=== PATIENT | male | born 1950 | race Caucasian/White ===

== ENCOUNTER → 2017-07-06 | Outpatient (CLI) | payer MEDICARE ==
[2017-07-06 14:08] LABS: BASO # 0.1 10^3/uL (0.0-0.2); BASO % 1.4 % (0.0-1.0); EOS # 0.3 10^3/uL (0.0-0.50); EOS % 3.7 % (0.0-3.0); HEMOGLOBIN 14.2 g/dl (13.5-17.5); IMMATURE GRANULOCYTE % 0.6 % (0-3.0); LYMPH # 1.5 10^3/uL (1.5-4.5); MEAN CORPUSCULAR HEMOGLOBIN 32.1 pg (27.0-33.0); MEAN CORPUSCULAR VOLUME 97.1 fl (80.0-96.0); MONO # 0.6 10^3/uL (0.0-0.8); MONO % 8.1 % (0.0-5.0); NEUTROPHILS # 4.7 10^3/uL (1.8-7.7); NEUTROPHILS % 65.2 % (36.0-66.0); PLATELET COUNT, AUTOMATED 167 10^3/uL (150-450); RED BLOOD COUNT 4.43 10^6/uL (4.30-6.10); RED CELL DISTRIBUTION WIDTH 13.3 % (11.5-14.5); WHITE BLOOD COUNT 7.3 10^3/uL (4.0-10.0)
[2017-07-06 14:13] LABS: ANION GAP 6 MEQ/L (8-16); BLOOD UREA NITROGEN 16 MG/DL (7-18); CARBON DIOXIDE LEVEL 29 MEQ/L (21-32); CHLORIDE LEVEL 103 MEQ/L (98-107); CREATININE FOR GFR 1.04 MG/DL (0.70-1.30); GLOMERULAR FILTRATION RATE > 60.0 (>49); GLUCOSE, FASTING 97 MG/DL (70-100); POTASSIUM SERUM 4.5 MEQ/L (3.5-5.1); SODIUM LEVEL 138 MEQ/L (136-145)
[2017-07-06 14:16] LABS: INR 1.87; PROTHROMBIN TIME 22.1 SECONDS (12.4-14.5)
[2017-07-06 14:17] LABS: PARTIAL THROMBOPLASTIN TIME 38.3 SECONDS (26.8-37.9)
== END ==
LOC: M SMT 11:14
DX: Z01.818 Encounter for other preprocedural examination (principal); I70.211 Atherosclerosis of native arteries of extremities with intermittent claudication, right leg; D69.8 Other specified hemorrhagic conditions
CPT/HCPCS: 80048

== ENCOUNTER 2017-08-08 11:53 | Day surgery (SDC) | payer MEDICARE ==
[2017-08-08] MEDS ORDERED: LIDOCAINE 2% INJ 100 MG/5 ML SDV (FOR ANES.) As Ordered (12:27)
[2017-08-08] MEDS ORDERED: fentaNYL 100 MCG/2 ML INJECTION (J3010) As Ordered (12:27)
[2017-08-08] MEDS ORDERED: MIDAZOLAM INJ 2 MG/2 ML VIAL (J2250) As Ordered (12:27)
[2017-08-08] MEDS ORDERED: ROCURONIUM BROMIDE 50 MG/5 ML VIAL As Ordered (12:27)
[2017-08-08] MEDS ORDERED: ONDANSETRON 4MG/2ML VIAL (J2405) As Ordered (12:27)
[2017-08-08] MEDS ORDERED: dexameTHASONE 4 MG/ML 1ML VIAL (J1100) As Ordered (12:27)
[2017-08-08] MEDS ORDERED: PROPOFOL 200 MG/20 ML VIAL As Ordered (12:27)
[2017-08-08] MEDS: LR 1,000 ML IV (12:58)
[2017-08-08] MEDS: CETACAINE SPRAY 5GM As Ordered (13:10)
[2017-08-08] MEDS ORDERED: NEOSTIGMINE 10 MG/10 ML VIAL (J2710) As Ordered (14:43)
[2017-08-08] MEDS ORDERED: GLYCOPYRROLATE INJ 0.2 MG/ML 2 ML VIAL As Ordered (14:44)
[2017-08-08] MEDS ORDERED: fentaNYL 100 MCG/2 ML INJECTION (J3010) IV (15:30)
[2017-08-08] MEDS ORDERED: PERCOCET 5MG/325MG TAB PO (15:30)
[2017-08-08] MEDS ORDERED: ONDANSETRON 4MG/2ML VIAL (J2405) IV (15:30)
[2017-08-08] MEDS ORDERED: HYDROMORPHONE HCL 0.5 MG/ 0.5 ML SYRINGE (J1170 PER 1) IV (15:30)
[2017-08-08] MEDS ORDERED: LR 1,000 ML IV (15:30)
== END 2017-08-08 16:12 | disposition home or self-care (01) ==
LOC: M SDC 16:12
DX: R91.1 Solitary pulmonary nodule (principal); J44.9 Chronic obstructive pulmonary disease, unspecified; I25.10 Atherosclerotic heart disease of native coronary artery without angina pectoris; I25.2 Old myocardial infarction; I11.9 Hypertensive heart disease without heart failure; R09.82 Postnasal drip; J33.9 Nasal polyp, unspecified; I48.91 Unspecified atrial fibrillation; E78.00 Pure hypercholesterolemia, unspecified; I73.9 Peripheral vascular disease, unspecified; K21.9 Gastro-esophageal reflux disease without esophagitis; R06.02 Shortness of breath; Z79.899 Other long term (current) drug therapy; Z79.82 Long term (current) use of aspirin; Z87.891 Personal history of nicotine dependence; Z01.812 Encounter for preprocedural laboratory examination; Z79.01 Long term (current) use of anticoagulants; Z95.5 Presence of coronary angioplasty implant and graft; Z95.810 Presence of automatic (implantable) cardiac defibrillator; Z95.0 Presence of cardiac pacemaker
CPT/HCPCS: 31629

== ENCOUNTER → 2017-08-08 | Outpatient (CLI) | payer MEDICARE ==
[2017-08-08 11:22] LABS: INR 1.07
[2017-08-08 11:23] LABS: PARTIAL THROMBOPLASTIN TIME 34.4 SECONDS (25.4-37.6)
== END ==
LOC: M LAB 10:52
DX: Z01.812 Encounter for preprocedural laboratory examination (principal); Z79.01 Long term (current) use of anticoagulants

== ENCOUNTER → 2017-10-24 | Outpatient (CLI) | payer MEDICARE | LOC: M RAD 11:47 | DX: M79.662 Pain in left lower leg (principal); R60.0 Localized edema | CPT/HCPCS: 93971 ==

== ENCOUNTER → 2017-10-26 | Outpatient (REF) ==
[2017-10-26 13:59] LABS: HEMOGLOBIN 13.4 g/dl (13.5-17.5); MEAN CORPUSCULAR HEMOGLOBIN 31.2 pg (27.0-33.0); MEAN CORPUSCULAR HGB CONC 31.9 g/dl (32.0-36.5); MEAN CORPUSCULAR VOLUME 97.9 fl (80.0-96.0); PLATELET COUNT, AUTOMATED 239 10^3/uL (150-450); RED BLOOD COUNT 4.29 10^6/uL (4.30-6.10); RED CELL DISTRIBUTION WIDTH 13.7 % (11.5-14.5); WHITE BLOOD COUNT 5.2 10^3/uL (4.0-10.0)
[2017-10-26 14:26] LABS: ANION GAP 10 MEQ/L (8-16); BLOOD UREA NITROGEN 13 MG/DL (7-18); CALCIUM LEVEL 9.5 MG/DL (8.8-10.2); CARBON DIOXIDE LEVEL 27 MEQ/L (21-32); CHLORIDE LEVEL 103 MEQ/L (98-107); CREATININE FOR GFR 0.81 MG/DL (0.70-1.30); GLOMERULAR FILTRATION RATE > 60.0 (>49); GLUCOSE, FASTING 96 MG/DL (70-100); POTASSIUM SERUM 4.1 MEQ/L (3.5-5.1); SODIUM LEVEL 140 MEQ/L (136-145)
== END ==
DX: I48.91 Unspecified atrial fibrillation (principal)

== ENCOUNTER → 2017-10-30 | Outpatient (REF) ==
[2017-10-30 17:05] LABS: HEMATOCRIT 39.2 % (42.0-52.0); HEMOGLOBIN 12.5 g/dl (13.5-17.5); MEAN CORPUSCULAR HEMOGLOBIN 31.3 pg (27.0-33.0); MEAN CORPUSCULAR HGB CONC 31.9 g/dl (32.0-36.5); PLATELET COUNT, AUTOMATED 204 10^3/uL (150-450); RED CELL DISTRIBUTION WIDTH 13.5 % (11.5-14.5); WHITE BLOOD COUNT 5.2 10^3/uL (4.0-10.0)
[2017-10-30 17:51] LABS: ANION GAP 13 MEQ/L (8-16); BLOOD UREA NITROGEN 10 MG/DL (7-18); CALCIUM LEVEL 8.9 MG/DL (8.8-10.2); CARBON DIOXIDE LEVEL 22 MEQ/L (21-32); CHLORIDE LEVEL 107 MEQ/L (98-107); CREATININE FOR GFR 0.72 MG/DL (0.70-1.30); GLOMERULAR FILTRATION RATE > 60.0 (>49); GLUCOSE, FASTING 84 MG/DL (70-100); POTASSIUM SERUM 4.1 MEQ/L (3.5-5.1); SODIUM LEVEL 142 MEQ/L (136-145)
== END ==
DX: R41.82 Altered mental status, unspecified (principal)

== ENCOUNTER 2017-11-07 12:16 | Outpatient (REF) ==
[2017-11-08 10:54] LABS: ANION GAP 9 MEQ/L (8-16); BLOOD UREA NITROGEN 11 MG/DL (7-18); CALCIUM LEVEL 9.3 MG/DL (8.8-10.2); CARBON DIOXIDE LEVEL 27 MEQ/L (21-32); CHLORIDE LEVEL 105 MEQ/L (98-107); CREATININE FOR GFR 0.81 MG/DL (0.70-1.30); GLOMERULAR FILTRATION RATE > 60.0 (>49); GLUCOSE, FASTING 144 MG/DL (70-100); POTASSIUM SERUM 3.6 MEQ/L (3.5-5.1); SODIUM LEVEL 141 MEQ/L (136-145)
== END 2017-11-08 ==
DX: R60.9 Edema, unspecified (principal)

== ENCOUNTER → 2017-11-07 | Outpatient (CLI) | payer MEDICARE | LOC: M PLARAD 12:17 | DX: C34.11 Malignant neoplasm of upper lobe, right bronchus or lung (principal) | CPT/HCPCS: 78815 ==

== ENCOUNTER → 2017-11-14 | Outpatient (CLI) | payer MEDICARE | LOC: M ONCR 13:00 | DX: C34.91 Malignant neoplasm of unspecified part of right bronchus or lung (principal) | CPT/HCPCS: G0463 ==

== ENCOUNTER → 2017-11-16 | Outpatient (CLI) | payer MEDICARE | LOC: M RAD 13:42 | DX: C34.91 Malignant neoplasm of unspecified part of right bronchus or lung (principal); I82.622 Acute embolism and thrombosis of deep veins of left upper extremity | CPT/HCPCS: 93971 ==

== ENCOUNTER → 2017-11-21 | Outpatient (CLI) | payer MEDICARE | LOC: M RAD 13:59 | DX: C34.90 Malignant neoplasm of unspecified part of unspecified bronchus or lung (principal) | CPT/HCPCS: 71046 ==

== ENCOUNTER 2017-12-04 13:28 | Outpatient (RCR) | payer MEDICARE | END 2017-12-06 | LOC: M ONCR 13:28 | DX: C34.11 Malignant neoplasm of upper lobe, right bronchus or lung (principal) | CPT/HCPCS: 77334 ==

== ENCOUNTER 2017-12-08 14:14 | Outpatient (RCR) | payer MEDICARE | END 2018-01-05 | LOC: M ONCR 14:14 | DX: C34.11 Malignant neoplasm of upper lobe, right bronchus or lung (principal) | CPT/HCPCS: 77300 ==

== ENCOUNTER → 2017-12-21 | Outpatient (CLI) | payer MEDICARE | LOC: M RAD 13:39 | DX: R60.9 Edema, unspecified (principal); Z86.73 Personal history of transient ischemic attack (TIA), and cerebral infarction without residual deficits | CPT/HCPCS: 93971 ==

== ENCOUNTER 2018-01-23 12:28 | Outpatient (RCR) | payer MEDICARE ==
--- NOTE | 2018-01-23 07:58 | RADONC ---
RADIATION ONCOLOGY PROGRESS NOTE DATE: 01/22/2018 CHART NUMBER: [id number] Mr. Macedo is presently a dose of 4680 cGy to his right lung and overall is tolerating his treatments fairly well. He is complaining of skin tenderness specifically over the back. REVIEW OF SYSTEMS: The patient's review of systems is positive for tenderness of his back skin, but is otherwise unchanged. He continues have all the physical issues he had prior to initiation of treatment. PHYSICAL EXAMINATION: On physical exam the patient's skin shows erythema with some dry desquamation over his back. His physical exam is otherwise unchanged. ASSESSMENT: The patient is tolerating his treatments fairly well. I have sent in a prescription for Silvadene to be applied topically. He will be treated tomorrow and receive chemotherapy and then he will take off Monday, and Monday and restart following [place].
[~2018-01-23 12:28] MED LIST: AMLO5TAB4 PO; ANOR1AER INH; APAP500T10 PO; ASPI1TAB PO; CARV6.25 PO; CRES20TA PO; FURO40TA2 PO; KLOR20TA42 FT; LISI40TAB PO; MODA100T13 PO; PRIL20TA2 PO; ROSU40TA3 PO; WARF-22 PO; WARF-23 PO; XARE20TA PO; ZYLO300T6 PO
[2018-01-31] MEDS ORDERED: VICO5TAB16 PO (08:56)
--- NOTE | 2018-02-02 10:46 | RADONC ---
RADIATION ONCOLOGY PROGRESS NOTE DATE: 01/31/2018 CHART #: [id number] Mr. Macedo with lung cancer is currently receiving local regional radiotherapy and he has achieved a dose of 4860 cGy of an anticipated 6840 cGy. He is tolerating his therapy reasonably well with the exception of some skin irritation for which he has been placed on hold. I have discussed with , as to the patient's overall condition. She felt that the patient should remain on hold from his radiotherapy due to the skin irritation and has actually requested that she write him some pain medication because it is causing him significant discomfort. In view of the patient's current physical issues, I am in agreement to withhold therapy until the end of the week. He will be reevaluated next Monday when Dr. Gamez returns from his time off (02/05/2018) Thank you for allowing us the opportunity of participation in the management of this fine gentleman. NOBLE
--- NOTE | 2018-02-07 14:19 | RADONC ---
RADIATION ONCOLOGY PROGRESS NOTE: DATE: 02/05/2018 CHART NUMBER: [id number] Mr. Macedo is thus far at a dose of 4680 cGy to his lung and was last treated on 01/23/2018. The patient did not come in once again today for treatment. He had been complaining of painful skin reaction. The patient will remain on our treatment schedule and we are more than willing to restart treatment if he so desires. We have previously spoken with him about the possibility of hospice as well.
== END 2018-02-05 ==
LOC: M ONCR 12:28
PROVIDERS: ATTEND Radiology Radiation Oncology
DX: C34.11 Malignant neoplasm of upper lobe, right bronchus or lung (principal)

== ENCOUNTER 2018-02-23 12:32 | Outpatient (RCR) | payer MEDICARE ==
--- NOTE | 2018-02-20 07:18 | RADONC ---
RADIATION ONCOLOGY PROGRESS NOTE DATE: 02/19/2018 CHART NUMBER: [id number] Mr. Macedo is presently at a dose of 6120 cGy to his right lung and is tolerating treatments quite well at this point with no complaints at this time related to his radiation therapy. He is having no increased difficulty breathing or swallowing. The patient's review of systems is noncontributory. Denies nausea, vomiting, fevers, chills, night sweats, diplopia, headaches, anxiety or depression, anorexia, weight loss, visual disturbances, chest pain, urinary or bowel difficulties, bone pain, or neurological problems. PHYSICAL EXAMINATION: The patient's skin is in good in condition and has healed nicely. The remainder of his physical exam remains unchanged. Mr. Macedo is tolerating treatments quite well and radiation will continue as scheduled.
[~2018-02-23 12:32] MED LIST changes: -AMLO5TAB4 PO; +AMLO5TAB6 PO; +LISI40TA PO; -LISI40TAB PO; +VICO5TAB16 PO
--- NOTE | 2018-02-27 07:17 | RADONC ---
RADIATION ONCOLOGY TREATMENT SUMMARY DATE: 02/23/2018 CHART #: [id number] DIAGNOSIS: Right lung cancer. STAGE: III B, T4N2M0. ECOG PERFORMANCE STATUS: 4. TREATMENT SUMMARY: Mr. 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 We treated the patient to his primary site for a total dose of 6840 cGy delivered in 38 fractions of 180 cGy each over 74 elapsed days from 12/11/2017 through 02/23/2018. The patient's primary site was treated on a linear accelerator utilizing a 15 MV photon beam. 3-D conformal technique was utilized. Mr. Macedo tolerated his treatments quite well with no significant difficulties related to his radiation therapy other than a brisk skin reaction. The patient is scheduled see me again in 1 month for further followup. He will also continue to be followed by his other physicians as well. cc: AUGUSTA Ibrahim MD A. Melynne Youngblood, MD
[2018-03-06] MEDS ORDERED: DEXA4TA PO (12:23)
[2018-03-06] MEDS ORDERED: CLAR10CA3 PO (12:25)
[2018-03-09] MEDS ORDERED: DEXA4TA PO (15:00)
[2018-03-12] MEDS ORDERED: DEXA4TA PO (11:32)
== END 2018-03-08 ==
LOC: M ONCR 12:32
PROVIDERS: ATTEND Radiology Radiation Oncology
DX: C34.11 Malignant neoplasm of upper lobe, right bronchus or lung (principal)

== ENCOUNTER → 2018-04-04 | Outpatient (CLI) | payer MEDICARE ==
[~2018-04-04] MED LIST changes: +CLAR10CA3 PO; +DEXA4TA PO
--- NOTE | 2018-04-09 09:51 | RADONC ---
RADIATION ONCOLOGY FOLLOWUP NOTE DATE: 04/04/2018 CHART NUMBER: [id number] DIAGNOSIS: Right lung cancer. STAGE III B, T4N2M0. ECOG PERFORMANCE STATUS: 4. FOLLOWUP NOTE: Mr. 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 The patient presents today reporting that generally he is doing well. He has no complaints at this time related to his radiation therapy. He reports that he is able to swallow without difficulty and has no increased shortness of breath. The patient does report that he is continuing with his chemotherapy and has another cycle to go. The patient review of systems remains positive for his physical limitations secondary to a stroke. He cannot use his left arm or leg. He has decreased energy and continues to have some shortness of breath. He requires a wheelchair. He denies nausea, vomiting, fevers, chills, night sweats, visual disturbances, chest pain, urinary or bowel difficulties. 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 HEENT exam is normocephalic, atraumatic. Extraocular movements are intact. There is no palpable cervical, supraclavicular, infraclavicular, axillary or inguinal lymphadenopathy present. His lungs are generally clear to auscultation and percussion. His heart has regular rate and rhythm. Abdominal exam was not undertaken. ASSESSMENT: The patient is continuing his close management and follow up with his medical oncologist. He is continuing with systemic therapy. In light of this, I am discharging him from our followup except on a p.r.n. basis. cc: AUGUSTA Ibrahim MD A. Melynne Youngblood, MD
== END ==
LOC: M ONCR 10:36
PROVIDERS: ATTEND Radiology Radiation Oncology
DX: C34.11 Malignant neoplasm of upper lobe, right bronchus or lung (principal)

== ENCOUNTER → 2018-06-06 | Outpatient (CLI) | payer MEDICARE ==
[~2018-06-06] MED LIST changes: -ASPI1TAB PO; +ASPI81TA26 PO; -CRES20TA PO; +CRES20TA2 PO; -VICO5TAB16 PO; +VICO5TAB17 PO
--- NOTE | 2018-06-07 16:10 | REP ---
HISTORY: Lung carcinoma. COMPARISON: 11/07/2017 and 08/24/2017. After the intravenous administration of 8.0 mCi of FDG-18, triplane whole body PET/CT was performed from the skull base to the mid thighs. The large hypermetabolic right lung mass seen on the prior CT PET of 11/07/2017 is much smaller. Abnormal hypermetabolic activity is still seen in the right upper lobe with SUV values over 3.0 and some of which is pleural based. In addition, there is hypermetabolic activity of over 4.2 in the right suprahilar region. There is a new focus of abnormal hypermetabolic activity seen in the left lung lower lobe abutting the descending thoracic aorta having SUV values equaling 6.0. This area measures approximately 2.3 cm. The right upper lobe mass which is no longer hypermetabolic measures approximately 2.4 x 2.7 cm. This excludes the hilar hypermetabolic component, which measures approximately 1.8 cm. There is a small right pleural effusion. No other abnormal hypermetabolic foci are seen in the neck, chest, abdomen or pelvis. There is hypermetabolic activity seen in the left shoulder glenohumeral joint which is nonspecific, but may need further imaging with contrast enhanced CT since the patient has a pacemaker and is not a candidate for MRI. This has SUV values greater than 6.0. Metastatic versus infectious versus active arthritic changes should be considered. IMPRESSION: 1. Intrathoracic hypermetabolic foci and right pleural effusion as described above. 2. Left shoulder hypermetabolic activity as described above. 3. Scattered nonspecific areas of increased FDG-18 in the spine too numerous to count or individually assess, but with multiple areas of hypermetabolic activity with SUV values up to 4.0. This should be correlated with conventional bone scintigraphy to assess for metastatic skeletal lesions. Electronically Signed by James Brown DO 06/07/2018 06:58 P
== END ==
LOC: M PLARAD 10:17
PROVIDERS: ATTEND Internal Medicine Hematology & Oncology
DX: C34.11 Malignant neoplasm of upper lobe, right bronchus or lung (principal); J91.8 Pleural effusion in other conditions classified elsewhere
CPT/HCPCS: 78815; A9552

== ENCOUNTER → 2018-10-04 | Outpatient (CLI) | payer MEDICARE ==
[~2018-10-04] MED LIST changes: +BUPIVACAINE HCL 0.5% 10 ML VIAL As Ordered ONE; +LIDOCAINE 2% MDV 20 ML VIAL As Ordered ONE; +PRED20TA PO; +ROSU20TA5 PO; -ROSU40TA3 PO; +ROSU40TA4 PO; +ceFAZolin 1GM INJ (J0690 PER 500MG) As Ordered ONE
--- NOTE | 2018-10-08 22:24 | ROOPDOC ---
[facility] Report Of Operation Report of Operation DATE OF PROCEDURE: 10/04/2018 PREOPERATIVE DIAGNOSIS: Lung cancer. POSTOPERATIVE DIAGNOSIS: Lung cancer. PROCEDURE: Ultrasound guided right internal jugular vein cannulation. Fluoroscopic guided right internal jugular vein tunneled central venous catheter with subcutaneous port placement with placement of a power injectable Bard Fontenelle Power Port with 24 centimeter length catheter. SURGEON: Dr. Nolan Esteves M.D. AGER OPERATOR: Simon Song ANESTHESIA: Local with 20 mL of 2% lidocaine mixed with 0.5% Marcaine. SEDATION TIME: None. ANTIBIOTICS: Ancef 2 g FLUOROSCOPY TIME: 0.1 minutes. CONTRAST: None. ESTIMATED BLOOD LOSS: 10 mL. IV FLUID: 50 mL. COMPLICATIONS: None. DRAINS: None. SPECIMENS: None. IMPLANTS: Right internal jugular vein tunneled central venous catheter with subcutaneous port placement using a Bard Fontenelle Power Port which is power injectable. INDICATION: Patient is a 68-year-old male with lung cancer who requires central venous access for chemotherapy and blood draws. Patient will undergo a right tunneled central venous catheter placement with subcutaneous port. Procedure was described and explained to the patient in detail including drawing of pictures showing the procedure and anatomy associated with insertion of the tunneled central venous catheter was subcutaneous port. Risks, benefits, and alternative treatment options were discussed with the patient. Alternative treatment options included, but were not limited to, no intervention. Benefits included, but were not limited to, access for chemotherapy infusion centrally, avoiding recurrent venous cannulations , IV placements and sclerosis of peripheral veins. Risks included, but were not limited to, infection, bleeding, pneumothorax, hemothorax, possible need for further open surgical intervention, renal failure requiring hemodialysis, failure of the tunneled central venous catheter with subcutaneous port to function requiring evaluation, revision and/or replacement, adverse and/or allergic reaction to the sedation medications and/or local anesthetics, anesthetic and sedation complication, possible need for transfusion of blood products, allergic reaction and/or complication from the prepping and draping materials, bruising, scarring, cerebrovascular accident, myocardial infarction, pulmonary embolus, deep venous thrombosis, poor satisfaction, poor results, poor outcome, loss of limb and loss of life. Risks of not performing the port insertion included but were not limited to inability to gain access for chemotherapy, inability to gain access for blood draws and laboratory evaluation, sclerosis and thrombophlebitis of peripheral veins and pain associated with continued peripheral cannulations. Patient's questions were answered. Patient voices understanding of these risks, benefits, and alternative treatment options. Patient voices acceptance of the risks associated with placement of a central venous tunneled catheter with subcutaneous port placement and consents to proceed with tunneled central venous catheter with subcutaneous port placement. No guarantees or promises were made to the patient regarding the results or outcome of the procedure. DESCRIPTION OF PROCEDURE: Patient was taken to the angiography suite, placed supine on the angiography room table, and prepped and draped in a standard surgical fashion. A time-out was conducted by myself and the team members involved in the procedure, confirming the correct procedure, patient, and laterality. Ultrasound was then used to evaluate the right internal jugular vein, which was noted to be easily compressible, widely patent, and free of thrombus. Ultrasound was then used to guide cannulation of the right internal jugular vein with a micropuncture needle with real-time concurrent visualization of the entry of the needle into the right internal jugular vein with a hardcopy image preserved. The skin overlying the right internal jugular vein was anesthetized with 2% lidocaine mi xed with 0.5% Marcaine prior to cannulation. Once the right internal jugular vein was cannulated, the micropuncture wire was advanced through the micropuncture needle, which was up-sized to a micropuncture sheath. A J wire was advanced through the micropuncture sheath. The right internal jugular vein was then dilated under fluoroscopic guidance, and a #8-Micronesian introducer sheath was positioned through the right internal jugular vein into the superior vena cava. The wire was removed, and the #8-Micronesian s brandan lumen catheter, which had been tunneled from a puncture wound in the right chest and brought out at the puncture wound at the right internal jugular vein entry site, was advanced through the introducer sheath under fluoroscopic guidance. The introducer sheath was then removed, and the catheter was positioned with the tip in the superior vena cava/right atrial junction under fluoroscopic guidance. The catheter was cut to a length of 24 cm and attached to the port. A pocket was created in the right chest after anesthetizing the overlying tissue with 2% lidocaine mixed with 0.5% Marcaine. The port was placed in the pocket and cannulated using an access needle. The port was noted to aspirate and flush easily and then was flushed with heparinized saline. The incision in the chest was closed using # 4-0 Monocryl suture in inverted interrupted fashion. The puncture wound in the right neck was closed using a #4-0 Monocryl in inverted interrupted fashion. Steri-Strips and dressings were applied. Patient tolerated the procedure well. All instrument, sponge, and needle counts were correct at the end of the case. There were no complications. Dr. Esteves was present for and directed the entire case. Patient was transferred to the recovery area and subsequently discharged in stable condition. The tunneled central venous catheter with subcutaneous port is stable for use for access. RADIOLOGIC SUPERVISION AND INTERPRETATION: The ultrasound showed the right internal jugular vein to be easily compressible, widely patent, and free of thrombus. Ultrasound was used to guide cannulation of the right internal jugular vein with real-time concurrent visualization of the entry of the needle into the right internal jugular vein. The right internal jugular vein was then dilated under fluoroscopic guidance with a #8-Micronesian introducer sheath placed under fluoroscopic guidance. The 8 Micronesian single lumen catheter was advanced through the introducer sheath positioned with the tip in the superior vena/right atrial junction using fluoroscopic guidance with final fluoroscopic image showing the catheter and port to be in good position and good alignment with the tip in the superior vena cava/right atrial junction with no pneumo- or hemothorax noted. The tunneled central venous catheter with subcutaneous port is stable for use. Ramana Esteves MD Oct 08, 2018 22:24
== END ==
LOC: M IRPRO 12:30
PROVIDERS: ATTEND Surgery Vascular Surgery
DX: C34.80 Malignant neoplasm of overlapping sites of unspecified bronchus and lung (principal); I10 Essential (primary) hypertension; E78.5 Hyperlipidemia, unspecified; J44.9 Chronic obstructive pulmonary disease, unspecified; K21.9 Gastro-esophageal reflux disease without esophagitis; M10.9 Gout, unspecified
CPT/HCPCS: 36563; 76937; 77001; C1788; C1894; J0690

== ENCOUNTER → 2018-10-09 | Outpatient (CLI) | payer MEDICARE ==
[~2018-10-09] MED LIST changes: -BUPIVACAINE HCL 0.5% 10 ML VIAL As Ordered ONE; -LIDOCAINE 2% MDV 20 ML VIAL As Ordered ONE; -ROSU20TA5 PO; -ceFAZolin 1GM INJ (J0690 PER 500MG) As Ordered ONE
--- NOTE | 2018-10-10 08:24 | REP ---
PET/CT: History: Restaging lung cancer. Status post chemo and radiation therapy. Comparisons: Comparison PET/CT studies are dated June 06, 2018, November 07, 2017, and August 24, 2017. TECHNIQUE: 49 minutes following the intravenous injection of a 8.55 mCi dose of F-18 FDG, three-dimensional PET scintigraphy is acquired from the skull base to the proximal thighs. Triplanar noncontrast CT scanning is acquired through the same anatomic range for attenuation correction, and image registration with scan parameters optimized to minimize radiation exposure to the patient. PET scintigraphy and CT datasets were fused and displayed on a workstation with multiplanar and projection display capability. PET/CT Findings: There is an area of encephalomalacia in the right temporal lobe and right basal ganglia consistent with an old cerebral infarction. There is a left-sided transvenous pacemaker and a right-sided Zmrmch-O-Yacn. There is a moderate size right pleural effusion. There is partial atelectasis in the right upper lobe of the lung. There is extensive vascular calcification. There appears to be a left inguinal hernia transmitting abdominal fat. On PET scintigraphy images, there is no abnormal head and neck uptake. There is skeletal muscle uptake about the right chest which is mild and may be post radiation therapy change. There is an ill-defined area of mildly hypermetabolic uptake in the collapsed portion of the right upper lobe with maximum standard uptake value 4.56 which is nonspecific. There is an area of similar avidity mildly hypermetabolic uptake in the anteromedial pleuroparenchymal region of the left upper lobe adjacent to what appears to be some epicardial pace making leads, maximum standard uptake value 4.83. These areas were not present on the prior PET/CT. The moderate right pleural effusion is significantly larger than it was on June 06, 2018. There is, however, no definite hypermetabolic uptake associated with the pleural effusion. There are parenchymal opacities in the right hilus and right perihilar region with low-level hypermetabolic uptake as well in the range of 4.14 to 3.55. Morphologically, this is most compatible with postradiation pneumonitis and fibrosis. No definite hypermetabolic adenopathy is seen. No abnormal adrenal uptake is seen. Normal hepatic, splenic, gastrointestinal, and genitourinary FDG distribution is noted in the abdomen and pelvis. No abnormal hypermetabolic uptake is seen in the abdomen and pelvis. No suspicious skeletal hypermetabolic uptake is visible. Impression: 1. Moderate size right pleural effusion, increased since the prior study. 2. 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 3. Encephalomalacia related to old right cerebral infarction. Electronically Signed by Chris Conklin MD 10/10/2018 12:09 P
== END ==
LOC: M PLARAD 12:24
PROVIDERS: ATTEND Internal Medicine Hematology & Oncology
DX: C34.11 Malignant neoplasm of upper lobe, right bronchus or lung (principal)
CPT/HCPCS: 78815; A9552

== ENCOUNTER → 2018-10-24 | Outpatient (CLI) | payer MEDICARE ==
[~2018-10-24] MED LIST changes: +ROSU20TA5 PO
[2018-10-24 14:20] VITALS: BP 138/94
--- NOTE | 2018-10-24 14:36 | REP ---
CHEST, TWO VIEWS: Two views of the chest are performed status post right thoracentesis. There is no evidence of pneumothorax. There is mild residual right pleural fluid or thickening. Right paratracheal soft tissue is noted. There is a right central venous catheter. Multiple sternal wires are present. There is a left single lead pacemaker. Cardiac silhouette is slightly prominent. IMPRESSION: No pneumothorax status post right thoracentesis with mild residual right pleural fluid/thickening. Electronically Signed by Matt Vallejo MD 10/25/2018 04:45 P
--- NOTE | 2018-10-25 16:35 | REP ---
Ultrasound-guided thoracentesis The procedure was performed by JEFFY Hodge, under the direct supervision of Dr. Vallejo. The risks and benefits of the procedure were explained to the patient and informed consent was obtained both verbally and written. Directly prior to the start of the procedure, a formal timeout was completed in the exam room. Pleural fluid in the right lung zone was localized using ultrasound guidance. The skin was prepped and draped in a sterile fashion. 4 ml of 1% lidocaine was used as a local anesthetic. Using ultrasound guidance, an 8-Austrian multi side-hole catheter was inserted and advanced into the fluid. 1,500 ml of cabrera colored fluid was withdrawn and sent to the lab for analysis. The patient tolerated the procedure well and there were no immediate complications. After the appropriate amount of monitored convalescence, the patient was discharged from the department. Reviewed by JEFFY Charles 10/24/2018 02:35 P Electronically Signed by Matt Vallejo MD 10/25/2018 04:26 P
== END ==
LOC: M IRPRO 10:40
DX: J90 Pleural effusion, not elsewhere classified (principal)

== ENCOUNTER → 2018-12-10 | Outpatient (CLI) | payer MEDICARE ==
--- NOTE | 2018-12-10 11:33 | REP ---
CHEST X-RAY: Two views. HISTORY: Pleural effusion. COMPARISON STUDY: October 24, 2018. FINDINGS: Moderate cardiac enlargement is noted. There is a pacemaker with an epicardial and transvenous lead in place unchanged. Median sternotomy wires are again noted. The aorta is tortuous. There is a right-sided Efwvnf-H-Xvkm catheter. There is a small to moderate amount of right pleural fluid again noted, increased in size from the October 24, 2018 prior study. No new infiltrate. There is no evidence of pulmonary edema. IMPRESSION: Increasing small right pleural effusion. Cardiomegaly with pacemaker. Right-sided Kdjfgq-A-Insa catheter. Electronically Signed by Chris Conklin MD 12/10/2018 12:37 P
== END ==
LOC: M RAD 10:57
PROVIDERS: ATTEND Internal Medicine Hematology & Oncology
DX: J90 Pleural effusion, not elsewhere classified (principal); I51.7 Cardiomegaly; I25.5 Ischemic cardiomyopathy; Z95.5 Presence of coronary angioplasty implant and graft; Z97.8 Presence of other specified devices

== ENCOUNTER → 2018-12-10 | Outpatient (CLI) | payer MEDICARE ==
[2018-12-10 13:18] LABS: BLOOD UREA NITROGEN 14 MG/DL (7-18); CALCIUM LEVEL 9.2 MG/DL (8.8-10.2); CARBON DIOXIDE LEVEL 36 MEQ/L (21-32); CHLORIDE LEVEL 95 MEQ/L (98-107); CREATININE FOR GFR 0.85 MG/DL (0.70-1.30); GLOMERULAR FILTRATION RATE > 60.0 (>49); GLUCOSE, FASTING 80 MG/DL (70-100); POTASSIUM SERUM 3.6 MEQ/L (3.5-5.1); SODIUM LEVEL 138 MEQ/L (136-145)
== END ==
LOC: M LAB 11:34
PROVIDERS: ATTEND Physician Assistant
DX: I25.5 Ischemic cardiomyopathy (principal)

== ENCOUNTER → 2019-01-21 | Outpatient (CLI) | payer MEDICARE ==
[~2019-01-21] MED LIST changes: +AMOX500T PO
--- NOTE | 2019-01-21 11:06 | REP ---
LEFT HIP, TWO VIEWS: Two views of the left hip are performed. No acute fracture or dislocation is seen. There is mild joint space narrowing, subchondral sclerosis and spurring. Vascular calcifications and metallic clips are seen medial to the proximal femur. IMPRESSION: Mild degenerative changes. Electronically Signed by Matt Vallejo MD 01/21/2019 04:22 P
--- NOTE | 2019-01-21 14:32 | REP ---
WHOLE BODY RADIONUCLIDE BONE SCAN: HISTORY: Left hip pain. History of lung cancer. Status post chemoradiation therapy. The patient also reports right hip pain and back pain. TECHNIQUE: 22.0 mCi of technetium 99m MDP is injected and standard whole body bone scan images are acquired. SCINTIGRAPHIC FINDINGS: There is mild arthritic uptake in the medial compartment of the left knee. Otherwise, distribution of skeletal tracer is normal with uptake in bilateral kidneys and in the urinary bladder. There is no evidence to suggest skeletal metastatic disease. Hip and pelvic uptake is normal and symmetric. IMPRESSION: Mild arthritic uptake in the left knee. Otherwise negative radionuclide bone scan. Electronically Signed by Chris Conklin MD 01/21/2019 03:33 P
== END ==
LOC: M RAD 09:51
PROVIDERS: ATTEND Internal Medicine Hematology
DX: C34.91 Malignant neoplasm of unspecified part of right bronchus or lung (principal)
CPT/HCPCS: 73502; 78306; A9503

== ENCOUNTER 2019-03-15 10:16 | Inpatient (IN) | payer MEDICARE ==
[~2019-03-15] VITALS: Ht 193 cm; Wt 110.2 kg
[2019-03-15] MEDS: FUROSEMIDE 40 MG TAB PO SCH ×2 (09:00→20:18)
[~2019-03-15 10:16] MED LIST changes: +CELE1CAP7 PO
[2019-03-15 14:22] VITALS: BP 134/81
[2019-03-15] MEDS ORDERED: AZIT50VL IV (15:14)
[2019-03-15] MEDS ORDERED: ROSU40TA4 PO (15:14)
[2019-03-15] MEDS ORDERED: CEFT1INJ5 IV (15:14)
[2019-03-15 16:00] VITALS: BP 145/81
--- NOTE | 2019-03-15 16:29 | CR.PDOC ---
General Date of Consultation: Mar 15, 2019 Referring Provider: A Attending Physician: VERO SOLOMON MD Consultation REASON FOR CONSULTATION/CHIEF COMPLAINT: R pleural effusion HISTORY OF PRESENT ILLNESS: NSCLC presenting with SOB and found to have recurrent R pleural effusion and troponin elevation to 7.8 Brief synopsis: I received a request for Mr. Macedo's transfer to [facility] from [facility] from Dr. Netta Soriano from the ED there. She told me that Mr. Macedo is a 69 yo man with lung CA and is a patient of Dr. Choi, with signicant cardiac history s/p CABG, has Afib on xarelto, has a PPM and a history of HTN, who came into the ED with SOB and NIELSEN and found have recurrence of a R pleural effusion on CXR in their ED, as well as an elevated troponin to 7.8 that she was reporting as "demand ischemia." When the nursing plumber supervisor, brought the case to me before I spoke with Dr. Soriano, I requested a repeat EKG and a repeat troponin given the degree of elevation, SOB and significant cardiac history and she repeated the troponin and EKG that she reported as troponin having risen to 8.3 while EKG was described as paced without acute ST changes. I then called Dr. Soriano to discuss my concern for transferring this patient with severe troponinemia for concern for acute ACS and possible VA requiring interventional cardiology without any facilities for PCI technology at [facility]. She then told me that she discussed the possible VA with the patient and his , and they declined the option for transfer to [place] for possible intervention for a heart attack citing that they would like him to be DNR/DNI without invasive procedures and moving towards comfort care and really their intention is to get him comfortable by drainage of his R pleural effusion and possible pleurx placement. At that point, it was made clear to me that he was being transferred to [facility] for palliative effusion drainage and palliative care consult as well continuing GOC with this oncologist and at that point, I accepted his transfer here. However on arrival to [facility], he did have the MOLST that was completed by his at [place] as DNR/DNI but the patient expressed that he wanted to have all interventions and on the designated provider speaking with his , she confirmed that they would like him transferred to a facility with potential for interventions if he is having a heart attack. At this time, Dr. Montes De Oca has be gun the effort to facilitate a transfer out to a PCI capable facility. Vital Signs/I&O Vital Signs Date Time Temp Pulse Resp B/P (MAP) Pulse Ox O2 Delivery O2 Flow Rate FiO2 03/15/19 14:22 97.8 70 18 134/81 (98) 99 Nasal Cannula 2.0 Allergies Coded Allergies: No Known Allergies (Unverified , 08/07/17) Home Medications Scheduled Amoxicillin (Amoxicillin) 500 Mg Tablet, 4 TAB PO ONCE for 1 Days, #30 Take 4 tablets (2 grams) po 2 hours prior to dental procedure Azithromycin (Azithromycin) 500 Mg Vial, 500 MG IV ONCE, (Reported) RECEIVED AT [facility] Carvedilol (Carvedilol) 6.25 Mg Tab, 6.25 MG PO BID, (Reported) Ceftriaxone Sodium (Ceftriaxone) 1 Gm Vial, 1 GM IV ONCE, (Reported) RECEIVED AT [facility] Furosemide (Furosemide) 40 Mg Tab, 40 MG PO DAILY, (Reported) Omeprazole Magnesium (Prilosec Otc) 20 Mg Tablet.dr, 20 MG PO DAILY, (Reported) Rivaroxaban (Xarelto) 20 Mg Tab, 20 MG PO QPM, (Reported) Rosuvastatin Calcium (Rosuvastatin Calcium) 40 Mg Tablet, 20 MG PO QPM, (Reported) Scheduled PRN Acetaminophen (Acetaminophen) 500 Mg Tab, 1,000 MG PO TID PRN for PAIN / FEVER, (Reported) VERO SOLOMON MD Mar 15, 2019 16:29
--- NOTE | 2019-03-15 16:49 | HPEPDOC ---
General Date of Admission Mar 15, 2019 at 14:22 Date of Service: Mar 15, 2019 Chief Complaint The patient is a 69-year-old male admitted with a reason for visit of Right Sided Plural Infusion. Source: Patient Exam Limitations: No limitations Timing/Duration: Day(s), Week(s) Severity: Moderate Associated Symptoms: Shortness of breath History of Present Illness Patient 69 years old with past history of CVA, atrial fibrillation, lung cancer was directly transferred to the hospital from [facility] with increased shortness of breath secondary to pleural effusion. 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 He had multiple pleuracentesis in the past. Also patient was found to have elevated troponin level 7.6, second troponin was 8.3. Patient denied any chest pain. After discussion with the patient and wool tamper Dr. Grant, transfer to [place] for possible cardiac catheterization was declined by patient. I did not find imaging study in the file from previous hospital. Home Medications Scheduled Amoxicillin (Amoxicillin) 500 Mg Tablet, 4 TAB PO ONCE Take 4 tablets (2 grams) po 2 hours prior to dental procedure Azithromycin (Azithromycin) 500 Mg Vial, 500 MG IV ONCE, (Reported) RECEIVED AT [facility] Carvedilol (Carvedilol) 6.25 Mg Tab, 6.25 MG PO BID, (Reported) Ceftriaxone Sodium (Ceftriaxone) 1 Gm Vial, 1 GM IV ONCE, (Reported) RECEIVED AT [facility] Furosemide (Furosemide) 40 Mg Tab, 40 MG PO DAILY, (Reported) Omeprazole Magnesium (Prilosec Otc) 20 Mg Tablet.dr, 20 MG PO DAILY, (Reported) Rivaroxaban (Xarelto) 20 Mg Tab, 20 MG PO QPM, (Reported) Rosuvastatin Calcium (Rosuvastatin Calcium) 40 Mg Tablet, 20 MG PO QPM, (Reported) Scheduled PRN Acetaminophen (Acetaminophen) 500 Mg Tab, 1,000 MG PO TID PRN for PAIN / FEVER, (Reported) Allergies Coded Allergies: No Known Allergies (Unverified , 08/07/17) Past Medical History Medical History Poorly differentiated carcinoma of the right upper lobe of the lung stage III B at diagnosis, clinically stage T4N2M0 disease, CVA, atrial fibrillation, left hemiparesis. The patient has a history of organic heart disease complicated by congestive heart failure syndrome in the past. Surgical History he underwent coronary artery bypass grafting of three vessels in 1997. There is history of femoral endarterectomy for peripheral arterial di sease in the year 2016, in he underwent spine surgery at the [facility] in 2007. The patient has an automated implanted defibrillator, and he has undergone hernia surgery in the past. Family History I personally reviewed the history and found not pertinent Social History * Smoker: former Smoker Alcohol: Denies Drugs: denies A-FIB/CHADSVASC A-FIB History Current/History of A-Fib/PAF?: Yes Current PO Anticoag Therapy: Yes Review of Systems Constitutional: Denies: Chills, Fever Eyes: Denies: Pain ENT: Denies: Head Aches Skin: Denies: Lesions Pulmonary: Reports: Dyspnea Cardiovascular: Denies: Chest Pain, Palpitations Gastrointestinal: Denies: Nausea, Vomiting Genitourinary: Denies: Dysuria, Frequency Hematologic: Denies: Bruising, Bleeding Excessively Endocrine: Denies: Polydipsia, Polyphagia Musculoskeletal: Denies: Neck Pain Neurological: Denies: Weakness Psych: Reports: Mood Normal Physical Examination General Exam: Positive: Alert, Cooperative Eye Exam: Positive: PERRLA ENT Exam: Positive: Atraumatic Neck Exam: Positive: Supple; Negative: JVD Chest Exam: Positive: Diminished; Negative: Clear to auscultation Heart Exam: Positive: Irregular Rhythm Telemetry: Positive: Atrial fibrillation Abdomen Exam: Positive: Normal bowel sounds Extremity Exam: Positive: Clubbing; Negative: Cyanosis Skin Exam: Positive: Nl turgor and temperature Neuro Exam: Positive: Strength at 5/5 X4 ext, Cranial Nerves 3-12 NL Psych Exam: Positive: Mental status NL Vital Signs Vital Signs Date Time Temp Pulse Resp B/P (MAP) Pulse Ox O2 Delivery O2 Flow Rate FiO2 03/15/19 14:22 97.8 70 18 134/81 (98) 99 Nasal Cannula 2.0 Assessment/Plan Patient 69 years old with past history of CVA, atrial fibrillation, lung cancer was directly transferred to the hospital from [facility] with increased shortness of breath secondary to pleural effusion. 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 He had multiple pleuracentesis in the past. Also patient was found to have elevated troponin level 7.6, second troponin was 8.3. Patient denied any chest pain. After discussion with the patient and wool tamper Dr. Grant, transfer to [place] for possible cardiac catheterization was declined by patient. I did not find imaging study in the file from previous hospital. Problems (1) Recurrent pleural effusion on right Status: Chronic Problem Text: Secondary to lung malignancy CT chest ordered Appreciate/agree with thoracic surgeon consult (2) Atrial fibrillation Status: Chronic Problem Text: Most likely patient will need pleurocentesis with chest tube or Pleurx placement Started Lovenox in therapeutic dose Heart rate is under control (3) Acute coronary syndrome with high troponin Status: Acute Problem Text: Patient declined to be transferred to acute cardiac facility Appreciate/agree with Dr. Grant recommendations Continue beta fredy, Plavix and aspirin on hold due to possible pleurocentesis tonight (4) Non-small cell carcinoma of right lung, stage 3 Status: Acute Problem Text: Follow-up with oncologist Plan / VTE VTE Prophylaxis Ordered?: Yes SONDRA GONSALEZ DO Mar 15, 2019 16:49
[2019-03-15 17:49] LABS: BLOOD UREA NITROGEN 14 MG/DL (7-18); CARBON DIOXIDE LEVEL 35 MEQ/L (21-32); CHLORIDE LEVEL 97 MEQ/L (98-107); CREATININE FOR GFR 0.99 MG/DL (0.70-1.30); GLOMERULAR FILTRATION RATE > 60.0 (>42); GLUCOSE, FASTING 88 MG/DL (70-100); SODIUM LEVEL 139 MEQ/L (136-145)
--- NOTE | 2019-03-15 18:11 | IPN ---
DATE: 03/15/2019 I was approached by Dr. Hernandez to assist in management on Mr. Macedo. I have known him for several years and I am familiar with his cardiac condition even though I am not totally familiar with his oncologic condition. Apparently he was transferred from [facility] earlier today where he presented for shortness of breath and was found to have elevated troponin and large right pleural effusion. Apparently there was a discussion with the family and the decision was made to transfer him to [place] for mostly palliative care. Upon arrival here, Mr. Macedo changed his mind and wanted to have all the intervention performed and consequently Dr. Hernandez was questioning whether he needs to be transferred to [place]. When I came to talk to the patient he was sitting in a PCU bed. He seemed to be reasonably comfortable even though, certainly chronically ill and appears much more cachectic compared to the time when I saw him last time several months ago. He said that he came to hospital in [place] mostly because of shortness of breath. Apparently had several coughing spells and during each time when he would be coughing he would have chest discomfort but once the coughing stopped the chest discomfort went away. Short of that he denies any other chest discomfort. We had a long discussion at bedside regarding the therapeutic options. I did explain to him that it is likely that he indeed suffered myocardial infarction and sometime in relatively recent past, possibly within 1-2 days. But I expressed my opinion that having cardiac catheterization and potentially receiving a stent would not change his ultimate prognosis which is now determined principally of his progressive lung cancer. After discussing this issue at some length the patient tells me that he is not quite certain what made him decided to rescind his recent DO NOT INTUBATE DO NOT RESUSCITATE but he understands that if he should have a cardiac arrest he would not be resuscitated if the DO NOT INTUBATE DO NOT RESUSCITATE policy is in place and he finds it acceptable. Consequently on my recommendations as I believe that it is in the best interest to treat him conservatively. He agreed to sign DO NOT INTUBATE DO NOT RESUSCITATE form again and we will plan on keeping him in [place] for conservative management. PAST MEDICAL HISTORY: I do not have access to my office records from the hospital (and I will clarify in separate note), addressing his past medical history in more details but he does have chronic ischemic cardiomyopathy with low ejection fraction, he has a history of bypass surgery, he has a history of ICD placement and he has history of chronic atrial fibrillation of many years. There is also history of peripheral vascular disease. He has been chronically anticoagulated. SOCIAL HISTORY: The patient is . He used to smoke but quit many years ago as of lately. There is minimal alcohol use. FAMILY HISTORY: No longer relevant but denies first-degree relatives of early CAD. OUTPATIENT MEDICATIONS: Tylenol as needed, amoxicillin, Zithromax, Coreg 6.25 twice a day, ceftriaxone as needed, furosemide 40 mg daily, Prilosec 20 mg daily Xarelto 20 mg daily and Crestor 20 mg daily No known allergies. On the review of systems he denies any obvious recent fever, chills, nausea, vomiting. Denies any chest discomfort other than pain during his coughing spells. He does report progressive shortness of breath. No abdominal pain. No significant edema. Rest as HPI. PHYSICAL EXAMINATION: The patient appears chronically ill, older than his calendar age and somewhat depressed. Blood pressure 134/81, heart rate has been 70s. He is afebrile. Saturation 99% on 2 liters of oxygen. Weight is 101 kg. I do not appreciate distinct JVP elevation. Lungs are relatively clear on the left from the right they are diminished breath sounds and occasional crackles. I do believe that this corresponding to his right pleural effusion. Heart: Exam reveals irregularly irregular rhythm. I do not appreciate any gallop and there is fairly unimpressive murmur best heard at the apex. Abdomen is soft without tenderness or rebound tenderness. Extremities are free of significant edema. He has fairly dense hemiparesis. LABORATORY: Hemoglobin 12.5, hematocrit 41.6, platelet count 36,000 WB count 5.1 thousand. Basic metabolic panel is normal. Liver function tests are normal and TSH was 2.1. These are from February 22. Current, blood work in our facility at this point is pending. Even though the last the last troponin from outside facility was 8. ECG reveals presence of atrial fibrillation with ventricular pacing. ASSESSMENT/PLAN: Mr. Macedo is a 69-year old unfortunate gentleman who has progressive lung cancer that is currently treated with Keytruda. He is status post radiation chemotherapy and past. He now has large right-sided pleural effusion, I suspect most likely malignant. He also has known ischemic cardiomyopathy with severe LV dysfunction, chronic ICD, chronic atrial fibrillation and history of stroke with dense hemiparesis almost hemiplegia. At this point I think the focus should be on comfort rather than survival. He does not give me any symptoms indicative of acute coronary syndrome and his ECG is nondiagnostic but in any case I do not believe that potential intervention would improve quality of life in any significant way. I do propose that we treat him conservatively with administration of aspirin, Plavix and anticoagulation. Because he will likely need the drainage of his right pleural effusion I would hold Plavix until the decision is made as to what form of drainage will be performed. I would replace Xarelto by Lovenox and therapeutic dose. His rate is well-controlled on carvedilol and I would continue the same. I spoke about this plan with Dr. Hernandez and I will also address this with his on a second occasion. We already had a discussion earlier today and the plan was consistent with his and her wishes. NOBLE
[2019-03-15 19:05] VITALS: BP 145/87
--- NOTE | 2019-03-15 19:12 | REP ---
Clinical: Follow up pleural effusion. Technique: PA and lateral. Comparison: 12/10/2018. Findings: Pleuroparenchymal changes involving the right hemithorax including moderate left pleural effusion and scattered scarring are essentially unchanged. New diffuse ill-defined areas of airspace disease noted throughout the left hemithorax. No obvious left effusion or pneumothorax. Mediastinum and cardiac silhouette are stable with mediastinal adenopathy/mass suspected. Impression: 1. Moderate right pleural effusion and right pleuroparenchymal changes remain essentially stable. 2. Diffuse new areas of opacity involving the left hemithorax. 3. Mediastinal opacities similar to prior examination likely representing elements of mass / adenopathy. Electronically Signed by Abiodun Hendricks MD 03/15/2019 07:03 P
--- NOTE | 2019-03-15 19:22 | REPVR ---
PROCEDURE INFORMATION: Exam: CT Chest With Contrast Exam date and time: 03/15/2019 6:39 PM Age: 69 years old Clinical indication: Shortness of breath; Additional info: Shortness of breath pleural effusion TECHNIQUE: Imaging protocol: Computed tomography of the chest with intravenous contrast. 3D rendering: MIP and/or 3D reconstructed images were created by the technologist. Radiation optimization: All CT scans at this facility use at least one of these dose optimization techniques: automated exposure control; mA and/or kV adjustment per patient size (includes targeted exams where dose is matched to clinical indication); or iterative reconstruction. Contrast material: ISOVUE 370; Contrast volume: 75 ml; Contrast route: IV; COMPARISON: CT CHEST W/ CONTRAST - OUTSIDE PRIOR 07/11/2017 1:28 PM FINDINGS: Lungs: Right upper lobe mass measuring 7.9 x 5.8 x 6.8 cm has migrated medially in association with atelectasis of the right upper lobe. Multiple ground-glass and semi solid opacities throughout the left lung most pronounced in the left upper lobe. Pleural space: Large right pleural effusion. Left pleural cavity unremarkable. Heart: Cardiomegaly.There is severe atherosclerotic calcification of the coronary arteries. Aorta: The aorta demonstrates mild atherosclerotic calcification. Lymph nodes: Confluent right hilar lymphadenopathy likely malignant. Small mediastinal lymph nodes demonstrated as well. Bones/joints: The spine demonstrates mild degenerative changes. Status post sternotomy. Soft tissues: Unremarkable. IMPRESSION: 1. Right upper lobe mass measuring 7.9 x 5.8 x 6.8 cm has migrated medially in association with atelectasis of the right upper lobe. Also noted is bulky confluent right hilar lymphadenopathy likely malignant. 2. Multiple ground-glass and semi solid opacities throughout the left lung most pronounced in the left upper lobe. 3. Cardiomegaly and severe coronary artery disease. 4. Large right pleural effusion. Electronically signed by: Eric Carrillo On 03/15/2019 19:22:16 PM
[2019-03-15] MEDS: ROSUVASTATIN 10 MG TAB (CRESTOR) PO SCH (20:18)
[2019-03-15] MEDS: ENOXAPARIN 150 MG/ML SYR (J1650) SC SCH (20:18)
[2019-03-15] MEDS: CARVedilol 6.25 MG TAB PO SCH (20:18)
[2019-03-15 22:00] VITALS: BP 118/72
[2019-03-16] VITALS (15 sets, daily range): BP systolic 103–140; BP diastolic 61–91; O2SAT 93–95
[2019-03-16 03:34] LABS: HEMATOCRIT 40.4 % (42.0-52.0); HEMOGLOBIN 12.2 g/dl (13.5-17.5); MEAN CORPUSCULAR HEMOGLOBIN 26.8 pg (27.0-33.0); MEAN CORPUSCULAR HGB CONC 30.2 g/dl (32.0-36.5); MEAN CORPUSCULAR VOLUME 88.8 fl (80.0-96.0); PLATELET COUNT, AUTOMATED 148 10^3/uL (150-450); RED BLOOD COUNT 4.55 10^6/uL (4.30-6.10); WHITE BLOOD COUNT 7.8 10^3/uL (4.0-10.0)
[2019-03-16 04:01] LABS: BLOOD UREA NITROGEN 14 MG/DL (7-18); CALCIUM LEVEL 8.3 MG/DL (8.8-10.2); CARBON DIOXIDE LEVEL 36 MEQ/L (21-32); CHLORIDE LEVEL 96 MEQ/L (98-107); CREATININE FOR GFR 0.93 MG/DL (0.70-1.30); GLOMERULAR FILTRATION RATE > 60.0 (>42); GLUCOSE, FASTING 94 MG/DL (70-100); POTASSIUM SERUM 3.8 MEQ/L (3.5-5.1); SODIUM LEVEL 140 MEQ/L (136-145)
[2019-03-16] MEDS: FUROSEMIDE 40 MG TAB PO SCH (09:57)
[2019-03-16] MEDS: OMEPRAZOLE 20 MG CAP PO SCH (09:57)
[2019-03-16] MEDS: CARVedilol 6.25 MG TAB PO SCH ×2 (09:59→20:53)
[2019-03-16 10:03] LABS: TROPONIN I 11.7 NG/ML (< 0.10)
[2019-03-16] MEDS ORDERED: LIDOCAINE 1% MDV 20ML VIAL As Ordered ONE (11:13)
[2019-03-16] MEDS ORDERED: LIDOCAINE 1% MDV 20ML VIAL SC ONE (11:15)
--- NOTE | 2019-03-16 12:04 | IPNPDOC ---
Text Note Date of Service The patient was seen on 03/16/19. NOTE Subjective: Patient continues to have moderate shortness of breath with cough. Patient denied any chest pain or palpitations. No any acute events overnight Objective: VITAL SIGNS: Please see below. GENERAL APPEARANCE: Well-nourished, well-developed, not in apparent distress HEENT: Normocephalic, atraumatic. Mucous members moist and pink CARDIOVASCULAR: Regular rate and rhythm. Pacemaker in place. Radial pulses are intact. There is no lower extremity edema LUNGS: Diminished lung sounds ABDOMEN: Abdomen is soft and nontender. MUSCULOSKELETAL: Range of motion is intact in all 4 extremities NEUROLOGICAL: Left hemiparesis. Speech is not dysarthric, no nuchal rigidity Assessment/Plan Patient 69 years old with past history of CVA, atrial fibrillation, lung cancer was directly transferred to the hospital from [facility] with increased shortness of breath secondary to the right pleural effusion. 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 He had multiple pleuracentesis in the past. Also patient was found to have elevated troponin level 7.6, second troponin was 8.3. Patient denied any chest pain. After discussion with the patient and loading inspector Dr. Grant, transfer to [place] for possible cardiac catheterization was declined by patient. 1) Recurrent pleural effusion on right Secondary to lung malignancy CT chest showed significant right pleural effusion Dr. Hernandez will place chest tube today (2) Atrial fibrillation Oral targeted anticoagulation on hold due to chest tube placement Continue with Lovenox in therapeutic dose Heart rate is under control (3) Acute coronary syndrome with high troponin Patient declined to be transferred to acute cardiac facility Dr. Grant follows him Continue beta fredy, Plavix and aspirin on hold due to pleurocentesis (4) Non-small cell carcinoma of right lung, stage 3 Follow-up with oncologist Mert LEMONS I+O Mert LEMONS I+O Laboratory Tests 03/15/19 17:06 03/16/19 03:13 Vital Signs Date Time Temp Pulse Resp B/P (MAP) Pulse Ox O2 Delivery O2 Flow Rate FiO2 03/16/19 09:59 76 120/64 03/16/19 08:00 97.6 16 93 Room Air 03/16/19 04:00 1.0 I&O- Last 24 Hours up to 6 AM 03/16/19 05:59 Intake Total 540 ml Output Total 1100 ml Balance -560 ml SONDRA GONSALEZ DO Mar 16, 2019 12:04
--- NOTE | 2019-03-16 12:07 | REP ---
Rule ingesting). Technique: Portable AP and cross-table lateral views. Comparison: 03/15/2019. Findings: Pigtail catheter at the right chest base is now identified and small visualized moderate right pleural effusion noted. Pneumothorax cannot be excluded. Mediastinum and cardiac silhouette are stable. Subtle air space disease involving the left hemithorax cannot be excluded. Impression: Pigtail catheter at the right lung base with moderate right pleural effusion. Electronically Signed by Abiodun Hendricks MD 03/16/2019 11:57 A
--- NOTE | 2019-03-16 12:27 | RO ---
DATE OF PROCEDURE: 03/16/2019 PREPROCEDURE DIAGNOSIS: Right pleural effusion, shortness of breath. POSTPROCEDURE DIAGNOSIS: Right pleural effusion, shortness of breath. PROCEDURE: Insertion of chest tube catheter under local anesthesia. SURGEON: Carlos Hernandez MD SALES EXPERT: ANESTHESIA: DESCRIPTION OF PROCEDURE: The patient's posterior right chest was prepped and draped in the usual sterile fashion. 1% lidocaine was used to infiltrate the skin, subcutaneous tissue and pleura at approximately the 9th intercostal space. Explorer needle showed him to have cabrera fluid. Incision was made, and the muscle and subcutaneous tissue was spread with a hemostat. A pigtail catheter was then inserted without difficulty and activated. The patient drained 1200 mL from the catheter with it still coming out at the end of the procedure. Specimens were sent for the requisite cytologies, hematologies, chemistries and bacteriologies. The patient tolerated the procedure well. A chest x-ray is pending.
[2019-03-16 12:36] LABS: PH BODY FLUID < 6.500 UNITS (NOT ESTABLISHED); SOURCE, BODY FLUID pH PLEURAL
[2019-03-16 12:44] LABS: SOURCE, BODY FLUID PLEURAL
[2019-03-16 12:45] LABS: APPEARANCE, BODY FLUID HAZY (CLEAR); PLEURAL FL COLOR YELLOW (COLORLESS)
[2019-03-16 13:18] LABS: AMYLASE, BODY FLUID 26 U/L (NOT ESTABLISHED); CHOLESTEROL, BODY FLUID < 50 MG/DL (NOT ESTABLISHED); LDH, BODY FLUID 113 U/L (NOT ESTABLISHED); SOURCE, BODY FLUID ALBUMIN PLEURAL; SOURCE, BODY FLUID AMYLASE PLEURAL; SOURCE, BODY FLUID CHOL PLEURAL; SOURCE, BODY FLUID GLUCOSE PLEURAL; SOURCE, BODY FLUID LDH PLEURAL; SOURCE, BODY FLUID TOT PROTEIN PLEURAL; SOURCE, BODY FLUID TRIG PLEURAL; TOTAL PROTEIN, BODY FLUID 4.3 G/DL (NOT ESTABLISHED); TRIGLYCERIDE, BODY FLUID 17 MG/DL (NOT ESTABLISHED)
--- NOTE | 2019-03-16 17:43 | CR ---
DATE OF CONSULTATION: 03/16/2019 REASON FOR CONSULTATION: The patient is seen at the request of Dr. Montes De Oca for shortness of breath and pleural effusion. HISTORY OF PRESENT ILLNESS: The patient is a 76-year-old white male with a past history of stage III B poorly differentiated carcinoma, non-small cell and not further characterized. He also is status post CVA and atrial fibrillation on Xarelto. He has had a number of thoracenteses in the past with the last one being in October 2018, performed at this hospital. He tells me that over the last week he is becoming more and more short of breath and has to sleep on pillows and raise the head of his bed. He was seen at [facility] and transferred here. He was first considered for transfer to [place] for cardiac intervention, as his troponin level was 7.6, rising to 8.3. At first he did not want aggressive therapy and then changed his mind and then once again changed his mind after speaking with Dr. Grant. He now has a large pleural effusion seen on CT scan. PAST MEDICAL HISTORY: As above. PAST SURGICAL HISTORY: Status post coronary artery bypass graft (CABG) and femoral endarterectomy for peripheral vascular disease. He has an AICD. HABITS: Former smoker but not now. Without alcohol. Without illicit drugs. MEDICATIONS: At home: - amoxicillin 500 mg 2 grams prior to a dental procedure - azithromycin 500 mg at [facility] - carvedilol 6.5 mg by mouth twice a day - ceftriaxone at [facility] - Lasix 40 mg daily - omeprazole 20 mg daily - Xarelto 20 mg at night - rosuvastatin 20 mg at night PHYSICAL EXAMINATION: Well developed, well nourished, white male, paralytic on the right side, able to answer questions, although haltingly. VITAL SIGNS: Temperature 98.8 with a heart rate of 70, respiratory rate of 20 without the use of accessory muscles, who is 93% saturated on room air, blood pressure 140/79. EYES: Pupils are equal, round and reactive to light. Extraocular muscles intact. Sclerae nonicteric. MOUTH: Mucous membranes are pink and moist. Lips and commissures without lesions. There is no thrush. NECK: Supple. There is no jugular venous distention (JVD). No subcutaneous emphysema. Trachea is midline. HEAD: Normocephalic. LUNGS: Decreased breath sounds on the right side with a dull percussion note on the right side. Left side shows inspiratory rales towards the end of inspiration. These do not clear with coughing. ABDOMEN: Soft, nontender. Bowel sounds positive. There is no costovertebral angle tenderness. EXTREMITIES: 3 to 4+ pretibial edema on the right and none on the left. There is no calf tenderness. SKIN: Warm, dry and perfused without cyanosis or mottling, including that of the nailbeds and knees. NEUROLOGIC: He is paralytic in the upper and lower extremities on the right. PSYCHIATRIC: He is awake and alert with halting speech. LABORATORY DATA: White count is 7.8 with hemoglobin and hematocrit of 12.2 and 40.4, platelet count of 148. Electrolytes show increased total CO2 of 36 with a creatinine of 0.93 and a glucose of 8.3. Troponin is now up to 11.7, having achieved maximum of 12.3. His chest CT shows a right pleural effusion. He has an infiltrative process in the left upper lobe. His CT in 2018 did not show the infiltrative process in the left upper lobe. He has also the same process peripherally in the lower lobe on the left side. There is compression on the right side of underlying lung. His chest CT in 2018 showed a 6 cm mass in the upper lobe. He had mediastinal lymphadenopathy at that point in time. IMPRESSION: 1. Status post acute myocardial infarction. 2. Right pleural effusion, chronic and recurrent. 3. Status post CVA. 4. Peripheral vascular disease. 5. Hypertension. 6. Atrial fibrillation. 7. Status post implantable defibrillator. 8. Shortness of breath secondary to the pleural effusion. 9. Stage III B non-small cell poorly differentiated carcinoma, treated with radiation and chemotherapy. 10. Coronary artery disease, status post coronary artery bypass grafting. PLAN/DISCUSSION: As this is recurrent, ideally, I would place a PleurX catheter. This may be due to recurrent carcinoma or radiation serositis. It could also be due to heart failure, although I do not have any evidence for that. Dr. Grant mentions in his consultation that he does have an ischemic cardiomyopathy with a low ejection fraction so this can very well be secondary to heart failure. As noted above, I would normally place a PleurX catheter, however, seeing that he has had an acute myocardial infarction, I do not want to sedate him. I will therefore place a pigtail catheter under local anesthesia and drain him in that fashion. We will keep the pigtail catheter in for 24 to 48 hours for complete drainage. At that point in time, we will remove the catheter and continue to watch him as an outpatient. If the fluid reaccumulates, in about 6 weeks I would consider doing a PleurX catheter under conscious sedation with Versed.
[2019-03-16] MEDS: ACETAMINOPHEN TAB 650MG DOSE (2X325MG) PO PRN (18:15)
[2019-03-16] MEDS: ENOXAPARIN 150 MG/ML SYR (J1650) SC SCH (18:16)
[2019-03-16] MEDS: ROSUVASTATIN 10 MG TAB (CRESTOR) PO SCH (20:54)
[2019-03-17] VITALS (25 sets, daily range): BP systolic 93–148; BP diastolic 50–82; O2SAT 94–97
[2019-03-17 05:37] LABS: BASO % 0.5 % (0.0-1.0); EOS # 0.1 10^3/uL (0.0-0.5); EOS % 0.7 % (0.0-3.0); HEMATOCRIT 39.4 % (42.0-52.0); HEMOGLOBIN 11.7 g/dl (13.5-17.5); LYMPH # 0.3 10^3/uL (1.5-5.0); LYMPH % 4.4 % (24.0-44.0); MEAN CORPUSCULAR HEMOGLOBIN 26.7 pg (27.0-33.0); MEAN CORPUSCULAR HGB CONC 29.7 g/dl (32.0-36.5); MONO # 0.6 10^3/uL (0.0-0.8); MONO % 7.8 % (0.0-5.0); NEUTROPHILS # 6.3 10^3/uL (1.5-8.5); NEUTROPHILS % 86.2 % (36.0-66.0); PLATELET COUNT, AUTOMATED 149 10^3/uL (150-450); RED BLOOD COUNT 4.38 10^6/uL (4.30-6.10); WHITE BLOOD COUNT 7.3 10^3/uL (4.0-10.0)
[2019-03-17 05:58] LABS: BLOOD UREA NITROGEN 15 MG/DL (7-18); CALCIUM LEVEL 8.7 MG/DL (8.8-10.2); CARBON DIOXIDE LEVEL 37 MEQ/L (21-32); CHLORIDE LEVEL 96 MEQ/L (98-107); CREATININE FOR GFR 0.72 MG/DL (0.70-1.30); GLOMERULAR FILTRATION RATE > 60.0 (>42); GLUCOSE, FASTING 98 MG/DL (70-100); POTASSIUM SERUM 3.4 MEQ/L (3.5-5.1); SODIUM LEVEL 140 MEQ/L (136-145)
[2019-03-17] MEDS ORDERED: POTASSIUM CHLORIDE 10 MEQ SR TABLET PO ONE (08:45)
[2019-03-17 08:50] LABS: TOTAL PROTEIN 6.2 GM/DL (6.4-8.2)
--- NOTE | 2019-03-17 08:58 | REP ---
Clinical: Status post chest tube placement. Technique: AP and cross-table lateral views of the chest. Comparison: 03/16/2019. Findings: Pigtail catheter at the right base is stable position. Right pleural effusion appears mildly decreased from prior examination and improved aeration to the right hemithorax is noted. Hilar mass along with left-sided opacities are essentially unchanged. Impression: 1. Improved aeration to the right hemithorax with mildly decreased pleural effusion. 2. Mediastinal/hilar mass and left sided infiltrates remain stable . Electronically Signed by Abiodun Hendricks MD 03/17/2019 08:50 A
[2019-03-17] MEDS: OMEPRAZOLE 20 MG CAP PO SCH (10:03)
[2019-03-17] MEDS: FUROSEMIDE 40 MG TAB PO SCH (10:03)
[2019-03-17] MEDS: CARVedilol 6.25 MG TAB PO SCH ×2 (10:04→21:42)
[2019-03-17] MEDS: SODIUM CHLORIDE 0.9% INJ 10 ML SYR IV SCH (10:06)
--- NOTE | 2019-03-17 13:14 | IPN ---
DATE: 03/17/2019 Mr. Macedo has drained over 2700 mL after having his pigtail catheter placed. His chest x-ray has now cleared. He is breathing a whole lot better. His vital signs show a maximum temperature (T max) of 98.5 with a heart rate that ranges between 70 and 71, with a blood pressure that is ranging between 102/62 to 133/64 who is 94 to 97% saturated on one liter nasal cannula. Respiratory rate is 18 to 20 without the use of accessory muscles. His intake and output over the past 24 hours has been recorded as 800 in and 3712 out for a negativity of 2912 mL and including 2712 mL out the chest tube. His weight is 99.3 kg today compared to 101 kg yesterday. On physical examination, he has bibasilar rales and rhonchi. These do not clear with coughing. Percussion note is full to the diaphragm. Cardiac exam is without murmurs, clicks, gallops or rubs. I cannot feel his point of maximum impulse (PMI). S1, S2 are normal. Abdomen is soft and nontender. Bowel sounds are positive. There is no hepatomegaly. No costovertebral angle tenderness. Extremities show no pretibial edema. No calf tenderness. No differential swelling of the upper extremities. He does have some ankle edema on the left side, but it is much improved over yesterday. Skin is warm, dry and perfused without cyanosis or mottling, including that of the nail beds and the knees. Neck is supple. There is no jugular venous distention, no subcutaneous emphysema. Trachea is midline. Mouth shows his mucous membranes to be pink and moist. Lips and commissures without lesions. There is no thrush. Eyes show his pupils to be equal and reactive. Extraocular motions intact. Sclerae anicteric. Neurologic shows II-XII intact along with gross motor and gross sensation intact. Gait is not tested. Psychiatric shows him to be awake and alert, oriented times three with appropriate mood and affect and conversational. His white count today is 7.3 with a hemoglobin and hematocrit of 11.7 and 39.4, unchanged from yesterday, with a platelet count of 149. Differential shows 86% neutrophils, 4% lymphocytes, 7% monocytes. There are no immature forms. No toxic granulations. His electrolytes are normal with a marginally low potassium of 3.4 and a BUN and creatinine of 15 and 0.72. His pleural fluid has been returned with a pH of less than 6.5, however, with a glucose of 96 and LDH of 113 with a corresponding LDH of 481. Total protein is 4.3 with a corresponding total protein of 6.2. He has 175 white cells, 90% of which are mononuclear lymphocytes and 9% are PMNs. This looks to be a transudative effusion, certainly by LDH standards. I cannot really quite explain the very low fluid pH. But it does not look infected. I suspect it is going to be malignant and final pathology is pending. No organisms were seen on the gram stain. His chest x-ray today shows the right lung fully expanded to the chest wall. Costophrenic angle is sharp. He does have what looks to be a left-sided atelectatic or infiltrative pattern whereas his right side is clear. CT of his chest yesterday did show an infiltrative pattern on the left side, perhaps secondary to radiation changes. IMPRESSION: 1. Status post acute myocardial infarction. 2. Congestive heart failure with low systolic ejection fraction. 3. Right pleural effusion, chronic and recurrent. 4. Status post CVA. 5. Peripheral vascular disease. 6. Hypertension. 7. Atrial fibrillation. 8. Status post implantable defibrillator. 9. Shortness of breath secondary to pleural effusion, resolved. 10. 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 11. Coronary artery disease, status post coronary artery bypass grafting. PLAN AND DISCUSSION: His pleural fluid is recurrent, but I did not place a PleurX catheter because of his acute myocardial infarction. I will remove his pigtail catheter today. I will see him back in the office in 3 weeks with a chest x-ray, but I will not do anything that requires sedation for approximately 6 weeks if he does need a PleurX catheter. The matter of his discharge I will leave to the medical service. NOBLE
[2019-03-17] MEDS: ACETAMINOPHEN TAB 650MG DOSE (2X325MG) PO PRN (13:16)
--- NOTE | 2019-03-17 13:19 | IPNPDOC ---
Text Note Date of Service The patient was seen on 03/17/19. NOTE ubjective: Patient continues to have mild shortness of breath with cough. Sofi ent denied any chest pain or palpitations. No any acute events overnight Objective: VITAL SIGNS: Please see below. GENERAL APPEARANCE: Well-nourished, well-developed, not in apparent distress HEENT: Normocephalic, atraumatic. Mucous members moist and pink CARDIOVASCULAR: Regular rate and rhythm. Pacemaker in place. Radial pulses are intact. There is no lower extremity edema LUNGS: Diminished lung sounds ABDOMEN: Abdomen is soft and nontender. MUSCULOSKELETAL: Range of motion is intact in all 4 extremities NEUROLOGICAL: Left hemiparesis. Speech is not dysarthric, no nuchal rigidity Assessment/Plan Patient 69 years old with past history of CVA, atrial fibrillation, lung cancer was directly transferred to the hospital from [facility] with increased shortness of breath secondary to the right pleural effusion. 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 He had multiple pleuracentesis in the past. Also patient was found to have elevated troponin level 7.6, second troponin was 8.3. Patient denied any chest pain. After discussion with the patient and cosmetics and toiletries salesperson Dr. Grant, transfer to [place] for possible cardiac catheterization was declined by patient. Patient received conservative treatment for [place]. Dr. Hernandez drained the pleural fluid via chest tube. On 03/17/19 Dr. Hernandez removed chest tube. Await PT/OT clearance 1) Recurrent pleural effusion on right Secondary to lung malignancy Dr. Hernandez drained the pleural fluid via chest tube. On 03/17/19 Dr. Hernandez removed chest tube (2) Atrial fibrillation I restarted oral targeted anticoagulation Heart rate is under control (3) Acute coronary syndrome with high troponin Patient declined to be transferred to acute cardiac facility for stent placement Dr. Grant follows him Continue beta fredy, I restarted aspirin, I added lisinopril to his regimen We'll discuss with Dr. Grant Plavix indication due to increased risk of bleeding secondary to dual antiplatelet therapy and rivaroxaban (4) Non-small cell carcinoma of right lung, stage 3 Follow-up with oncologist Mert LEMONS, I+O Mert LEMONS, I+O Laboratory Tests 03/17/19 05:15 Vital Signs Date Time Temp Pulse Resp B/P (MAP) Pulse Ox O2 Delivery O2 Flow Rate FiO2 03/17/19 13:08 94 Nasal Cannula 1.0 03/17/19 12:00 97.3 86 20 148/82 (104) I&O- Last 24 Hours up to 6 AM 03/17/19 06:00 Intake Total 770 ml Output Total 3905 ml Balance -3135 ml SONDRA GONSALEZ DO Mar 17, 2019 13:19
[2019-03-17] MEDS: lisinopriL 10 MG TAB PO SCH (15:55)
[2019-03-17] MEDS: RIVAROXABAN 20 MG TAB (XARELTO) PO SCH (18:17)
[2019-03-17] MEDS: ROSUVASTATIN 10 MG TAB (CRESTOR) PO SCH (21:43)
[2019-03-18] VITALS (23 sets, daily range): BP systolic 92–118; BP diastolic 53–68; O2SAT 89–98
[2019-03-18 05:09] LABS: HEMATOCRIT 36.6 % (42.0-52.0); HEMOGLOBIN 11.1 g/dl (13.5-17.5); MEAN CORPUSCULAR HGB CONC 30.3 g/dl (32.0-36.5); MEAN CORPUSCULAR VOLUME 89.1 fl (80.0-96.0); PLATELET COUNT, AUTOMATED 158 10^3/uL (150-450); RED BLOOD COUNT 4.11 10^6/uL (4.30-6.10); WHITE BLOOD COUNT 6.5 10^3/uL (4.0-10.0)
[2019-03-18 06:32] LABS: BLOOD UREA NITROGEN 19 MG/DL (7-18); CARBON DIOXIDE LEVEL 37 MEQ/L (21-32); CHLORIDE LEVEL 97 MEQ/L (98-107); GLOMERULAR FILTRATION RATE > 60.0 (>42); GLUCOSE, FASTING 94 MG/DL (70-100); POTASSIUM SERUM 3.7 MEQ/L (3.5-5.1); SODIUM LEVEL 139 MEQ/L (136-145)
[2019-03-18 06:35] LABS: BASO % 0.6 % (0.0-1.0); EOS # 0.2 10^3/uL (0.0-0.5); EOS % 2.3 % (0.0-3.0); LYMPH # 0.4 10^3/uL (1.5-5.0); LYMPH % 6.2 % (24.0-44.0); MONO # 0.5 10^3/uL (0.0-0.8); MONO % 7.4 % (0.0-5.0); NEUTROPHILS # 5.4 10^3/uL (1.5-8.5); NEUTROPHILS % 83.2 % (36.0-66.0)
--- NOTE | 2019-03-18 08:27 | REP ---
Clinical: Right pleural effusion. Technique: PA and lateral. Comparison: 03/17/2019. Findings: Mediastinum and cardiac silhouette along with known underlying areas of mass / adenopathy , scattered consolidations and right pleural effusion appear relatively unchanged. No obvious new acute process. Impression: No significant change from prior examination. Electronically Signed by Abiodun Hendricks MD 03/18/2019 08:19 A
[2019-03-18] MEDS: SODIUM CHLORIDE 0.9% INJ 10 ML SYR IV SCH (09:00)
[2019-03-18] MEDS: CARVedilol 6.25 MG TAB PO SCH ×2 (09:00→20:17)
[2019-03-18] MEDS: lisinopriL 10 MG TAB PO SCH (09:00)
--- NOTE | 2019-03-18 09:17 | IPN ---
DATE: 03/18/2019 Mr. Macedo had an uneventful weekend. He had his right pleural effusion drained by Dr. Hernandez and felt better even though this morning he tells me that he had a does not think that symptomatically it made a big difference. He denies any chest discomfort has not been coughing very much. Vital signs this morning blood pressure 96/58, heart rate has been in 70s. His atrial fibrillation with biventricular pacing. He is afebrile. Saturation is 94% on room air 1 liter. Fluid balance yesterday was recorded approximately equal. Weight is recorded this morning 110 which certainly he had lastly different than yesterday and almost certainly inaccurate. He is alert and oriented appropriate. I do not appreciate any distinct JVP elevation. There are still diminished breath sounds over right base but by physical exam is much better compared to Monday. Left lung is clear. Heart: Exam reveals somewhat muffled heart sounds. I do not appreciate any gallop, rub or murmur. Abdomen is soft. He has trace edema on his left lower extremity and he does have no edema on right lower extremity. Neurologically he is still has his dense hemiparesis which has not changed. LABORATORY: Hemoglobin 11.1, hematocrit 36, platelet count 158,000 and basic metabolic panel is essentially normal. ASSESSMENT/PLAN: Mr. Macedo is a 69-year-old man who has numerous medical problems that include chronic atrial fibrillation, ischemic cardiomyopathy with biventricular defibrillator, chronic atrial fibrillation, stage IIIB lung cancer who has been undergoing chemotherapy. He presented with right pleural effusion and [id number] myocardial infarction. He did not have any symptoms other than chest pain associated with coughing only. We decided for conservative management. He has been on aspirin and rivaroxaban. I do believe that we should continue the same management. His heart rate is well-controlled. Unfortunately his low blood pressure probably would not allow introduction of additional medications for heart failure. He is not on any vasodilator therapy other than carvedilol. He is also on high-dose statin. As far as the etiology pleural effusion is concerned, it is still unclear. The fluid analysis is not convincingly transudative and exudative. His LDH points more towards transudate but his total protein towards exudate. The cytology is still pending from my perspective I do not have objections that the patient gets discharged home. I will tentative plan tentatively see him in followup in a week or two. Unfortunately I think his overall prognosis certainly poor and same applies for quality of life. I do not have much else to help him with to improve his unfortunately.
[2019-03-18] MEDS: ASPIRIN 81 MG ENTERIC TAB PO SCH (09:37)
[2019-03-18] MEDS: OMEPRAZOLE 20 MG CAP PO SCH (09:37)
[2019-03-18] MEDS: FUROSEMIDE 40 MG TAB PO SCH (09:38)
--- NOTE | 2019-03-18 13:44 | IPNPDOC ---
Text Note Date of Service The patient was seen on 03/18/19. NOTE Subjective: Patient continues to have mild shortness of breath with cough how ever laying downing flat not needing any oxygen. Patient denied any chest pain or palpitations. No any acute events overnight Objective: VITAL SIGNS: Please see below. GENERAL APPEARANCE: Well-nourished, well-developed, not in apparent distress HEENT: Normocephalic, atraumatic. Mucous members moist and pink, Facial deviation to right. CARDIOVASCULAR: Regular rate and rhythm. Pacemaker in place. Radial pulses are intact LUNGS: Bilateral coarse breath sounds to some wheezing and added ronchorous sounds. ABDOMEN: Abdomen is soft and nontender. Bowel sounds normal. MUSCULOSKELETAL: Range of motion is intact in all 4 extremities NEUROLOGICAL: Left hemiparesis. Left upper extremity 1/5 power, lower extremity3/5 power. Speech is not dysarthric, no nuchal rigidity EXTREMITIES: trace bilateral pitting edema Left > right. Chronic venous stasis dermatitis. Labs and radiology: reviewed. Assessment/Plan: Patient 69 years old with past history of CVA, atrial fibrillation, lung cancer was directly transferred to the hospital from [facility] with increased shortness of breath secondary to the right pleural effusion. 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 He had multiple pleuracentesis in the past. Also patient was found to have elevated troponin level 7.6, second troponin was 8.3. Patient denied any chest pain. After discussion with the patient and viscosity worker Dr. Grant, transfer to [place] for possible cardiac catheterization was declined by patient. Patient received conservative treatment for [place]. Dr. Hernandez drained the pleural fluid via chest tube. On 03/17/19 Dr. Hernandez removed chest tube. Await PT/OT clearance Recurrent pleural effusion on right borderline neither transudative nor exudative. due to lung malignancy vs CHF Dr. Hernandez drained the pleural fluid via pig tail cath. On 03/17/19 Dr. Hernandez removed chest drain. Chronic Atrial fibrillation Heart rate is under control betablocker, xarelto. AICD in place Acute NSTEMI Patient declined to be transferred to acute cardiac facility for interventional cardiology Dr. 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 Follow-up with oncologist SYEDAA in 2018 with residual left hemiparesis PT and OT. Coronary artery disease, status post coronary artery bypass grafting. continue asa, xarelto, betablocker, statin. Ischemic cardiomyopathy with Systolic Congestive heart failure with low ejection fraction. Has AICD in place. lisinopril, lasix Peripheral vascular disease. asa, statin Hypertension. lisinopril, coreg, lasix VS,Fishbone, I+O VS, Fishbone, I+O Laboratory Tests 03/18/19 04:47 03/18/19 06:10 Vital Signs Date Time Temp Pulse Resp B/P (MAP) Pulse Ox O2 Delivery O2 Flow Rate FiO2 03/18/19 09:00 96/58 03/18/19 08:08 1.0 03/18/19 08:00 97.2 70 17 94 Room Air I&O- Last 24 Hours up to 6 AM 03/18/19 06:00 Intake Total 1140 ml Output Total 990 ml Balance 150 ml BROOKE ROBLERO MD Mar 18, 2019 13:17
[2019-03-18] MEDS: RIVAROXABAN 20 MG TAB (XARELTO) PO SCH (18:12)
[2019-03-18] MEDS: ROSUVASTATIN 10 MG TAB (CRESTOR) PO SCH (20:16)
[2019-03-19] VITALS (11 sets, daily range): BP systolic 102–116; BP diastolic 62–71; O2SAT 87–92
[2019-03-19 06:33] LABS: BASO % 0.7 % (0.0-1.0); EOS # 0.2 10^3/uL (0.0-0.5); EOS % 3.8 % (0.0-3.0); HEMATOCRIT 40.6 % (42.0-52.0); HEMOGLOBIN 12.2 g/dl (13.5-17.5); LYMPH # 0.4 10^3/uL (1.5-5.0); LYMPH % 6.5 % (24.0-44.0); MEAN CORPUSCULAR HEMOGLOBIN 26.7 pg (27.0-33.0); MEAN CORPUSCULAR VOLUME 88.8 fl (80.0-96.0); MONO # 0.5 10^3/uL (0.0-0.8); NEUTROPHILS # 4.8 10^3/uL (1.5-8.5); NEUTROPHILS % 79.7 % (36.0-66.0); PLATELET COUNT, AUTOMATED 176 10^3/uL (150-450); RED BLOOD COUNT 4.57 10^6/uL (4.30-6.10)
[2019-03-19 06:50] LABS: BLOOD UREA NITROGEN 18 MG/DL (7-18); CALCIUM LEVEL 8.7 MG/DL (8.8-10.2); CARBON DIOXIDE LEVEL 33 MEQ/L (21-32); CHLORIDE LEVEL 98 MEQ/L (98-107); CREATININE FOR GFR 0.77 MG/DL (0.70-1.30); GLOMERULAR FILTRATION RATE > 60.0 (>42); GLUCOSE, FASTING 99 MG/DL (70-100); POTASSIUM SERUM 3.6 MEQ/L (3.5-5.1); SODIUM LEVEL 139 MEQ/L (136-145)
--- NOTE | 2019-03-19 08:32 | IPN ---
DATE: 03/19/2019 Mr. Macedo is not feeling any better today. He is comfortable at rest, but he tells me that with ambulation he immediately has a sensation that he needs to cough and the cough remains painful and is associated with dyspnea. He does not have any kiley anginal symptoms as such. Otherwise, his vital signs have been stable. Blood pressure 116/70. Heart rate has been in 70s, is invariably ventricular paced with underlying atrial fibrillation. He is afebrile. Saturation is from high 80s to low 90s on room air. Fluid balance yesterday was recorded slightly positive. Weight is essentially unchanged, 110.6 kg. He is alert and oriented and appropriate. His jugular venous pulse (JVP) does not look high. Lungs are reasonably clear on the right. I do not appreciate any wheezing, crackles or rhonchi, and I do not appreciate any diminished breath sounds over right base. The upper lobe I really do not appreciate much of air movement though. The left is relatively clear. Heart exam reveals regular rhythm. I do not appreciate any gallop. I do not appreciate distinct murmur either. Abdomen is soft, nontender. He does not have any peripheral edema. He has dense left-sided hemiparesis worse on left upper extremity. LABORATORIES: Hemoglobin is 12.2, hematocrit 40.6, platelet count 176,000, and basic metabolic panel is normal. ASSESSMENT AND PLAN: Mr. Macedo is a 69--year-old man who has [id number] lung cancer that has been treated with Keytruda for about a year and a half or so. It apparently has been stable even though this is the second time he presented with fairly large right pleural effusion. It was completely drained by Dr. Hernandez. The analysis of the fluid is borderline between exudate and transudate. Cytology is still pending. The CT scan on admission revealed a very large left upper lobe mass with significant hilar lymphadenopathy, even though it is not completely clear to me whether this represents progression from prior disease or not. He also had evidence for non-ST elevation myocardial infarction, even though based on the story provided it did not have any kiley anginal sounding chest discomfort and the only chest pain he had was in association with cough. He still feels that the cough is of a big problem. When he ambulates, he will get a sensation of irritation and is asking for some decongestant. From cardiac perspective, I would not mind if he is discharged. I do not foresee that we will pursue coronary angiography in his current condition and setting. He does not have any kiley anginal symptoms, and I would continue aspirin and full dose Xarelto in current dose. He is also on beta-fredy high-dose statin and a stable dose of diuretics. I do not think that he will tolerate angiotensin-converting enzyme (SUGEY) inhibitor very well because his blood pressure has been running quite low. As far as the lung cancer is concerned, I am not completely clear what the next plan is. He missed his Keytruda dose last Monday. It also is not clear to me whether his current CT scan represents progression of disease or not. The analysis of the fluid also does not provide clear-cut answer. The cytology is pending. I think it would be nice to get some oncology opinion before he goes home because, at this point, he is not quite sure what to expect. Unfortunately, considering his cardiomyopathy, coronary artery disease, atrial fibrillation, consequences of prior stroke and now extensive right upper lobe mass with pleural effusion and lymphadenopathy his overall both prognosis and quality of life is very poor. NOBLE
--- NOTE | 2019-03-19 08:40 | IPN ---
DATE: 03/19/2019 Shortly after I finished rounding on Mr. Macedo I was called by the residential monitor that he had a run of nonsustained ventricular tachycardia. I reviewed telemetry strips and indeed he had about 19 beats run of nonsustained VT that was followed by multiple brief runs 405 in the row typically asymptomatic at that time. In between he has been ventricular paced because his laboratories are otherwise unremarkable this morning I will give him a single dose of IV amiodarone to try to suppress the ventricular ectopy. As far as the further management is concerned, will have to address this in coordination with oncology. I really need their input regarding his current condition before we can make any long-term decisions about his cardiac care. Considering his multiple comorbidities and very poor clinic of clinical status. I am not optimistic about options of further aggressive management.
--- NOTE | 2019-03-19 08:42 | REP ---
Clinical: Extra pleural effusion. Comparison: 03/18/2019. Findings: Small/moderate right pleural effusion is again noted and may be slightly increased when compared to prior examination. A new small right apical pneumothorax is now identified. Mediastinal/hilar adenopathy and/or mass along with left sided infiltrates remain stable. Stable cardiomegaly. Impression: 1. Small right apical pneumothorax represents a change from prior examination. 2. Small/moderate right pleural effusion may be slightly increased from prior examination. 3. Mediastinal and left-sided opacities unchanged. Electronically Signed by Abiodun Hendricks MD 03/19/2019 08:33 A
[2019-03-19] MEDS ORDERED: CEPACOL LOZENGE PO PRN (08:45)
[2019-03-19] MEDS: FUROSEMIDE 40 MG TAB PO SCH (08:57)
[2019-03-19] MEDS: ASPIRIN 81 MG ENTERIC TAB PO SCH (08:57)
[2019-03-19] MEDS: guaiFENesin ER 600 MG TAB PO SCH ×2 (08:57→20:50)
[2019-03-19] MEDS: OMEPRAZOLE 20 MG CAP PO SCH (08:57)
[2019-03-19] MEDS: lisinopriL 10 MG TAB PO SCH (08:59)
[2019-03-19] MEDS: CARVedilol 6.25 MG TAB PO SCH ×2 (08:59→20:50)
[2019-03-19] MEDS ORDERED: AMIODARONE HCL 150 MG in IV 1 EA IV ONE (09:00)
[2019-03-19] MEDS: SODIUM CHLORIDE 0.9% INJ 10 ML SYR IV SCH (09:03)
--- NOTE | 2019-03-19 10:45 | IPNPDOC ---
Text Note Date of Service The patient was seen on 03/19/19. NOTE Subjective: Patient continues to have mild shortness of breath with cough how ever laying downing flat not needing any oxygen. Patient denied any chest pain or palpitations. telemetry thism am shows severeal episodes of NSVTs about 15 to 22 beats with smaller runs of 3 to 5 beats. Patient was asymptomatic during the episodes. He does complain of a chronic pressure in chavez chest and a sensation of needing to cough frequently and says feels like secretions are stuck int he [address] of the chest which he cant bring up. Objective: VITAL SIGNS: Please see below. GENERAL APPEARANCE: Well-nourished, well-developed, not in apparent distress HEENT: Normocephalic, atraumatic. Mucous members moist and pink, Facial deviation to right. CARDIOVASCULAR: Regular rate and rhythm. Pacemaker in place. Radial pulses are intact LUNGS: Bilateral coarse breath sounds to some wheezing and added ronchorous sounds. ABDOMEN: Abdomen is soft and nontender. Bowel sounds normal. MUSCULOSKELETAL: Range of motion is intact in all 4 extremities NEUROLOGICAL: Left hemiparesis. Left upper extremity 1/5 power, lower extremity3/5 power. Speech is not dysarthric, no nuchal rigidity EXTREMITIES: trace bilateral pitting edema Left > right. Chronic venous stasis dermatitis. Labs and radiology: reviewed. Assessment/Plan: Patient 69 years old with past history of CVA, atrial fibrillation, lung cancer was directly transferred to the hospital from [facility] with increased shortness of breath secondary to the right pleural effusion. 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 He had multiple pleuracentesis in the past. Also patient was found to have elevated troponin level 7.6, second troponin was 8.3. Patient denied any chest pain. After discussion with the patient and inspecting machine adjuster Dr. Grant, transfer to [place] for possible cardiac catheterization was declined by patient. Patient received conservative treatment for [place]. Dr. Hernandez drained the pleural fluid via chest tube. On 03/17/19 Dr. Hernandez removed chest tube. Await PT/OT clearance Recurrent pleural effusion on right borderline neither transudative nor exudative. due to lung malignancy vs CHF Dr. Hernandez drained the pleural fluid via pig tail cath. On 03/17/19 Dr. Hernandez removed chest drain. CXR today with small apical pneumothorax, still has moderate pleural effusion a little more Chronic Atrial fibrillation Heart rate is under control betablocker, xarelto. AICD in place Acute NSTEMI Patient declined to be transferred to acute cardiac facility for interventional cardiology Dr. 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 Currently on Ketruda every 3 weeks. Follow-up with oncologist for prognosis. 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 Coronary artery disease, status post coronary artery bypass grafting. continue asa, xarelto, betablocker, statin. Cardiac arrhythmias. NSVT and 3 to 5 beat v tachs with paced rhythm in between got 1 dose of amiodarone this am. Ischemic cardiomyopathy with Systolic Congestive heart failure with low ejection fraction. Has AICD in place. lisinopril, lasix Peripheral vascular disease. asa, statin Hypertension. lisinopril, coreg, lasix DVT prophylaxis in place. Code DNR and DNI. VS,Fishbone, I+O VS, Fishbone, I+O Laboratory Tests 03/19/19 05:59 Vital Signs Date Time Temp Pulse Resp B/P (MAP) Pulse Ox O2 Delivery O2 Flow Rate FiO2 03/19/19 08:59 70 144/74 03/19/19 08:00 96.8 17 92 Room Air 03/18/19 08:08 1.0 I&O- Last 24 Hours up to 6 AM 03/19/19 05:59 Intake Total 1080 ml Output Total 550 ml Balance 530 ml BROOKE ROBLERO MD Mar 19, 2019 10:44
[2019-03-19] MEDS: RIVAROXABAN 20 MG TAB (XARELTO) PO SCH (18:32)
[2019-03-19] MEDS: ROSUVASTATIN 10 MG TAB (CRESTOR) PO SCH (20:49)
[2019-03-20] VITALS (17 sets, daily range): BP systolic 101–122; BP diastolic 62–72; O2SAT 89–99
[2019-03-20 06:05] LABS: BASO # 0.1 10^3/uL (0.0-0.2); BASO % 1.1 % (0.0-1.0); EOS # 0.3 10^3/uL (0.0-0.5); HEMATOCRIT 38.5 % (42.0-52.0); HEMOGLOBIN 11.8 g/dl (13.5-17.5); LYMPH # 0.3 10^3/uL (1.5-5.0); LYMPH % 5.9 % (24.0-44.0); MEAN CORPUSCULAR HEMOGLOBIN 27.3 pg (27.0-33.0); MEAN CORPUSCULAR HGB CONC 30.6 g/dl (32.0-36.5); MEAN CORPUSCULAR VOLUME 88.9 fl (80.0-96.0); MONO # 0.5 10^3/uL (0.0-0.8); MONO % 8.4 % (0.0-5.0); NEUTROPHILS # 4.4 10^3/uL (1.5-8.5); NEUTROPHILS % 79.1 % (36.0-66.0); PLATELET COUNT, AUTOMATED 188 10^3/uL (150-450); RED BLOOD COUNT 4.33 10^6/uL (4.30-6.10); WHITE BLOOD COUNT 5.6 10^3/uL (4.0-10.0)
[2019-03-20 06:26] LABS: BLOOD UREA NITROGEN 16 MG/DL (7-18); CALCIUM LEVEL 9.3 MG/DL (8.8-10.2); CARBON DIOXIDE LEVEL 37 MEQ/L (21-32); CHLORIDE LEVEL 97 MEQ/L (98-107); CREATININE FOR GFR 0.71 MG/DL (0.70-1.30); GLOMERULAR FILTRATION RATE > 60.0 (>42); GLUCOSE, FASTING 90 MG/DL (70-100); POTASSIUM SERUM 3.6 MEQ/L (3.5-5.1); SODIUM LEVEL 139 MEQ/L (136-145)
--- NOTE | 2019-03-20 08:28 | IPN ---
DATE: 03/20/2019 Mr. Macedo is not doing very well. His dominant complaint remains cough. This is the first time when I actually witnessed his coughing spell. He was just eating breakfast, but denies any sensation of aspiration but he has this persistent long coughing spell without expectorating any substance. He tells me that often expectorate some degree of sputum which is on occasion slightly bloody but often he would not to bring up anything but spell getting longer and longer he has a lot of pain in his upper abdomen and also chest and with his ramana paresis it has been challenging for him. Outside the coughing spells he does not have any chest pain. Telemetry monitoring. Unfortunately continues to reveal frequent episodes of ventricular tachycardia most of the runs of very brief he had one prolonged yesterday but today there are only a few beats at a time. Vital signs: Blood pressure 111/60 and has been similar range, heart rate most of the time 70 beats per minute and it is atrial fibrillation with biventricular pacing. He is afebrile. Saturation is 93% on 1 or 2 liters of oxygen by nasal cannula. Fluid the balance yesterday was slightly positive about this 400, weight is essentially unchanged at 110.7. He is alert and oriented appropriate. His JVP does not look high. Lungs are relatively clear on the left on the right though I still appreciate somewhat diminished breath sounds over the base as well as the top of his right lung. No wheezing and no obvious crackles. I do not appreciate any stridor either. Heart exam reveals somewhat muffled heart sounds. I do not appreciate distinct gallop or rub. There is faint murmur at the apex. The abdomen is soft, nontender. He does not have any peripheral edema. Neurologically he has a fairly dense left-sided hemiparesis almost plegia on the upper extremity. LABORATORY: Basic metabolic panel is normal CBC hemoglobin 11.8, hematocrit 38, platelet count 188,000 ASSESSMENT/PLAN: Mr. Macedo is a 69-year-old man who has multitude of medical problems that include coronary artery disease with ischemic cardiomyopathy, chronic atrial fibrillation, status post ICD placement, history of CVA with dense left-sided hemiparesis affecting more upper than lower extremity. He presented with shortness of breath and cough and was found to have fairly large right-sided pleural effusion and also non-stemi. After discussion I advocated to use purely medical management which we have been doing the fluid was drained by Dr. Hernandez. The analysis is somewhere between exudate as an transudate by LDH and total protein, cytology was negative though, but the volume sent for cytology was very low. I am going to obtain an echocardiogram today I am not quite sure why there is so much ventricular ectopy and I want to make sure there is no invasion of the pericardium by the tumor. He also that he does not have pericardial effusion, even though it was not convincingly shown on a CT of the chest. If VT continues to have problem will start him on oral amiodarone. Otherwise I do not appreciate any distinct congestive heart failure and I believe his cardiac medications can be left unchanged. As far as the cough is concerned, this is leading problem. I am not quite sure what is the etiology, it may not hurt to get pulmonary involved to see whether there is anything to help it because it is becoming a major issue. My big concern is whether it could be caused by some airway compromise either from the external obstruction or endobronchial lesions.
[2019-03-20] MEDS: ASPIRIN 81 MG ENTERIC TAB PO SCH (08:33)
[2019-03-20] MEDS: guaiFENesin ER 600 MG TAB PO SCH ×2 (08:35→20:33)
[2019-03-20] MEDS: FUROSEMIDE 40 MG TAB PO SCH (08:35)
[2019-03-20] MEDS: lisinopriL 10 MG TAB PO SCH (08:35)
[2019-03-20] MEDS: OMEPRAZOLE 20 MG CAP PO SCH (08:35)
[2019-03-20] MEDS: CARVedilol 6.25 MG TAB PO SCH ×2 (08:35→20:21)
[2019-03-20] MEDS: SODIUM CHLORIDE 0.9% INJ 10 ML SYR IV SCH (08:36)
[2019-03-20] MEDS: AMIODARONE 200 MG TAB (PACERONE) PO SCH ×2 (08:54→20:33)
[2019-03-20] MEDS ORDERED: AMIODARONE HCL 150 MG in IV 1 EA IV ONE (09:00)
[2019-03-20] MEDS: SODIUM CHLORIDE 0.9% INJ 10 ML SYR IV PRN (09:15)
--- NOTE | 2019-03-20 13:49 | IPNPDOC ---
Text Note Date of Service The patient was seen on 03/20/19. NOTE Subjective: Patient continues to have mild shortness of breath with cough how ever laying downing flat not needing any oxygen. His main complaint is a bothersome cough. Feels that it is stuck right at chavez center of the chest and he cannot bring it up. Patient denied any chest pain or palpitations. Telemetry continues to show NSVTs. Objective: VITAL SIGNS: Please see below. GENERAL APPEARANCE: Well-nourished, well-developed, not in apparent distress HEENT: Normocephalic, atraumatic. Mucous members moist and pink, Facial deviation to right. Visual impairment. CARDIOVASCULAR: Regular rate and rhythm. Pacemaker in place. Radial pulses are intact LUNGS: Bilateral coarse breath sounds to some wheezing and added ronchorous sounds. ABDOMEN: Abdomen is soft and nontender. Bowel sounds normal. MUSCULOSKELETAL: Range of motion is intact in all 4 extremities NEUROLOGICAL: Left hemiparesis. Left upper extremity 1/5 power, lower extremity3/5 power. Speech is not dysarthric, no nuchal rigidity EXTREMITIES: trace bilateral pitting edema Left > right. Chronic venous stasis dermatitis. Labs and radiology: reviewed. Assessment/Plan: Patient 69 years old with past history of CVA, atrial fibrillation, lung cancer was directly transferred to the hospital from [facility] with increased shortness of breath secondary to the right pleural effusion. 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 He had multiple pleuracentesis in the past. Also patient was found to have elevated troponin level 7.6, second troponin was 8.3. Patient denied any chest pain. After discussion with the patient and director of individual giving Dr. Grant, transfer to [place] for possible cardiac catheterization was declined by patient. Patient received conservative treatment for [place]. Dr. Hernandez drained the pleural fluid via chest tube. On 03/17/19 Dr. Hernandez removed chest tube. Currently having frequent NSVTs on the telemetry. Await PT/OT clearance Cardiac arrhythmias. frequent NSVTs ? pericardial involvement by cancer started on amiodarone echo today. Ischemic cardiomyopathy with Systolic Congestive heart failure with low ejection fraction. Has AICD in place. lisinopril, lasix Acute NSTEMI Patient declined to be transferred to acute cardiac facility for interventional cardiology Dr. Grant following him Continue beta fredy, asa, statin, xarelto Coronary artery disease, status post coronary artery bypass grafting. continue asa, xarelto, betablocker, statin. Chronic Atrial fibrillation Heart rate is under control betablocker, xarelto. AICD in place Persistent cough probably from the pressure effect of the cancer will give mucinex Recurrent pleural effusion on right borderline neither transudative nor exudative. due to lung malignancy vs CHF Dr. Hernandez drained the pleural fluid via pig tail cath. On 03/17/19 Dr. Hernandez removed chest drain. CXR after removal of pig tail with small apical pneumothorax, still has moderate pleural effusion a little more will repeat tomorrow. Non-small cell carcinoma of right lung with mediastinal mass and lymphnodes. 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 Currently on Ketruda every 3 weeks. Follow-up with oncologist for prognosis. 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 Peripheral vascular disease. asa, statin Hypertension. lisinopril, coreg, lasix DVT prophylaxis in place. Code DNR and DNI. VS,Fishbone, I+O VS, Fishbone, I+O Laboratory Tests 03/20/19 05:27 Vital Signs Date Time Temp Pulse Resp B/P (MAP) Pulse Ox O2 Delivery O2 Flow Rate FiO2 03/20/19 12:01 2.0 03/20/19 12:00 97.6 69 18 120/70 (87) 96 Nasal Cannula I&O- Last 24 Hours up to 6 AM 03/20/19 05:59 Intake Total 1440 ml Output Total 1250 ml Balance 190 ml BROOKE ROBLERO MD Mar 20, 2019 13:49
[2019-03-20] MEDS: RIVAROXABAN 20 MG TAB (XARELTO) PO SCH (20:33)
[2019-03-20] MEDS: ROSUVASTATIN 10 MG TAB (CRESTOR) PO SCH (20:33)
[2019-03-21] VITALS (15 sets, daily range): BP systolic 82–130; BP diastolic 50–72; O2SAT 92–96
[2019-03-21] MEDS ORDERED: KETOROLAC 30 MG/ML VIAL (J1885) IV ONE (05:45)
[2019-03-21 06:01] LABS: BASO # 0.1 10^3/uL (0.0-0.2); BASO % 0.9 % (0.0-1.0); EOS # 0.3 10^3/uL (0.0-0.5); EOS % 4.3 % (0.0-3.0); HEMATOCRIT 36.9 % (42.0-52.0); HEMOGLOBIN 11.3 g/dl (13.5-17.5); LYMPH # 0.3 10^3/uL (1.5-5.0); LYMPH % 5.8 % (24.0-44.0); MEAN CORPUSCULAR HEMOGLOBIN 27.3 pg (27.0-33.0); MEAN CORPUSCULAR HGB CONC 30.6 g/dl (32.0-36.5); MEAN CORPUSCULAR VOLUME 89.1 fl (80.0-96.0); MONO # 0.5 10^3/uL (0.0-0.8); MONO % 8.6 % (0.0-5.0); NEUTROPHILS # 4.7 10^3/uL (1.5-8.5); NEUTROPHILS % 79.9 % (36.0-66.0); PLATELET COUNT, AUTOMATED 184 10^3/uL (150-450); RED BLOOD COUNT 4.14 10^6/uL (4.30-6.10); WHITE BLOOD COUNT 5.8 10^3/uL (4.0-10.0)
[2019-03-21 06:30] LABS: BLOOD UREA NITROGEN 16 MG/DL (7-18); CALCIUM LEVEL 8.8 MG/DL (8.8-10.2); CARBON DIOXIDE LEVEL 40 MEQ/L (21-32); CHLORIDE LEVEL 96 MEQ/L (98-107); CREATININE FOR GFR 0.81 MG/DL (0.70-1.30); GLOMERULAR FILTRATION RATE > 60.0 (>42); GLUCOSE, FASTING 89 MG/DL (70-100); POTASSIUM SERUM 3.5 MEQ/L (3.5-5.1); SODIUM LEVEL 139 MEQ/L (136-145)
--- NOTE | 2019-03-21 07:23 | ECHO ---
DATE OF PROCEDURE: 03/20/2019 DATE OF : 1950 AGE: 69 PATIENT LOCATION: Room 3226 REFERRING PROVIDER: Dr. Grant REASON FOR STUDY: Acute myocardial infarction. 2-D MEASUREMENTS: IVS: 1.4 cm LV: 6.6 cm LVPW: 1.4 cm LA: 5.6 cm Aorta: 3.9 cm IVC: 2.4 cm DOPPLER MEASUREMENTS: Peak velocity across the aortic valve: 1.0 m/s Peak velocity across the LVOT: 0.56 m/s Mitral E: 0.79 Tricuspid valve velocity: 1.9 m/s 2-D COMMENTS: 1. Moderately enlarged left ventricle with preserved left ventricular wall thickness, but with a severely depressed global left ventricular systolic function. The estimated global left ventricular systolic ejection fraction is 20%. 2. Moderately enlarged left atrium. The right atrium also appeared to be enlarged. The right ventricle appeared to be mildly enlarged with decreased right ventricular free wall contraction. 3. The atrial septum appeared to be normal without evidence of defect or shunt. 4. Mildly dilated aortic root at 3.9 cm. 5. A small pericardial effusion noted, no evidence of cardiac tamponade. 6. Mildly calcified aortic valve with normal leaflet excursion. Mildly calcified mitral annulus with normal anterior mitral valve leaflet motion. Normal tricuspid valve. The pulmonic valve and proximal pulmonary artery branches were not well visualized. 7. The inferior vena cava is mildly enlarged, central venous pressure might be elevated. 8. Pacemaker wire artifacts noted in the right heart chambers. DOPPLER: It detects trace aortic regurgitation, moderate eccentric mitral regurgitation, mild tricuspid regurgitation. The calculated pulmonary artery systolic pressure appeared to be normal, but may be underestimated. Assessment of the left ventricular diastolic function was limited, the patient appeared to be in atrial fibrillation during the test. IMPRESSION: 1. Severe global left ventricular systolic dysfunction with an enlarged left ventricle, but preserved left ventricular wall thickness. 2. Assessment of the left ventricular diastolic function was limited in view of the underlying arrhythmias. 3. Aortic valve sclerosis with trace aortic regurgitation, but no aortic stenosis. 4. Mitral annulus calcification with moderately enlarged left atrium and moderate mitral regurgitation. 5. Mild tricuspid regurgitation with a normal calculated pulmonary artery systolic pressure, probably underestimated. Both the right atrium and the right ventricle appeared to be mildly enlarged. 6. Pacemaker/AICD wire artifacts noted in the right heart chambers. 7. A small pericardial effusion noted, no evidence of cardiac tamponade. MTDD
--- NOTE | 2019-03-21 07:39 | REP ---
Clinical: Follow-up hydropneumothorax. Comparison: 03/19/2019. Findings: Stable right pleural effusion. Right apical pneumothorax has slightly increased from prior examinations. Remainder of the examination including mediastinum and left hemithorax appears stable. Impression: 1. Stable right pleural effusion. 2. Slight increase to the right apical pneumothorax. Electronically Signed by Abiodun Hendricks MD 03/21/2019 07:31 A
[2019-03-21] MEDS: ASPIRIN 81 MG ENTERIC TAB PO SCH (08:36)
[2019-03-21] MEDS: OMEPRAZOLE 20 MG CAP PO SCH (08:36)
[2019-03-21] MEDS: lisinopriL 10 MG TAB PO SCH (08:36)
[2019-03-21] MEDS: AMIODARONE 200 MG TAB (PACERONE) PO SCH ×2 (08:36→21:00)
[2019-03-21] MEDS: guaiFENesin ER 600 MG TAB PO SCH ×2 (08:37→21:26)
[2019-03-21] MEDS: CARVedilol 6.25 MG TAB PO SCH ×2 (08:37→20:47)
[2019-03-21] MEDS: FUROSEMIDE 40 MG TAB PO SCH (08:37)
[2019-03-21] MEDS: SODIUM CHLORIDE 0.9% INJ 10 ML SYR IV SCH (08:37)
--- NOTE | 2019-03-21 09:10 | IPN ---
DATE: 03/21/2019 Mr. Elder is about the same as yesterday even though there has been some modest improvement. He is not coughing as much and also the ventricular ectopy has subsided significantly. He denies any chest discomfort, shortness of breath is unchanged and he has not ambulated much. Blood pressure 111/72, heart rate has been in the 70s and biventricular paced underlying atrial fibrillation, he is afebrile, saturation 93% on 1 liter of oxygen. His fluid balance yesterday was relatively positive, weight is 109.5 . He is alert and oriented and appropriate. I do not appreciate distinct jugular venous pulse (JVP) elevation. Lungs are clear on the left , on the right there are diminished breath sound about one-quarter to one-third. Heart exam reveals regular rhythm. I do not appreciate any distinct gallop or rub. Abdomen is soft. Extremities are free of edema. Neurologically there is ongoing dense left hemiparesis almost hemiplegia. LABORATORY: Hemoglobin 11.0, hematocrit 36 and platelet count 184, basic metabolic panel is normal. ASSESSMENT/PLAN: Mr. Macedo is a 69-year-old man who came with a right pleural effusion and non-STEMI. As far as the heart is concerned, we have been treating him conservatively. He has not had any anginal symptoms but he did have runs of nonsustained ventricular tachycardia for which I started him on amiodarone. We got an echocardiogram on him yesterday because I was concerned about possibility of potentially pericardial effusion but it turns out that this is not the case. He does have pretty severe left ventricular systolic dysfunction and moderate mitral insufficiency. I do not have any new recommendations for his management. I do believe that we desperately need oncology input as to how to navigate further management of his pleural effusion and further prognostic information.
--- NOTE | 2019-03-21 11:39 | IPNPDOC ---
Text Note Date of Service The patient was seen on 03/21/19. NOTE Subjective: Patient continues to have mild shortness of breath with cough how ever laying downing flat not needing any oxygen. His main complaint is a bothersome cough. Feels that it is stuck right at [facility] center of the chest and he cannot bring it up. Patient denied any chest pain or palpitations. Telemetry continues to show NSVTs but much less. Objective: VITAL SIGNS: Please see below. GENERAL APPEARANCE: Well-nourished, well-developed, not in apparent distress HEENT: Normocephalic, atraumatic. Mucous members moist and pink, Facial deviation to right. Visual impairment. CARDIOVASCULAR: Regular rate and rhythm. Pacemaker in place. Radial pulses are intact LUNGS: Bilateral coarse breath sounds , few wheezes ABDOMEN: Abdomen is soft and nontender. Bowel sounds normal. NEUROLOGICAL: Left hemiparesis. Left upper extremity 1/5 power, lower extremity3/5 power. Speech is not dysarthric, no nuchal rigidity EXTREMITIES: trace bilateral pitting edema Left > right. Chronic venous stasis dermatitis. Labs and radiology: reviewed. Assessment/Plan: Patient 69 years old with past history of CVA, atrial fibrillation, lung cancer was directly transferred to the hospital from [facility] with increased shortness of breath secondary to the right pleural effusion. 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 He had multiple pleuracentesis in the past. Also patient was found to have elevated troponin level 7.6, second troponin was 8.3. Patient denied any chest pain. After discussion with the patient and transition nurse Dr. Grant, transfer to [place] for possible cardiac catheterization was declined by patient. Patient received conservative treatment for [place]. Dr. Hernandez drained the pleural fluid via chest tube. On 03/17/19 Dr. Hernandez removed chest tube. Currently having frequent NSVTs on the telemetry. Await PT/OT clearance Cardiac arrhythmias. frequent NSVTs in Echo only small pericardial effusion started on amiodarone better controlled. Ischemic cardiomyopathy with Systolic Congestive heart failure with low ejection fraction. Has AICD in place. lisinopril, lasix Echo Shows: . Moderately enlarged left ventricle with preserved left ventricular wall thickness, but with a severely depressed global left ventricular systolic function. The estimated global left ventricular systolic ejection fraction is 20%. Moderately enlarged left atrium. The right atrium also appeared to be enlarged. The right ventricle appeared to be mildly enlarged with decreased right ventricular free wall contraction. Mildly dilated aortic root at 3.9 cm. A small pericardial effusion noted, no evidence of cardiac tamponade. Moderate Mitral regurgitation. Acute NSTEMI Patient declined to be transferred to acute cardiac facility for interventional cardiology Dr. Grant following him Continue beta fredy, asa, statin, xarelto Coronary artery disease, status post coronary artery bypass grafting. continue asa, xarelto, betablocker, statin. Chronic Atrial fibrillation Heart rate is under control betablocker, xarelto. AICD in place Persistent cough probably from the pressure effect of the cancer will give mucinex Recurrent pleural effusion on right borderline neither transudative nor exudative. due to lung malignancy vs CHF Dr. Hernandez drained the pleural fluid via pig tail cath. On 03/17/19 Dr. Hernandez removed chest drain. CXR after removal of pig tail with small apical pneumothorax, still has moderate pleural effusion a little more. CXR today a little worse pneumothorax, stable pleural effusion. Non-small cell carcinoma of right lung with mediastinal mass and lymphnodes. 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 Currently on Ketruda every 3 weeks. Follow-up with oncologist for prognosis. 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 Peripheral vascular disease. asa, statin Hypertension. lisinopril, coreg, lasix DVT prophylaxis in place. Code DNR and DNI. VS,Fishbone, I+O VS, Fishbone, I+O Laboratory Tests 03/21/19 05:37 Vital Signs Date Time Temp Pulse Resp B/P (MAP) Pulse Ox O2 Delivery O2 Flow Rate FiO2 03/21/19 08:36 111/72 03/21/19 08:00 97.7 70 16 93 Nasal Cannula 1.0 I&O- Last 24 Hours up to 6 AM 03/21/19 06:00 Intake Total 540 ml Output Total 200 ml Balance 340 ml BROOKE ROBLERO MD Mar 21, 2019 11:39
[2019-03-21] MEDS ORDERED: BISACODYL 10 MG SUPP PR ONE (16:15)
[2019-03-21] MEDS: SENOKOT S TAB PO SCH (17:35)
[2019-03-21] MEDS: RIVAROXABAN 20 MG TAB (XARELTO) PO SCH (17:35)
[2019-03-21] MEDS: ROSUVASTATIN 10 MG TAB (CRESTOR) PO SCH (21:25)
[2019-03-22] VITALS (23 sets, daily range): BP systolic 88–141; BP diastolic 50–78; O2SAT 90–99
[2019-03-22 05:42] LABS: BASO % 0.7 % (0.0-1.0); EOS # 0.3 10^3/uL (0.0-0.5); EOS % 4.2 % (0.0-3.0); HEMATOCRIT 36.5 % (42.0-52.0); HEMOGLOBIN 11.2 g/dl (13.5-17.5); LYMPH # 0.4 10^3/uL (1.5-5.0); LYMPH % 5.9 % (24.0-44.0); MEAN CORPUSCULAR HEMOGLOBIN 27.4 pg (27.0-33.0); MEAN CORPUSCULAR HGB CONC 30.7 g/dl (32.0-36.5); MEAN CORPUSCULAR VOLUME 89.2 fl (80.0-96.0); MONO # 0.5 10^3/uL (0.0-0.8); MONO % 8.3 % (0.0-5.0); NEUTROPHILS # 4.7 10^3/uL (1.5-8.5); NEUTROPHILS % 80.4 % (36.0-66.0); PLATELET COUNT, AUTOMATED 181 10^3/uL (150-450); RED BLOOD COUNT 4.09 10^6/uL (4.30-6.10); WHITE BLOOD COUNT 5.9 10^3/uL (4.0-10.0)
[2019-03-22] MEDS ORDERED: BISACODYL 10 MG SUPP PR PRN (06:00)
[2019-03-22 06:09] LABS: BLOOD UREA NITROGEN 22 MG/DL (7-18); CALCIUM LEVEL 8.6 MG/DL (8.8-10.2); CARBON DIOXIDE LEVEL 38 MEQ/L (21-32); CHLORIDE LEVEL 94 MEQ/L (98-107); CREATININE FOR GFR 0.91 MG/DL (0.70-1.30); GLOMERULAR FILTRATION RATE > 60.0 (>42); GLUCOSE, FASTING 95 MG/DL (70-100); POTASSIUM SERUM 3.7 MEQ/L (3.5-5.1); SODIUM LEVEL 137 MEQ/L (136-145)
--- NOTE | 2019-03-22 08:44 | IPN ---
DATE: 03/22/2019 Mr. Macedo is about the same. He reports some improvement in his cough and he is expectorating some mucus, which seems to be helping him. Blood pressure 118/74. Heart rate has been in 70s almost invariably ventricular paced, again had several runs of brief nonsustained ventricular tachycardia (VT) that were asymptomatic. Weight is 109.8 kg. He is alert and oriented appropriate. His jugular venous pulse (JVP) is not high. Lungs are clear on the left, on the right he still has diminished breath sounds over the base. Heart reveals regular rhythm without obvious gallop or rub and there is faint murmur at the apex. Abdomen is soft. He does not have peripheral edema. LABORATORIES: He has CBC with WBC count 5.9, hemoglobin 11.2, hematocrit 36, and platelet count 81,000. Basic metabolic panel is essentially normal. Potassium 3.7, BUN 22, creatinine 0.9. ASSESSMENT AND PLAN: Mr. Macedo is a 69-year-old man who has a multitude of medical problems that include presence of chronic systolic congestive heart failure, coronary artery disease, chronic atrial fibrillation status post biventricular defibrillator and stage III lung cancer that has been treated currently with Keytruda. He presented with chest pain that was occurring during the spells of cough. He had evidence for non-STEMI but we opted for medical management considering his overall condition. He so far has done well from cardiac perspective. The only complications have been runs of nonsustained ventricular tachycardia for which he was started on amiodarone. Apparently, Dr. Franco talked to his oncologist yesterday and the impression is that he has been stable and even though it is impossible to adequately predict his future there has not been any progression of tumor with current chemotherapeutic regimen. From my perspective, he can be discharged home provided adequate nursing care and support care is provided. I tentatively plan to see in followup in about 2-3 weeks.
[2019-03-22] MEDS: CARVedilol 6.25 MG TAB PO SCH ×3 (09:00→20:02)
[2019-03-22] MEDS: lisinopriL 10 MG TAB PO SCH (09:00)
[2019-03-22] MEDS: guaiFENesin ER 600 MG TAB PO SCH ×2 (09:06→20:01)
[2019-03-22] MEDS: ASPIRIN 81 MG ENTERIC TAB PO SCH (09:06)
[2019-03-22] MEDS: OMEPRAZOLE 20 MG CAP PO SCH (09:06)
[2019-03-22] MEDS: SENOKOT S TAB PO SCH ×2 (09:06→20:01)
[2019-03-22] MEDS: SODIUM CHLORIDE 0.9% INJ 10 ML SYR IV SCH (09:07)
[2019-03-22] MEDS: FUROSEMIDE 40 MG TAB PO SCH (10:31)
[2019-03-22] MEDS: AMIODARONE 200 MG TAB (PACERONE) PO SCH ×2 (10:31→20:02)
[2019-03-22] MEDS ORDERED: MAGNESIUM SULFATE 1 GM/100 ML D5W BAG (10MG/ML) (J3475) As Ordered ONE (10:50)
[2019-03-22] MEDS ORDERED: MAG SULF 1GM/100ML (MAG RUN) 1 GM in IV 1 EA IV ONE (11:00)
[2019-03-22] MEDS ORDERED: AMIODARONE HCL 150 MG in IV 1 EA IV STA ×2 (11:24→12:35)
[2019-03-22] MEDS ORDERED: POTASSIUM CHLORIDE 10 MEQ SR TABLET PO ONE (13:00)
--- NOTE | 2019-03-22 14:55 | CR ---
DATE OF CONSULTATION: 03/21/2019 REASON FOR CONSULTATION: I was asked by Dr. Franco to evaluate Mr. Macedo cough recommendations. HISTORY OF PRESENT ILLNESS: Mr. Macedo is a 69-year-old white male with a past medical history significant for stage III B, poorly differentiated non-small cell carcinoma, CVA, atrial fibrillation, and right pleural effusion who initially presented to [facility] with increased shortness of breath. He was found to have recurrence of right pleural effusion and an elevated troponin and so he was transferred to [facility] for further evaluation. He was seen by cardiology and found to have a non ST elevation myocardial infarction. He was also evaluated by Dr. Hernandez for his right pleural effusion that was felt secondary to recurrent carcinoma radiation serositis. Ideally, PleurX catheter would have been considered, but because of his acute myocardial infarction, it was decided not to pursue that option due to the need for sedation and not wanting to do that for at least 6 weeks. He therefore had a pigtail catheter placed and had the fluid drained, which appeared to be transudative by LDH standard but exudative by total protein. The fluid was predominately lymphocytic and did not appear infected. Mr. Macedo has some shortness of breath but he does not find this disabling. He has not had any chest pain or palpitations; however, he has a cough that he finds very bothersome. He feels he has sputum to cough up, but he only can get it to the region of likely the vocal cords and cannot expectorate. He has had several coughing jags. When he has been able to expectorate, the sputum has been clear. No hemoptysis. He has had no fevers, chills or drenching night sweats. At his baseline, he can walk some with assistance. He had been able to climb a couple of steps. He has been on chemotherapy, including Keytruda, which he was due for his next dose this past Monday. He has been receiving it every 3 weeks. In regard to his past pulmonary history, he has known moderately severe chronic obstructive pulmonary disease (COPD). He is not on any inpatient directed COPD medications. When I last him as an outpatient in August 2016, he had been on Anoro and had access to an as-needed bronchodilator. PAST MEDICAL HISTORY: 1. COPD, moderately severe with an FEV-1 in 07/2017 of 2.20 (58%) and FVC of 3.95 (77%). 2. Coronary artery disease. A. Status post coronary artery bypass graft (CABG). 3. History of myocardial infarction. 4. Status post AICD placement. 5. Myocardial infarction this admission. 6. Atrial fibrillation. 7. Status post femoral endarterectomy for peripheral vascular disease. 8. Stage III B poorly differentiated non-small cell carcinoma diagnosed 2017. A. Status post XRT. B. Receiving chemotherapy, including Keytruda q. 3 weeks. 9. Status post CVA. 10. Peripheral vascular disease. 11. Hypertension. 12. Recurrent right pleural effusion. 13. History of tobacco usage. ALLERGIES: NO KNOWN DRUG ALLERGIES. MEDICATIONS: - guaifenesin 600 mg by mouth twice a day - acetaminophen 650 mg by mouth every 4 hours as needed - amiodarone 400 mg by mouth twice a day - aspirin 81 mg by mouth daily - Dulcolax suppository as needed - Coreg 6.25 mg by mouth twice a day - Cepacol lozenge every 4 hours as needed - Senokot one tablet by mouth twice a day - Lasix 40 mg by mouth daily - Lisinopril 10 mg by mouth daily - omeprazole 20 mg by mouth daily - Xarelto 20 mg by mouth daily - Crestor 20 mg by mouth at night FAMILY HISTORY: His mother at age 75 and had lung cancer, she was a smoker. His father at age 57 and he is not certain of the cause. He had a sister at age 56 from lung cancer, she was also smoker. SOCIAL HISTORY: Nic is a former smoker having averaged two packs per day for 25 years giving a 50 pack-year history. He quit in 1995. He does not drink alcohol. No street drug usage. He lives with his . 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 A REVIEW OF SYSTEMS: As per history of present illness. Remainder of the review of systems are negative. PHYSICAL EXAMINATION General: Mr. Macedo is lying in bed on his left side. She speaks in short sentences but does not appear short of breath. He appears tired. VITAL SIGNS: Temperature 97.7, pulse 70, respiratory rate 16, blood pressure 111/72 with a MAP of 85. SPO2 93% on room air. HEENT: Anicteric. Nares: Patent bilaterally. Oropharynx clear, no lesions. Neck: Supple, without jugular venous distention (JVD), thyromegaly or masses. LUNGS: Symmetric excursion, good air entry. No wheeze, rhonchi or crackle on tidal excursion. Mildly prolonged expiratory phase. No accessory muscle usage or retractions. CARDIOVASCULAR: Regular rate and rhythm with a normal S1, S2. No murmur, rub or gallop appreciated. ABDOMEN: Positive bowel sounds, soft, nondistended, nontender. EXTREMITIES: 1 to 2+ edema surrounding his right ankle and trace to 1+ pretibially bilaterally. Without clubbing or cyanosis. NEUROLOGIC: Remains with dense left hemiparesis.. His left arm is in a sling. LABORATORY DATA: CBC from this morning showed a hemoglobin of 11.3, hematocrit of 36.9, platelet count of 184,000. White blood cell count 5800 with a differential of 80% neutrophils, 6% lymphocytes, 9% monocytes. Chemistry shows sodium 139, potassium 3.5, chloride 96, bicarbonate 40, anion gap 3, BUN 16, creatinine 0.81, glucose 89, calcium 8.8. The pleural fluid gram stain showed no organisms. Cultures had no growth both anaerobically or aerobically. AFB and mycotic cultures pending. I reviewed his chest x-ray from earlier today. That x-ray showed borderline cardiac silhouette and enlarged markings in the hilar region. There are no consolidated regions. There is a small right pneumothorax. There is a small right pleural effusion. I reviewed his chest CT scan, as well as report from 03/15/2019. That CT scan showed a moderate right pleural effusion. Normal cardiac silhouette. There is chronic right upper lobe atelectasis and changes in the hilar region, likely from XRT. There is a left upper lobe infiltrative process. There is enlarged cardiac silhouette. IMPRESSION: 1. Cough. The cough is likely multifactorial. I suspect that some of his cough may be related to his infiltrative process. He has aeration in all lobes so he does not have an occlusive endobronchial lesion, if he has any, and there does not appear to be any compressive atelectasis of his lungs outside of related to the pleural effusion, which has been drained. He has chronic obstructive pulmonary disease (COPD), but not on any medications and that may be contributing to his cough. It does not appear to be of infective origin. 2. Acute non ST elevation myocardial infarction. 3. Recurrent and chronic right pleural effusion for which he has had multiple thoracenteses, including this admission. 4. Chronic obstructive pulmonary disease (COPD), moderately severe, not currently on any COPD directed medications. 5. Atrial fibrillation, now in sinus rhythm. 6. Coronary artery disease. 7. Hypertension. 8. Status post history of a CVA with dense left hemiparesis. 9. Stage III B non-small cell carcinoma, status post XRT, receiving chemotherapy, including Keytruda every 3 weeks. 10. Distant history of tobacco usage. RECOMMENDATIONS: 1. His biggest complaint appears to be not that he cannot cough up the sputum but that he cannot expectorate. He is receiving the EZ-PAP. 2. We will add the Acapella to his regimen as a vibratory effective device may help him expectorate. 3. Consideration could be given to the vest, but given all his comorbidities and weakness, I am not certain how well he would tolerate it, if he would even want to try it. 4. I am not certain as to why he is not on any COPD directed medication, which may be of benefit to him. It may be that this has been lost given his multiple comorbidities. I do not know if it was a conscious decision to stop medications. 5. I will speak to the primary team and to Mr. Macedo tomorrow to see if these medications have been stopped by the team, by accident, or perhaps because Mr. Macedo does not want to take them any more. 6. If the decision is to restart COPD directed therapy, I would recommend trying nebulized corticosteroid, as well as nebulized if that is okay with cardiology. Also if cardiology has no contraindications, would try nebulized DuoNeb followed by the Acapella to see if this can enhance expectoration. My discussions with Mrs. Macedo with Mr. Elder present, she is not certain how much intervention he wants at this point. Therefore, I will respect his wishes in terms of how aggressive he wants us to try to be to help him with his cough. Thank you for this consult.
--- NOTE | 2019-03-22 16:02 | IPNPDOC ---
Text Note Date of Service The patient was seen on 03/22/19. NOTE Subjective: Patient having sustained V tach since this morning ranging form 50 secs to 1min and 30 sec. Patient remains asymptomatic through out. His biggest issue is that he cannot bring up the phlegm. Patient continues to have mild shortness of breath with cough however laying downing flat not needing any oxygen. He has been now cleared by PT. Objective: VITAL SIGNS: Please see below. GENERAL APPEARANCE: Well-nourished, well-developed, not in apparent distress HEENT: Normocephalic, atraumatic. Mucous members moist and pink, Facial deviation to right. Visual impairment. CARDIOVASCULAR: Regular rate and rhythm. Pacemaker in place. Radial pulses are intact LUNGS: Bilateral coarse breath sounds , few wheezes ABDOMEN: Abdomen is soft and nontender. Bowel sounds normal. NEUROLOGICAL: Left hemiparesis. Left upper extremity 1/5 power, lower extremity3/5 power. Speech is not dysarthric, no nuchal rigidity EXTREMITIES: trace bilateral pitting edema Left > right. Chronic venous stasis dermatitis. Labs and radiology: reviewed. Assessment/Plan: Patient 69 years old with past history of CVA, atrial fibrillation, lung cancer was directly transferred to the hospital from [facility] with increased shortness of breath secondary to the right pleural effusion. 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 He had multiple pleuracentesis in the past. Also patient was found to have elevated troponin level 7.6, second troponin was 8.3. Patient denied any chest pain. After discussion with the patient and director energy Dr. Grant, transfer to [place] for possible cardiac catheterization was declined by patient. Patient received conservative treatment for CT. Dr. Hernandez drained the pleural fluid via chest tube. On 03/17/19 Dr. Hernandez removed chest tube. Currently having frequent NSVTs on the telemetry. Await PT/OT clearance Cardiac arrhythmias. Sustained vtach this am with frequent NSVTs in Echo only small pericardial effusion given 2 doses of amiodarone ivp, mag and potassium. also on po amiodarone Ischemic cardiomyopathy with Systolic Congestive heart failure with low ejection fraction. Has AICD in place. lisinopril, lasix Echo Shows: . Moderately enlarged left ventricle with preserved left ventricular wall thickness, but with a severely depressed global left ventricular systolic function. The estimated global left ventricular systolic ejection fraction is 20%. Moderately enlarged left atrium. The right atrium also appeared to be enlarged. The right ventricle appeared to be mildly enlarged with decreased right ventricular free wall contraction. Mildly dilated aortic root at 3.9 cm. A small pericardial effusion noted, no evidence of cardiac tamponade. Moderate Mitral regurgitation. Acute NSTEMI Patient declined to be transferred to acute cardiac facility for interventional cardiology Dr. Grant following him Continue beta fredy, asa, statin, xarelto Coronary artery disease, status post coronary artery bypass grafting. continue asa, xarelto, betablocker, statin. Chronic Atrial fibrillation Heart rate is under control betablocker, xarelto. AICD in place Persistent cough seen by pulmonary, no obstruction of th airways. Multifactorial. Mostly like due to a infiltrative process of unkown cause at this point. Not infective. And moderate to severe COPD, suggested vest which patient refused added acapella to EZ PAP. will give mucinex Recurrent pleural effusion on right borderline neither transudative nor exudative. due to lung malignancy vs CHF Dr. Hernandez drained the pleural fluid via pig tail cath. On 03/17/19 Dr. Hernandez removed chest drain. CXR after removal of pig tail with small apical pneumothorax, still has moderate pleural effusion a little more. CXR today a little worse pneumothorax, stable pleural effusion. Non-small cell carcinoma of right lung with mediastinal mass and lymphnodes. Stage IIIB non-small cell poorly differentiated carcinoma, treated with radiatio n and chemotherapy. Currently on Ketruda every 3 weeks. Follow-up with oncologist for prognosis. Moderate to severe COPD will start on budesonide and performist. recommended duonebs followed by Acapella. 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 Peripheral vascular disease. asa, statin Hypertension. lisinopril, coreg, lasix DVT prophylaxis in place. Code DNR and DNI. VS,Fishbone, I+O VS, Fishbone, I+O Laboratory Tests 03/22/19 05:20 Vital Signs Date Time Temp Pulse Resp B/P (MAP) Pulse Ox O2 Delivery O2 Flow Rate FiO2 03/22/19 14:00 95 Nasal Cannula 1.0 03/22/19 12:57 96/51 (66) 03/22/19 12:00 97.1 70 16 I&O- Last 24 Hours up to 6 AM 03/22/19 06:00 Intake Total 1520 ml Output Total 220 ml Balance 1300 ml BROOKE ROBLERO MD Mar 22, 2019 16:02
[2019-03-22] MEDS: RIVAROXABAN 20 MG TAB (XARELTO) PO SCH (17:01)
--- NOTE | 2019-03-22 19:43 | IPN ---
DATE: 03/22/2019 NOTE: Mr. Macedo reports he is unchanged from yesterday. He still has a cough. We added the Acapella yesterday and he does not feel it has been helpful. He occasionally will produce sputum and it is clear. He denies any shortness of breath. No chest pain. No nausea or emesis. He had no difficulty eating. No new events overnight. OBJECTIVE: PHYSICAL EXAMINATION: Mr. Macedo is lying on his back in no acute distress. He answers in short sentences. No cough during my evaluation. VITAL SIGNS: Temperature 97, which is his maximum temperature (T-max), pulse 72, respiratory rate 18, blood pressure 110/66, SpO2 97% on an FiO2 of 1.1 liters. HEENT: Anicteric, nares patent bilaterally. Oropharynx moist mucosa. NECK: Supple, without jugular venous distention (JVD), thyromegaly or masses, trachea is midline. LYMPHATICS: No cervical or supraclavicular lymphadenopathy. CHEST: Increased AP diameter. LUNGS: Symmetric excursion. Good air entry, no wheeze, rhonchi or significant crackle. Diminished breath sounds at the right base. Mildly prolonged expiratory phase. CARDIOVASCULAR: Regular rate and rhythm with a normal S1, S2, no murmur, rub or gallop appreciated. ABDOMEN: Positive bowel sounds, soft, nondistended, no hepatosplenomegaly or masses appreciated. EXTREMITIES: There is no significant edema. Without clubbing or cyanosis. LABORATORY DATA: Complete blood count (CBC) from this morning showed a hemoglobin 11.2, hematocrit 36.8, platelet count 181,000, white blood cell count 5900, with a differential of 80% neutrophils, 6% lymphocytes, 8% monocytes and 4% eosinophils. Chemistry shows sodium 137, potassium 3.7, chloride 94, bicarbonate 38, anion gap 5, BUN 22, creatinine 0.9, glucose 95, calcium 8.6. IMPRESSION: 1. Persistent cough. Etiology is likely multifactorial. His aeration tolerance is secondary to atelectasis or an occlusive endobronchial process. The process involving his left upper lobe may be causing the cough. He has no symptoms to suggest this process is infective. He has underlying chronic obstructive pulmonary disease (COPD) and that may be contributing. 2. COPD, moderately severe, not currently on medication. 3. Coronary artery disease (CAD) with [id number] myocardial infarction (NSTEMI) this admission. 4. Atrial fibrillation with periods of rapid ventricular response. 5. Stage IIIB poorly differentiated non-small cell carcinoma on Keytruda every three weeks. 6. Status post cerebrovascular accident (CVA) with dense left hemiparesis. RECOMMENDATIONS: 1. I spoke to Mr. Macedo regarding restarting COPD medications. I discussed with him that, most particularly, having a bronchodilator before the Acapella may help him with expectoration. 2. I also discussed with him that restarting long-acting agent may help with his cough. 3. Mr. Macedo is not interested in pursuing any pulmonary medications at this time. 4. I had spoken with Dr. Grant prior to speaking with Mr. Macedo and he felt that we could go ahead and start pulmonary medications. 5. I also spoke to Dr. Maira Del Rosario Franco regarding the above conversation with Mr. Macedo. 6. At the present time, I have nothing further to offer. If he is interested in restarting medications, I would recommend using Pulmicort and performance nebulizations, as I do not think he would do well with MDIs, even with a face mask. I would use a DuoNeb prior to the Acapella and every 4 hours as needed. 7. We will sign off for now. Please see recontact pulmonary service if there are further concerns/problems.
[2019-03-22] MEDS: ROSUVASTATIN 10 MG TAB (CRESTOR) PO SCH (20:00)
[2019-03-22] MEDS: FORMOTEROL FUMARATE 20 MCG/2 ML INHALATION SOLUTION (PERFOROMIST) INH SCH (20:56)
[2019-03-22] MEDS: BUDESONIDE 0.5 MG/2 ML INHALATION SUSPENSION INH SCH (20:56)
[2019-03-23] VITALS (19 sets, daily range): BP systolic 92–119; BP diastolic 52–75; O2SAT 92–96
[2019-03-23 06:03] LABS: BASO # 0.1 10^3/uL (0.0-0.2); BASO % 0.9 % (0.0-1.0); EOS # 0.2 10^3/uL (0.0-0.5); HEMATOCRIT 37.6 % (42.0-52.0); HEMOGLOBIN 11.3 g/dl (13.5-17.5); LYMPH # 0.3 10^3/uL (1.5-5.0); LYMPH % 5.8 % (24.0-44.0); MEAN CORPUSCULAR HEMOGLOBIN 26.8 pg (27.0-33.0); MEAN CORPUSCULAR HGB CONC 30.1 g/dl (32.0-36.5); MEAN CORPUSCULAR VOLUME 89.3 fl (80.0-96.0); MONO # 0.4 10^3/uL (0.0-0.8); MONO % 7.7 % (0.0-5.0); NEUTROPHILS # 4.6 10^3/uL (1.5-8.5); NEUTROPHILS % 81.2 % (36.0-66.0); PLATELET COUNT, AUTOMATED 191 10^3/uL (150-450); RED BLOOD COUNT 4.21 10^6/uL (4.30-6.10); WHITE BLOOD COUNT 5.7 10^3/uL (4.0-10.0)
[2019-03-23 06:26] LABS: BLOOD UREA NITROGEN 15 MG/DL (7-18); CALCIUM LEVEL 8.4 MG/DL (8.8-10.2); CARBON DIOXIDE LEVEL 39 MEQ/L (21-32); CHLORIDE LEVEL 94 MEQ/L (98-107); GLOMERULAR FILTRATION RATE > 60.0 (>42); GLUCOSE, FASTING 95 MG/DL (70-100); POTASSIUM SERUM 3.9 MEQ/L (3.5-5.1); SODIUM LEVEL 137 MEQ/L (136-145)
[2019-03-23] MEDS: FORMOTEROL FUMARATE 20 MCG/2 ML INHALATION SOLUTION (PERFOROMIST) INH SCH ×2 (08:20→20:44)
[2019-03-23] MEDS: BUDESONIDE 0.5 MG/2 ML INHALATION SUSPENSION INH SCH ×2 (08:20→20:44)
[2019-03-23] MEDS: lisinopriL 10 MG TAB PO SCH (08:26)
[2019-03-23] MEDS: CARVedilol 6.25 MG TAB PO SCH ×2 (08:26→20:43)
[2019-03-23] MEDS: ASPIRIN 81 MG ENTERIC TAB PO SCH (08:27)
[2019-03-23] MEDS: guaiFENesin ER 600 MG TAB PO SCH ×2 (08:27→20:46)
[2019-03-23] MEDS: OMEPRAZOLE 20 MG CAP PO SCH (08:27)
[2019-03-23] MEDS: SENOKOT S TAB PO SCH ×2 (08:27→20:46)
[2019-03-23] MEDS: SODIUM CHLORIDE 0.9% INJ 10 ML SYR IV SCH (08:28)
[2019-03-23] MEDS: AMIODARONE 200 MG TAB (PACERONE) PO SCH ×2 (08:28→20:46)
[2019-03-23] MEDS: FUROSEMIDE 40 MG TAB PO SCH (08:29)
--- NOTE | 2019-03-23 10:39 | IPNPDOC ---
Text Note Date of Service The patient was seen on 03/23/19. NOTE Subjective: Pateint continues to have NSVTs, had a 40 sec sustained V tach last evening. All oteher sustain v tachs wer in the morning. One episode was for 1min and 30 secs when he complained of dizziness. His AICD did not fire. Rate was at 150. No fever or chills, his breathing is better. did not complain of any cough this morning. He is sitting up in chair comfortable. Objective: VITAL SIGNS: Please see below. GENERAL APPEARANCE: Well-nourished, well-developed, not in apparent distress HEENT: Normocephalic, atraumatic. Mucous members moist and pink, Facial deviatio n to right. Visual impairment. CARDIOVASCULAR: Regular rate and rhythm. Pacemaker in place. Radial pulses are intact LUNGS: Bilateral coarse breath sounds , few wheezes ABDOMEN: Abdomen is soft and nontender. Bowel sounds normal. NEUROLOGICAL: Left hemiparesis. Left upper extremity 1/5 power, lower extremity3/5 power. Speech is not dysarthric, no nuchal rigidity EXTREMITIES: trace bilateral pitting edema Left > right. Chronic venous stasis dermatitis. Labs and radiology: reviewed. Assessment/Plan: Patient 69 years old with past history of CVA, atrial fibrillation, lung cancer was directly transferred to the hospital from [facility] with increased shortness of breath secondary to the right pleural effusion. 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 He had multiple pleuracentesis in the past. Also patient was found to have elevated troponin level 7.6, second troponin was 8.3. Patient denied any chest pain. After discussion with the patient and scrap collector Dr. Grant, transfer to [place] for possible cardiac catheterization was declined by patient. Patient received conservative treatment for RI. Dr. Hernandez drained the pleural fluid via chest tube. On 03/17/19 Dr. Hernandez removed chest tube. Currently having frequent NSVTs on the telemetry. Await PT/OT clearance Cardiac arrhythmias. Sustained vtach this am with frequent NSVTs in Echo only small pericardial effusion given 2 doses of amiodarone ivp, mag and potassium. also on po amiodarone Await any further recommendations from cardiology. Ischemic cardiomyopathy with Systolic Congestive heart failure with low ejection fraction. Has AICD in place. lisinopril, lasix if Bp permits. Echo Shows: . Moderately enlarged left ventricle with preserved left ventricular wall thickness, but with a severely depressed global left ventricular systolic function. The estimated global left ventricular systolic ejection fraction is 20%. Moderately enlarged left atrium. The right atrium also appeared to be enlarged. The right ventricle appeared to be mildly enlarged with decreased right ventricular free wall contraction. Mildly dilated aortic root at 3.9 cm. A small pericardial effusion noted, no evidence of cardiac tamponade. Moderate Mitral regurgitation. Hypotension asymptomatic probably due to systolic CHF. will hold Lasix. Acute NSTEMI Patient declined to be transferred to acute cardiac facility for interventional cardiology Dr. Grant following him Continue beta fredy, asa, statin, xarelto Coronary artery disease, status post coronary artery bypass grafting. continue asa, xarelto, betablocker, statin. Chronic Atrial fibrillation Heart rate is under control betablocker, xarelto. AICD in place Persistent cough seen by pulmonary, no obstruction of th airways. Multifactorial. Mostly like due to a infiltrative process of unkown cause at this point. Not infective. And moderate to severe COPD, suggested vest which patient refused added acapella to EZ PAP. will give mucinex Recurrent pleural effusion on right borderline neither transudative nor exudative. due to lung malignancy vs CHF Dr. Hernandez drained the pleural fluid via pig tail cath. On 03/17/19 Dr. Hernandez removed chest drain. CXR after removal of pig tail with small apical pneumothorax, still has moderate pleural effusion a little more. CXR today a little worse pneumothorax, stable pleural effusion. Non-small cell carcinoma of right lung with mediastinal mass and lymphnodes. 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 Currently on Ketruda every 3 weeks. Follow-up with oncologist for prognosis. Moderate to severe COPD on budesonide and performist. recommended duonebs followed by Acapella. Patient did not want the duonebs. 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 Peripheral vascular disease. asa, statin Hypertension. lisinopril, coreg, lasix DVT prophylaxis in place. Code DNR and DNI. Dispo: home. After cardiology clearance for discharge in view of his sustained VTs yesterday. VS,Fishbone, I+O VS, [place], I+O Laboratory Tests 03/23/19 05:33 Vital Signs Date Time Temp Pulse Resp B/P (MAP) Pulse Ox O2 Delivery O2 Flow Rate FiO2 03/23/19 08:26 92/58 03/23/19 08:00 97.0 62 24 93 Nasal Cannula 1.0 I&O- Last 24 Hours up to 6 AM 03/23/19 06:00 Intake Total 1400 ml Output Total 625 ml Balance 775 ml BROOKE ROBLERO MD Mar 23, 2019 10:39
--- NOTE | 2019-03-23 12:32 | IPN ---
DATE: Mr. Macedo is about the same even though he reports that his shortness of breath might be little worse today than it was yesterday. No chest pain. No sensation of palpitations. Unfortunately, yesterday he had two episodes of sustained ventricular tachycardia. The heart rate was not very fast, about 150 beats per minute and both episodes terminated spontaneously. Vital signs this morning: Blood pressure 92/58, heart rate has been mostly in 60s and 70s, principally atrial fibrillation with biventricular pacing. Saturation is 93-95% on 1 liter of oxygen. He is alert and oriented. His JVP does not look high. Lungs are diminished on the right base; clear above, clear on the left side. Heart: Exam reveals regular rhythm. I do not appreciate any distinct gallop. There is faint murmur at the apex. Abdomen: Soft without tenderness, rebound tenderness. Extremities are free of edema. He continues to have dense left-sided hemiparesis more prominent on the upper extremity that is essentially plegic. LABORATORY Basic metabolic panel: Sodium 137, potassium 3.9, BUN 15, creatinine 0.89 and glucose 95. CBC: Hemoglobin 11.3, hematocrit 37, white count 191,000 ASSESSMENT/PLAN Mr. Macedo is a 69-year-old man who has multiple medical problems including chronic atrial fibrillation, ischemic cardiomyopathy with severe left ventricular systolic dysfunction, stage III ivm-dokim-ijal lung cancer that has been treated lately with Keytruda. He initially presented with right-sided pleural effusion and fai-PS-rovgitely myocardial infarction (NSTEMI). With conservative management he has not had any recurrent chest discomfort, even initially the chest discomfort seemed to be associated only while he was coughing. But he unfortunately continues to have runs of nonsustained ventricular tachycardia. He was initially given few doses of IV amiodarone, has been on amiodarone since. I believe that it is likely that he will keep having episodes as the full effect of amiodarone usually is not present only after at least 3 or 4 weeks. He is DO NOT INTUBATE (DNI), DO NOT RESUSCITATE (DNR) but when I had discussion with him about turning off his ICD he does not want to get this done yet. He was not shocked for his VT because it is relatively slow. Unfortunately, his overall prognosis is poor on account of numerous medical conditions most of which are not ultimately treatable. But because the lung cancer, even though very advanced has been relatively stable, he will continue current management. The question of discharge home is complicated by his social situation. Seems to me that his is rather exhausted and hopefully I will have a chance to talk to her today. I am of the opinion that she probably will need some help. Otherwise, I do not have much else new to bring to the table.
[2019-03-23] MEDS: RIVAROXABAN 20 MG TAB (XARELTO) PO SCH (17:39)
[2019-03-23] MEDS: ACETAMINOPHEN TAB 650MG DOSE (2X325MG) PO PRN (18:42)
[2019-03-23] MEDS: ROSUVASTATIN 10 MG TAB (CRESTOR) PO SCH (20:46)
[2019-03-24] VITALS (7 sets, daily range): BP systolic 93–124; BP diastolic 50–80
[2019-03-24] MEDS ORDERED: MORPHINE 2 MG/ML 1ML VIAL (J2270) As Ordered ONE (04:47)
[2019-03-24] MEDS ORDERED: AMIODARONE HCL 150 MG in IV 1 EA IV STA (04:56)
--- NOTE | 2019-03-24 05:08 | IPNPDOC ---
Text Note Date of Service The patient was seen on 03/24/19. NOTE I was called to the bedside urgently to assess Mr. Macedo for 3 minutes of sustained V Tach. He says he can feel his heart racing and is somewhat short of breath, his breathlessness bothers him the most. He is pale, with a rapid heart rate between 160-180. He was given 2mg morphine IV for his dyspnea. Dr. Grant was consulted, and recommended 150 mg amiodarone IV. EKG and electrolytes were ordered. EKG: ventricularly paced with PVCs. VS,Fishbone, I+O VS, Fishbone, I+O Laboratory Tests 03/23/19 05:33 Vital Signs Date Time Temp Pulse Resp B/P (MAP) Pulse Ox O2 Delivery O2 Flow Rate FiO2 03/24/19 00:00 97.3 62 18 104/52 (69) 93 Room Air 03/23/19 08:00 1.0 I&O- Last 24 Hours up to 6 AM 03/24/19 06:00 Intake Total 220 ml Output Total 525 ml Balance -305 ml GME ATTESTATION GME ATTESTATION My faculty preceptor for this patient encounter was physically present during the encounter and was fully available. All aspects of the patient interview, examination, medical decision making process, and medical care plan development were reviewed and approved by the faculty preceptor. The faculty preceptor is aware and concurs with the plan as stated in the body of this note and will attest to such by his/her cosignature. KAROLYN KAUFFMAN D.O. Mar 24, 2019 05:08
[2019-03-24] MEDS: MORPHINE 2 MG/ML 1ML VIAL (J2270) IV PRN (05:19)
[2019-03-24 05:41] LABS: BASO # 0.1 10^3/uL (0.0-0.2); BASO % 1.1 % (0.0-1.0); EOS # 0.2 10^3/uL (0.0-0.5); EOS % 3.4 % (0.0-3.0); HEMATOCRIT 36.6 % (42.0-52.0); HEMOGLOBIN 11.3 g/dl (13.5-17.5); LYMPH # 0.3 10^3/uL (1.5-5.0); LYMPH % 5.9 % (24.0-44.0); MEAN CORPUSCULAR HEMOGLOBIN 27.1 pg (27.0-33.0); MEAN CORPUSCULAR HGB CONC 30.9 g/dl (32.0-36.5); MEAN CORPUSCULAR VOLUME 87.8 fl (80.0-96.0); MONO # 0.4 10^3/uL (0.0-0.8); MONO % 7.7 % (0.0-5.0); NEUTROPHILS # 4.6 10^3/uL (1.5-8.5); NEUTROPHILS % 81.4 % (36.0-66.0); PLATELET COUNT, AUTOMATED 198 10^3/uL (150-450); RED BLOOD COUNT 4.17 10^6/uL (4.30-6.10); WHITE BLOOD COUNT 5.6 10^3/uL (4.0-10.0)
--- NOTE | 2019-03-24 05:48 | ECGEPIP ---
[facility] Test Date: 2019-03-24 Pat Name: KARTHIK SOSA Department: Room: [place] [address] Gender: Male Digester Hand: : 1950 Requested By: KAROLYN KAUFFMAN D.O. Order Number: [id number] Reading MD: Angelina Lundy Measurements Intervals [place] Rate: 72 P: [place]: 0 QRS: 131 QRSD: 244 T: -36 QT: 534 QTc: 588 Interpretive Statements PROBABLE UNDERLYING A FIB PVCS NOT SENSED ELECTRONIC VENTRICULAR PACEMAKER -- INDETERMINATE AXIS NO PRIOR Electronically Signed on 03-24-2019 5:47:42 EST by Angelina Lundy
[2019-03-24 05:59] LABS: BLOOD UREA NITROGEN 13 MG/DL (7-18); CALCIUM LEVEL 8.5 MG/DL (8.8-10.2); CARBON DIOXIDE LEVEL 36 MEQ/L (21-32); CHLORIDE LEVEL 95 MEQ/L (98-107); CK-MB VALUE MASS < 1.0 NG/ML (<3.6); CPK CREATINE PHOSPHOKINASE 73 U/L (39-308); CREATININE FOR GFR 0.74 MG/DL (0.70-1.30); GLOMERULAR FILTRATION RATE > 60.0 (>42); GLUCOSE, FASTING 96 MG/DL (70-100); MB/CK RELATIVE INDEX 1.37 (< OR =4); POTASSIUM SERUM 3.6 MEQ/L (3.5-5.1); SODIUM LEVEL 136 MEQ/L (136-145)
[2019-03-24 06:56] LABS: TROPONIN I 0.79 NG/ML (< 0.10)
[2019-03-24] MEDS: FORMOTEROL FUMARATE 20 MCG/2 ML INHALATION SOLUTION (PERFOROMIST) INH SCH ×2 (07:13→20:59)
[2019-03-24] MEDS: BUDESONIDE 0.5 MG/2 ML INHALATION SUSPENSION INH SCH ×2 (07:14→20:59)
[2019-03-24] MEDS: lisinopriL 10 MG TAB PO SCH (09:00)
[2019-03-24] MEDS: SENOKOT S TAB PO SCH ×2 (09:00→21:09)
[2019-03-24] MEDS: OMEPRAZOLE 20 MG CAP PO SCH (09:27)
[2019-03-24] MEDS: guaiFENesin ER 600 MG TAB PO SCH ×2 (09:27→21:09)
[2019-03-24] MEDS: FUROSEMIDE 40 MG TAB PO SCH (09:28)
[2019-03-24] MEDS: CARVedilol 6.25 MG TAB PO SCH ×2 (09:28→21:00)
[2019-03-24] MEDS: ASPIRIN 81 MG ENTERIC TAB PO SCH (09:28)
[2019-03-24] MEDS: AMIODARONE 200 MG TAB (PACERONE) PO SCH ×2 (09:28→21:09)
[2019-03-24] MEDS: SODIUM CHLORIDE 0.9% INJ 10 ML SYR IV SCH (09:29)
[2019-03-24] MEDS ORDERED: POTASSIUM CHLORIDE 10 MEQ SR TABLET PO ONE (11:00)
--- NOTE | 2019-03-24 11:36 | IPN ---
DATE: 03/24/2019 Mr. Macedo had several runs of nonsustained ventricular tachycardia earlier this morning. He did not get defibrillated because the duration was always very brief even though there were in close succession. Since that time he got an additional 150 mg of IV amiodarone and I gave him potassium supplementation. Currently on telemetry, he continues to have principally ventricularly paced rhythm with frequent ventricular ectopy. I actually interrogated his implantable cardioverter defibrillator (ICD) to make sure that we did not miss any sustained episodes but review of the events truly confirms that he had multiple brief runs, usually only 3-6 seconds duration. He has no awareness other than he is getting anxious by the nursing staff being visibly nervous about his events. He complains about ongoing cough and he also feels a little more short of breath. Overall, I think that he started to realize that the condition is not improving. Blood pressure 113/80, heart rate principally 60s and 70s atrial fibrillation with ventricular pacing and frequent ventricular ectopy as above. He is afebrile. Saturation 94-97% on 2 liters of oxygen. Weight is recorded 100.2. He is alert and oriented. His jugular venous pulse (JVP) does not look high. Lungs are still clear on the left. On the right they are diminished about one-third of the way up. No wheezing, no crackles. Heart: Exam reveals regular rhythm. There is murmur at the apex fairly faint. I do not appreciate a rub or gallop. Abdomen is soft. Extremities are free of edema. His neurologic condition has not changed. He has ongoing dense left-sided hemiparesis almost plegia. LABORATORY: Hemoglobin 11.2, hematocrit 36, platelet count 198,000 date. Basic metabolic panel: Sodium 136, potassium 3.62, BUN 13, creatinine 0.7, glucose 96, magnesium 2.0 and Troponin I was 0.8 ASSESSMENT/PLAN: Mr. Macedo is a 69-year-old man who has multitude of problems that include coronary artery disease, history of coronary artery bypass graft (CABG) and numerous coronary interventions, severe ischemic cardiomyopathy, chronic atrial fibrillation with ICD in place. He also has stage III mzf-ifgia-mzvs lung cancer, status post chemotherapy currently on Keytruda management. He presented with Ocz-SX-pjduhpkmp myocardial infarction (NSTEMI) and right-sided pleural effusion. He initially did reasonably well after the fluid was drained but now he seems to have increasing frequency of brief runs of nonsustained ventricular tachycardia (VT). Even though he does not have any other ischemic symptoms, I suspect that this is driven by his cardiomyopathy. Nevertheless, I do not believe he is a candidate for additional intervention. At his last cardiac catheterization, he received a total five stents to left main to left anterior descending (LAD) all the way to diagonal. He had patent left internal mammary artery (TERRELL) and patent graft to right coronary artery (RCA). I believe that even if he has coronary angiography, the likelihood of revascularization is rather negligible. He certainly did not lose TERRELL, which would have been fatal. But if he lost graft to RCA or occluded his stents due to extend of the disease, it is very unlikely that he could be revascularized. As far as the VT is concerned, I am going to intensify his congestive heart failure (CHF) therapy even though I do not appreciate any distinct volume overload. He tends to run potassium on the low end of normal and I am going to add spironolactone to his regimen to raise it a little bit higher. His blood pressure is also little bit better so he probably could tolerate low-dose angiotensin converting enzyme inhibitors (SUGEY) inhibitor or angiotension receptor fredy (ARB) even though in previous days, he tended to be rather hypotensive. Overall his prognosis is certainly poor. The same is the case for quality of life. He still is not open to comfort care. He still wants his defibrillator to stay turned on. But I do believe it would be appropriate to take him off telemetry. He is not bothered by his episodes of nonsustained VT. He is DO NOT INTUBATE, DO NOT RESUSCITATE and the defibrillator is in place. NOBLE
--- NOTE | 2019-03-24 11:58 | REP ---
Clinical: Pleural effusion. Technique: AP and lateral. Comparison: 03/21/2019. Findings: Moderate right pleural effusion again noted. Diffuse bilateral acute on chronic pleuroparenchymal changes are relatively unchanged. Mediastinum and cardiac silhouette are stable including suspected right hilar mass, adenopathy, evidence of prior sternotomy and Rkflua-Z-Fdus position. Skeletal structures stable. Impression: 1. Moderate right pleural effusion similar to prior examination Electronically Signed by Abiodun Hendricks MD 03/24/2019 11:50 A
[2019-03-24] MEDS: SPIRONOLACTONE 25 MG TAB PO SCH (13:18)
[2019-03-24] MEDS: RIVAROXABAN 20 MG TAB (XARELTO) PO SCH (18:50)
[2019-03-24] MEDS: ROSUVASTATIN 10 MG TAB (CRESTOR) PO SCH (21:09)
[2019-03-25 05:56] LABS: BASO # 0.1 10^3/uL (0.0-0.2); BASO % 0.9 % (0.0-1.0); EOS # 0.2 10^3/uL (0.0-0.5); EOS % 3.2 % (0.0-3.0); HEMATOCRIT 38.4 % (42.0-52.0); LYMPH # 0.4 10^3/uL (1.5-5.0); LYMPH % 5.6 % (24.0-44.0); MEAN CORPUSCULAR HEMOGLOBIN 27.4 pg (27.0-33.0); MEAN CORPUSCULAR HGB CONC 31.3 g/dl (32.0-36.5); MEAN CORPUSCULAR VOLUME 87.7 fl (80.0-96.0); MONO # 0.5 10^3/uL (0.0-0.8); NEUTROPHILS # 5.4 10^3/uL (1.5-8.5); NEUTROPHILS % 82.7 % (36.0-66.0); PLATELET COUNT, AUTOMATED 198 10^3/uL (150-450); RED BLOOD COUNT 4.38 10^6/uL (4.30-6.10); WHITE BLOOD COUNT 6.6 10^3/uL (4.0-10.0)
[2019-03-25 06:00] VITALS: BP 94/50
[2019-03-25 06:16] LABS: BLOOD UREA NITROGEN 13 MG/DL (7-18); CALCIUM LEVEL 8.7 MG/DL (8.8-10.2); CARBON DIOXIDE LEVEL 34 MEQ/L (21-32); CHLORIDE LEVEL 96 MEQ/L (98-107); CREATININE FOR GFR 0.78 MG/DL (0.70-1.30); GLOMERULAR FILTRATION RATE > 60.0 (>42); GLUCOSE, FASTING 96 MG/DL (70-100); SODIUM LEVEL 136 MEQ/L (136-145)
[2019-03-25] MEDS: FORMOTEROL FUMARATE 20 MCG/2 ML INHALATION SOLUTION (PERFOROMIST) INH SCH ×2 (08:08→18:30)
[2019-03-25] MEDS: BUDESONIDE 0.5 MG/2 ML INHALATION SUSPENSION INH SCH ×2 (08:08→18:30)
[2019-03-25] MEDS: POTASSIUM CHLORIDE 10 MEQ SR TABLET PO SCH (08:55)
[2019-03-25] MEDS: ASPIRIN 81 MG ENTERIC TAB PO SCH (08:55)
[2019-03-25] MEDS: guaiFENesin ER 600 MG TAB PO SCH ×2 (08:55→20:47)
[2019-03-25] MEDS: SENOKOT S TAB PO SCH ×2 (08:56→20:47)
[2019-03-25] MEDS: OMEPRAZOLE 20 MG CAP PO SCH (08:56)
[2019-03-25] MEDS: SODIUM CHLORIDE 0.9% INJ 10 ML SYR IV SCH (08:57)
[2019-03-25] MEDS: lisinopriL 10 MG TAB PO SCH (09:00)
[2019-03-25] MEDS: CARVedilol 6.25 MG TAB PO SCH ×2 (09:00→20:37)
[2019-03-25] MEDS: FUROSEMIDE 40 MG TAB PO SCH (09:00)
[2019-03-25] MEDS: SPIRONOLACTONE 25 MG TAB PO SCH (09:03)
[2019-03-25] MEDS: AMIODARONE 200 MG TAB (PACERONE) PO SCH ×2 (09:03→20:47)
[2019-03-25 09:05] VITALS: BP 98/64
--- NOTE | 2019-03-25 12:29 | IPNPDOC ---
Text Note Date of Service The patient was seen on 03/24/19. NOTE Subjective: Having sustained and nonsustained V tach persistently. Patient very tired and somnolent this morning. 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 Objective: VITAL SIGNS: Please see below. GENERAL APPEARANCE: Well-nourished, well-developed, not in apparent distress HEENT: Normocephalic, atraumatic. Mucous members moist and pink, Facial deviation to right. Visual impairment. CARDIOVASCULAR: Regular rate and rhythm. Pacemaker in place. Radial pulses are intact LUNGS: Bilateral coarse breath sounds , few wheezes ABDOMEN: Abdomen is soft and nontender. Bowel sounds normal. NEUROLOGICAL: Left hemiparesis. Left upper extremity 1/5 power, lower extremity3/5 power. Speech is not dysarthric, no nuchal rigidity EXTREMITIES: trace bilateral pitting edema Left > right. Chronic venous stasis dermatitis. Labs and radiology: reviewed. Assessment/Plan: Patient 69 years old with past history of CVA, atrial fibrillation, lung cancer was directly transferred to the hospital from [facility] with increased shortness of breath secondary to the right pleural effusion. 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 He had multiple pleuracentesis in the past. Also patient was found to have elevated troponin level 7.6, second troponin was 8.3. Patient denied any chest pain. After discussion with the patient and web designer developer Dr. Grant, transfer to [facility] for possible cardiac catheterization was declined by patient. Patient received conservative treatment for TN. Dr. Hernandez drained the pleural fluid via chest tube. On 03/17/19 Dr. Hernandez removed chest tube. Currently having frequent NSVTs on the telemetry. Await PT/OT clearance Cardiac arrhythmias. Sustained vtachs and frequent NSVTs in Echo only small pericardial effusion gotten IV amiodarone again this am. also on po amiodarone Await any further recommendations from cardiology. Ischemic cardiomyopathy with Systolic Congestive heart failure with low ejection fraction. Has AICD in place. lisinopril, lasix if Bp permits. Echo Shows: . Moderately enlarged left ventricle with preserved left ventr icular wall thickness, but with a severely depressed global left ventricular systolic function. The estimated global left ventricular systolic ejection fraction is 20%. Moderately enlarged left atrium. The right atrium also appeared to be enlarged. The right ventricle appeared to be mildly enlarged with decreased right ventricular free wall contraction. Mildly dilated aortic root at 3.9 cm. A small pericardial effusion noted, no evidence of cardiac tamponade. Moderate Mitral regurgitation. Hypotension asymptomatic probably due to systolic CHF. Acute NSTEMI with frequent cardiac arrhythmias. Patient declined to be transferred to acute cardiac facility for interventional cardiology Dr. Grant following him Continue beta fredy, asa, statin, xarelto Coronary artery disease, status post coronary artery bypass grafting. continue asa, xarelto, betablocker, statin. Chronic Atrial fibrillation Heart rate is under control betablocker, xarelto. AICD in place Persistent cough seen by pulmonary, no obstruction of th airways. Multifactorial. Mostly like due to a infiltrative process of unkown cause at this point. Not infective. And moderate to severe COPD, suggested vest which patient refused added acapella to EZ PAP. will give mucinex Recurrent pleural effusion on right borderline neither transudative nor exudative. due to lung malignancy vs CHF Dr. Hernandez drained the pleural fluid via pig tail cath. On 03/17/19 Dr. Hernandez removed chest drain. CXR after removal of pig tail with small apical pneumothorax, still has moderate pleural effusion a little more. CXR today a little worse pneumothorax, stable pleural effusion. Non-small cell carcinoma of right lung with mediastinal mass and lymphnodes. 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 Currently on Ketruda every 3 weeks. Follow-up with oncologist for prognosis. Moderate to severe COPD on budesonide and performist. recommended duonebs followed by [facility]. Patient did not want the duonebs. 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 Peripheral vascular disease. asa, statin Hypertension. lisinopril, coreg, lasix DVT prophylaxis in place. Code DNR and DNI. Dispo: home. After cardiology clearance for discharge in view of his sustained VTs yesterday. VS,Fishbone, I+O VS, Fishbone, I+O Laboratory Tests 03/24/19 05:16 Vital Signs Date Time Temp Pulse Resp B/P (MAP) Pulse Ox O2 Delivery O2 Flow Rate FiO2 03/24/19 09:28 70 113/80 03/24/19 08:00 97.7 20 94 Room Air 03/24/19 04:50 2.0 I&O- Last 24 Hours up to 6 AM 03/24/19 06:00 Intake Total 220 ml Output Total 525 ml Balance -305 ml BROOKE ROBLERO MD Mar 24, 2019 09:58
--- NOTE | 2019-03-25 12:47 | IPNPDOC ---
Text Note Date of Service The patient was seen on 03/25/19. NOTE Subjective: No issues overnight. Has intermittent SOB. Still very weak. He says he does not want to go to rehab. Denies any chest pain or dizziness of lght headedness. concerned about whether he is able to get out of bed and walk to bathroom or not and he has 6 stairs inside the house. PT had cleared him on Monday however will ask them to reevaluate again today. Objective: VITAL SIGNS: Please see below. GENERAL APPEARANCE: Well-nourished, well-developed, not in apparent distress HEENT: Normocephalic, atraumatic. Mucous members moist and pink, Facial deviation to right. Visual impairment. CARDIOVASCULAR: Regular rate and rhythm. Pacemaker in place. Radial pulses are intact LUNGS: Bilateral coarse breath sounds , few wheezes ABDOMEN: Abdomen is soft and nontender. Bowel sounds normal. NEUROLOGICAL: Left hemiparesis. Left upper extremity 1/5 power, lower e xtremity3/5 power. Speech is not dysarthric, no nuchal rigidity EXTREMITIES: trace bilateral pitting edema Left > right. Chronic venous stasis dermatitis. Labs and radiology: reviewed. Assessment/Plan: Patient 69 years old with past history of CVA, atrial fibrillation, lung cancer was directly transferred to the hospital from [facility] with increased shortness of breath secondary to the right pleural effusion. 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 He had multiple pleuracentesis in the past. Also patient was found to have elevated troponin level 7.6, second troponin was 8.3. Patient denied any chest pain. After discussion with the patient and program management manager Dr. Grant, transfer to [facility] for possible cardiac catheterization was declined by patient. Patient received conservative treatment for NM. Dr. Hernandez drained the pleural fluid via chest tube. On 03/17/19 Dr. Hernandez removed chest tube. Currently having frequent NSVTs on the telemetry. Await PT/OT clearance Cardiac arrhythmias. Sustained vtachs and frequent NSVTs was seen in Telemetry As per cardio this will probably continue and he has AICD so was ok to take off tele and plan for dc home. in Echo only small pericardial effusion continue po amiodarone Await any further recommendations from cardiology. Ischemic cardiomyopathy with Systolic Congestive heart failure with low ejection fraction. Has AICD in place. lisinopril, lasix if Bp permits. Echo Shows: . Moderately enlarged left ventricle with preserved left ventricular wall thickness, but with a severely depressed global left ventricular systolic function. The estimated global left ventricular systolic ejection fraction is 20%. Moderately enlarged left atrium. The right atrium also appeared to be enlarged. The right ventricle appeared to be mildly enlarged with decreased right ventricular free wall contraction. Mildly dilated aortic root at 3.9 cm. A small pericardial effusion noted, no evidence of cardiac tamponade. Moderate Mitral regurgitation. Hypotension intermittent asymptomatic probably due to systolic CHF. Acute NSTEMI with frequent cardiac arrhythmias. Patient declined to be transferred to acute cardiac facility for interventional cardiology Continue beta fredy, asa, statin, xarelto Coronary artery disease, status post coronary artery bypass grafting. continue asa, xarelto, betablocker, statin. Chronic Atrial fibrillation Heart rate is under control betablocker, xarelto. AICD in place Persistent cough seen by pulmonary, no obstruction of th airways. Multifactorial. Mostly like due to a infiltrative process of unkown cause at this point. Not infective. And moderate to severe COPD, suggested vest which patient refused added acapella to EZ PAP, mucinex Recurrent pleural effusion on right still with some remaining. borderline neither transudative nor exudative. due to lung malignancy vs CHF Dr. Hernandez drained the pleural fluid via pig tail cath. On 03/17/19 Dr. Hernandez removed chest drain. CXR after removal of pig tail with small apical pneumothorax, still has moderate pleural effusion stable. Non-small cell carcinoma of right lung with mediastinal mass and lymphnodes. 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 Currently on Ketruda every 3 weeks. Follow-up with oncologist Moderate to severe COPD on budesonide and performist. recommended duonebs followed by [facility]. Patient did not want the duonebs. 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 Peripheral vascular disease. asa, statin Hypertension. lisinopril, coreg, lasix DVT prophylaxis in place. Code DNR and DNI. Dispo: home with services in the next 24 hours VS,Mert, I+O VS, Mert, I+O Laboratory Tests 03/25/19 05:42 Vital Signs Date Time Temp Pulse Resp B/P (MAP) Pulse Ox O2 Delivery O2 Flow Rate FiO2 03/25/19 10:00 92 Room Air 03/25/19 09:05 70 98/64 (75) 2.0 03/25/19 06:00 97.7 20 I&O- Last 24 Hours up to 6 AM 03/25/19 05:59 Intake Total 360 ml Output Total 700 ml Balance -340 ml RBOOKE ROBLERO MD Mar 25, 2019 12:47
[2019-03-25 14:00] VITALS: BP 118/72
[2019-03-25] MEDS: RIVAROXABAN 20 MG TAB (XARELTO) PO SCH (17:17)
[2019-03-25] MEDS: ROSUVASTATIN 10 MG TAB (CRESTOR) PO SCH (20:47)
[2019-03-25] MEDS: MORPHINE 2 MG/ML 1ML VIAL (J2270) IV PRN (20:48)
[2019-03-25] MEDS: SODIUM CHLORIDE 0.9% INJ 10 ML SYR IV PRN (20:49)
[2019-03-25 22:00] VITALS: BP 110/50
[2019-03-26] MEDS: RAMELTEON 8 MG TAB (ROZEREM) PO SCH ×2 (03:14→21:54)
[2019-03-26 06:00] VITALS: BP 104/68
[2019-03-26] MEDS: FORMOTEROL FUMARATE 20 MCG/2 ML INHALATION SOLUTION (PERFOROMIST) INH SCH ×2 (07:46→20:11)
[2019-03-26] MEDS: BUDESONIDE 0.5 MG/2 ML INHALATION SUSPENSION INH SCH ×2 (07:46→20:11)
[2019-03-26] MEDS: CARVedilol 6.25 MG TAB PO SCH ×2 (09:00→21:55)
[2019-03-26] MEDS: lisinopriL 10 MG TAB PO SCH (09:00)
[2019-03-26] MEDS: FUROSEMIDE 40 MG TAB PO SCH (09:00)
[2019-03-26] MEDS: AMIODARONE 200 MG TAB (PACERONE) PO SCH ×2 (10:15→21:55)
[2019-03-26] MEDS: guaiFENesin ER 600 MG TAB PO SCH ×2 (10:15→21:54)
[2019-03-26] MEDS: SENOKOT S TAB PO SCH ×2 (10:16→21:54)
[2019-03-26] MEDS: OMEPRAZOLE 20 MG CAP PO SCH (10:16)
[2019-03-26] MEDS: ASPIRIN 81 MG ENTERIC TAB PO SCH (10:16)
[2019-03-26] MEDS: SPIRONOLACTONE 25 MG TAB PO SCH (10:16)
[2019-03-26] MEDS: POTASSIUM CHLORIDE 10 MEQ SR TABLET PO SCH (10:17)
[2019-03-26] MEDS: SODIUM CHLORIDE 0.9% INJ 10 ML SYR IV SCH (10:18)
--- NOTE | 2019-03-26 10:34 | IPNPDOC ---
Text Note Date of Service The patient was seen on 03/26/19. NOTE Subjective: Patient noted sitting up in recliner. Did walk with pT yesterday. However as per nursing staff needs 2 assist to move to the chair. As per PT they are going to try stairs today. Has SOB chronically on minor exertion not any worse than before. Objective: VITAL SIGNS: Please see below. GENERAL APPEARANCE: Well-nourished, well-developed, not in apparent distress HEENT: Normocephalic, atraumatic. Mucous members moist and pink, Facial deviation to right. Visual impairment. CARDIOVASCULAR: Regular rate and rhythm. Pacemaker in place. Radial pulses are intact LUNGS: Bilateral coarse breath sounds , few wheezes ABDOMEN: Abdomen is soft and nontender. Bowel sounds normal. NEUROLOGICAL: Left hemiparesis. Left upper extremity 1/5 power, lower extremity3/5 power. Speech is not dysarthric, no nuchal rigidity EXTREMITIES: trace bilateral pitting edema Left > right. Chronic venous stasis dermatitis. Labs and radiology: reviewed. Assessment/Plan: Patient 69 years old with past history of CVA, atrial fibrilla tion, lung cancer was directly transferred to the hospital from [facility] with increased shortness of breath secondary to the right pleural effusion. 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 He had multiple pleuracentesis in the past. Also patient was found to have elevated t roponin level 7.6, second troponin was 8.3. Patient denied any chest pain. 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 Grant, transfer to [place] for possible cardiac catheterization was declined by patient. Patient received conservative treatment for NH. Dr. Hernandez drained the pleural fluid via chest tube. On 03/17/19 Dr. Hernandez removed chest tube. Currently having frequent NSVTs on the telemetry. Await PT/OT clearance Cardiac arrhythmias. Sustained vtachs and frequent NSVTs was seen in Telemetry As per cardio this will probably continue and he has AICD so was ok to take off tele and plan for dc home. continue po amiodarone 400 bid on discharge x 1 month follow up with Dr Grant in 2 weeks after discharge. Ischemic cardiomyopathy with Systolic Congestive heart failure with low ejection fraction. Has AICD in place. lisinopril, lasix if Bp permits. Echo Shows: . Moderately enlarged left ventricle with preserved left ventricular wall thickness, but with a severely depressed global left ventricular systolic function. The estimated global left ventricular systolic ejection fraction is 20%. Moderately enlarged left atrium. The right atrium also appeared to be enlarged. The right ventricle appeared to be mildly enlarged with decreased right ventricular free wall contraction. Mildly dilated aortic root at 3.9 cm. A small pericardial effusion noted, no evidence of cardiac tamponade. Moderate Mitral regurgitation. Hypotension intermittent asymptomatic probably due to systolic CHF. Acute NSTEMI with frequent cardiac arrhythmias. Patient declined to be transferred to acute cardiac facility for interventional cardiology Continue beta fredy, asa, statin, xarelto Persistent cough seen by pulmonary, no obstruction of th airways. Multifactorial. Mostly like due to a infiltrative process of unkown cause at this point. Not infective. And moderate to severe COPD, suggested vest which patient refused added acapella to EZ PAP, mucinex Recurrent pleural effusion on right still with some remaining. borderline neither transudative nor exudative. due to lung malignancy vs CHF Dr. Hernandez drained the pleural fluid via pig tail cath. On 03/17/19 Dr. Hernandez removed chest drain. CXR after removal of pig tail with small apical pneumothorax, still has moderate pleural effusion stable. Non-small cell carcinoma of right lung with mediastinal mass and lymphnodes. 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 Currently on Ketruda every 3 weeks. Follow-up with oncologist Moderate to severe COPD on budesonide and performist. recommended duonebs followed by [facility]. Patient did not want the duonebs. Coronary artery disease, status post coronary artery bypass grafting. continue asa, xarelto, betablocker, statin. Chronic Atrial fibrillation Heart rate is under control betablocker, xarelto. 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 Peripheral vascular disease. asa, statin Hypertension. lisinopril, coreg, lasix DVT prophylaxis in place. Code DNR and DNI. Dispo: home with services when cleared by PT. VS,Fishbone, I+O VS, Fishbone, I+O Vital Signs Date Time Temp Pulse Resp B/P (MAP) Pulse Ox O2 Delivery O2 Flow Rate FiO2 03/26/19 09:00 104/68 03/26/19 09:00 69 03/26/19 06:00 97.4 20 96 Room Air 03/25/19 09:05 2.0 I&O- Last 24 Hours up to 6 AM 03/26/19 06:00 Intake Total 660 ml Output Total 650 ml Balance 10 ml BROOKE ROBLERO MD Mar 26, 2019 10:30
[2019-03-26 14:00] VITALS: BP 106/62
[2019-03-26] MEDS: RIVAROXABAN 20 MG TAB (XARELTO) PO SCH (16:56)
[2019-03-26] MEDS: ROSUVASTATIN 10 MG TAB (CRESTOR) PO SCH (21:54)
[2019-03-26 22:00] VITALS: BP 132/80
[2019-03-27 06:00] VITALS: BP 114/69
[2019-03-27] MEDS: BUDESONIDE 0.5 MG/2 ML INHALATION SUSPENSION INH SCH (07:24)
[2019-03-27] MEDS: FORMOTEROL FUMARATE 20 MCG/2 ML INHALATION SOLUTION (PERFOROMIST) INH SCH (07:25)
[2019-03-27] MEDS: guaiFENesin ER 600 MG TAB PO SCH (09:36)
[2019-03-27] MEDS: POTASSIUM CHLORIDE 10 MEQ SR TABLET PO SCH (09:36)
[2019-03-27] MEDS: OMEPRAZOLE 20 MG CAP PO SCH (09:36)
[2019-03-27] MEDS: ASPIRIN 81 MG ENTERIC TAB PO SCH (09:37)
[2019-03-27] MEDS: SENOKOT S TAB PO SCH (09:38)
[2019-03-27] MEDS: AMIODARONE 200 MG TAB (PACERONE) PO SCH (09:38)
[2019-03-27] MEDS: lisinopriL 10 MG TAB PO SCH (09:38)
[2019-03-27 09:39] VITALS: BP 117/61
[2019-03-27] MEDS: FUROSEMIDE 40 MG TAB PO SCH (09:39)
[2019-03-27] MEDS: CARVedilol 6.25 MG TAB PO SCH (09:39)
[2019-03-27] MEDS: SODIUM CHLORIDE 0.9% INJ 10 ML SYR IV SCH (09:40)
[2019-03-27] MEDS: SPIRONOLACTONE 25 MG TAB PO SCH (09:40)
[2019-03-27] MEDS ORDERED: ASPI81TAEC PO (10:55)
[2019-03-27] MEDS ORDERED: BISA10SU PR (10:55)
[2019-03-27] MEDS ORDERED: SENN-52 PO (10:55)
[2019-03-27] MEDS ORDERED: LISI10TA4 PO (10:55)
[2019-03-27] MEDS ORDERED: ALDA25TA2 PO (10:55)
[2019-03-27] MEDS ORDERED: MUCI600T31 PO (10:55)
[2019-03-27] MEDS ORDERED: KLOR10TA76 PO (10:55)
[2019-03-27] MEDS ORDERED: AMIO200T PO (10:55)
[2019-03-27] MEDS ORDERED: RAME8TAB2 PO (10:55)
[2019-03-27] MEDS ORDERED: AMBI10TA PO (13:13)
[2019-03-27] MEDS: SODIUM CHLORIDE 0.9% INJ 10 ML SYR IV PRN (13:17)
--- NOTE | 2019-03-27 14:55 | DS.PDOC ---
Discharge Summary General Date of Admission Mar 15, 2019 at 14:22 Date of Discharge 03/27/19 Discharge Summary PROCEDURES PERFORMED DURING STAY: [None]. ADMITTING DIAGNOSES: Cardiac arrhythmias Ischemic cardiomyopathy with Systolic Congestive heart failure with low ejection fraction Hypotension intermittent Acute NSTEMI with frequent cardiac arrhythmias. 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 Hypertension. Coronary artery disease, status post coronary artery bypass grafting DISCHARGE DIAGNOSES: Cardiac arrhythmias Ischemic cardiomyopathy with Systolic Congestive heart failure with low ejection fraction Hypotension intermittent Acute NSTEMI with frequent cardiac arrhythmias. 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 Hypertension. Coronary artery disease, status post coronary artery bypass grafting COMPLICATIONS/CHIEF COMPLAINT: Right Sided Plural Infusion. HISTORY OF PRESENT ILLNESS: Patient 69 years old with past history of CVA, atrial fibrillation, lung cancer was directly transferred to the hospital from [facility] with increased shortness of breath secondary to the right pleural effusion. 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 He had multiple pleuracentesis in the past. Also patient was found to have elevated troponin level 7.6, second troponin was 8.3. Patient denied any chest pain. 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 Grant, transfer to [place] for possible cardiac catheterization was declined by patient. Patient received conservative treatment for ID. Dr. Hernandez drained the pleural fluid via chest tube. On 03/17/19 Dr. Hernandez removed chest tube. HOSPITAL COURSE: During hospital stay following issue addressed Cardiac arrhythmias. Sustained vtachs and frequent NSVTs was seen in Telemetry As per cardio this will probably continue and he has AICD so was ok to take off tele and plan for dc home. continue po amiodarone 400 bid on discharge x 1 month follow up with Dr Grant in 2 weeks after discharge. Ischemic cardiomyopathy with Systolic Congestive heart failure with low ejection fraction. Has AICD in place. lisinopril, lasix if Bp permits. Echo Shows: . Moderately enlarged left ventricle with preserved left ventricular wall thickness, but with a severely depressed global left ventricular systolic function. The estimated global left ventricular systolic ejection fraction is 20%. Moderately enlarged left atrium. The right atrium also appeared to be enlarged. The right ventricle appeared to be mildly enlarged with decreased right ventricular free wall contraction. Mildly dilated aortic root at 3.9 cm. A small pericardial effusion noted, no evidence of cardiac tamponade. Moderate Mitral regurgitation. Hypotension intermittent asymptomatic probably due to systolic CHF. Acute NSTEMI with frequent cardiac arrhythmias. Patient declined to be transferred to acute cardiac facility for interventional cardiology Continue beta fredy, asa, statin, xarelto Persistent cough seen by pulmonary, no obstruction of th airways. Multifactorial. Mostly like due to a infiltrative process of unkown cause at this point. Not infective. And moderate to severe COPD, suggested vest which patient refused Patient received acapella to EZ PAP, mucinex Recurrent pleural effusion on right still with some remaining. borderline neither transudative nor exudative. due to lung malignancy vs CHF Dr. Hernandez drained the pleural fluid via pig tail cath. On 03/17/19 Dr. Hernandez removed chest drain. still has moderate pleural effusion stable. Non-small cell carcinoma of right lung Stage IIIB non-small cell poorly differentiated carcinoma, treated with radiation and chemotherapy. Currently on Ketruda every 3 weeks. Follow-up with oncologist Moderate to severe COPD on budesonide and performist. recommended duonebs followed by Kate. Patient did not want the duonebs. Coronary artery disease, status post coronary artery bypass grafting. continue asa, xarelto, betablocker, statin. Chronic Atrial fibrillation Heart rate is under control betablocker, xarelto. AICD in place DISCHARGE MEDICATIONS: Please see below. ALLERGIES: Please see below. PHYSICAL EXAMINATION ON DISCHARGE: VITAL SIGNS: Please see below. VITAL SIGNS: Please see below. GENERAL APPEARANCE: Well-nourished, well-developed, not in apparent distress HEENT: Normocephalic, atraumatic. Mucous members moist and pink, Facial deviation to right. Visual impairment. CARDIOVASCULAR: Regular rate and rhythm. Pacemaker in place. Radial pulses are intact LUNGS: Bilateral coarse breath sounds , few wheezes ABDOMEN: Abdomen is soft and nontender. Bowel sounds normal. NEUROLOGICAL: Left hemiparesis. Left upper extremity 1/5 power, lower extremit y3/5 power. Speech is not dysarthric, no nuchal rigidity EXTREMITIES: trace bilateral pitting edema Left > right. Chronic venous stasis dermatitis. LABORATORY DATA: Please see below. IMAGING: PROCEDURE INFORMATION: Exam: CT Chest With Contrast Exam date and time: 03/15/2019 6:39 PM Age: 69 years old Clinical indication: Shortness of breath; Additional info: Shortness of breath pleural effusion TECHNIQUE: Imaging protocol: Computed tomography of the chest with intravenous contrast. 3D rendering: MIP and/or 3D reconstructed images were created by the technologist. Radiation optimization: All CT scans at this facility use at least one of these dose optimization techniques: automated exposure control; mA and/or kV adjustment per patient size (includes targeted exams where dose is matched to clinical indication); or iterative reconstruction. Contrast material: ISOVUE 370; Contrast volume: 75 ml; Contrast route: IV; COMPARISON: CT CHEST W/ CONTRAST - OUTSIDE PRIOR 07/11/2017 1:28 PM FINDINGS: Lungs: Right upper lobe mass measuring 7.9 x 5.8 x 6.8 cm has migrated medially in association with atelectasis of the right upper lobe. Multiple ground-glass and semi solid opacities throughout the left lung most pronounced in the left upper lobe. Pleural space: Large right pleural effusion. Left pleural cavity unremarkable. Heart: Cardiomegaly.There is severe atherosclerotic calcification of the coronary arteries. Aorta: The aorta demonstrates mild atherosclerotic calcification. Lymph nodes: Confluent right hilar lymphadenopathy likely malignant. Small mediastinal lymph nodes demonstrated as well. Bones/joints: The spine demonstrates mild degenerative changes. Status post sternotomy. Soft tissues: Unremarkable. IMPRESSION: 1. Right upper lobe mass measuring 7.9 x 5.8 x 6.8 cm has migrated medially in association with atelectasis of the right upper lobe. Also noted is bulky confluent right hilar lymphadenopathy likely malignant. 2. Multiple ground-glass and semi solid opacities throughout the left lung most pronounced in the left upper lobe. 3. Cardiomegaly and severe coronary artery disease. 4. Large right pleural effusion. PROGNOSIS: Guarded ACTIVITY: [As tolerated]. DIET: Cardiac DISCHARGE PLAN: Home with home health DISPOSITION: . See above DISCHARGE INSTRUCTIONS: Follow-up with oncologist, PCP ITEMS TO FOLLOWUP ON ON OUTPATIENT: See above DISCHARGE CONDITION: [Stable]. TIME SPENT ON DISCHARGE: Greater than 20 minutes. Vital Signs/I&Os Vital Signs Date Time Temp Pulse Resp B/P (MAP) Pulse Ox O2 Delivery O2 Flow Rate FiO2 03/27/19 09:39 117/61 03/27/19 06:00 97.0 69 15 93 Room Air 03/25/19 09:05 2.0 I&O- Last 24 Hours up to 6 AM 03/27/19 06:00 Intake Total 570 ml Output Total 600 ml Balance -30 ml Discharge Medications Scheduled Amiodarone HCl (Amiodarone HCl) 200 Mg Tablet, 400 MG PO BID Aspirin (Aspirin EC) 81 Mg Tablet.dr, 81 MG PO DAILY Carvedilol (Carvedilol) 6.25 Mg Tab, 6.25 MG PO BID, (Reported) Furosemide (Furosemide) 40 Mg Tab, 40 MG PO DAILY, (Reported) Guaifenesin (Mucinex) 600 Mg Tab.er.12h, 600 MG PO BID Lisinopril (Lisinopril) 10 Mg Tablet, 10 MG PO DAILY Omeprazole Magnesium (Prilosec Otc) 20 Mg Tablet.dr, 20 MG PO DAILY, (Reported) Potassium Chloride (Klor-Con M10) 10 Meq Tab.er.prt, 40 MEQ PO DAILY Rivaroxaban (Xarelto) 20 Mg Tab, 20 MG PO QPM, (Reported) Rosuvastatin Calcium (Rosuvastatin Calcium) 40 Mg Tablet, 20 MG PO QPM, (Reported) Sennosides/Docusate Sodium (Senna Plus Tablet) 1 Each Tablet, 1 TAB PO BID Spironolactone (Aldactone) 25 Mg Tablet, 25 MG PO QAM Scheduled PRN Acetaminophen (Acetaminophen) 500 Mg Tab, 1,000 MG PO TID PRN for PAIN / FEVER, (Reported) Bisacodyl (Bisacodyl) 10 Mg Supp.rect, 10 MG CA DAILYPRN PRN for CONSTIPATION Zolpidem Tartrate (Ambien) 10 Mg Tablet, 1 TAB PO QPMP PRN for sleep Allergies Coded Allergies: No Known Allergies (Unverified , 08/07/17) SONDRA GONSALEZ DO Mar 27, 2019 14:55
== END 2019-03-27 14:44 | disposition home health service (06) | DRG 186 ==
LOC: M PCU 14:22 → M MSPAV 18:32 → M PCU 03-16 00:18 → M MSPAV 03-24 16:59
PROVIDERS: ADMIT Internal Medicine; ATTEND Internal Medicine
PROC: 0W9900Z Drainage of Right Pleural Cavity with Drainage Device, Open Approach (ICD-10-PCS; principal; 2019-03-16)
DX: J90 Pleural effusion, not elsewhere classified (principal); I21.4 Non-ST elevation (NSTEMI) myocardial infarction; C34.11 Malignant neoplasm of upper lobe, right bronchus or lung; I69.354 Hemiplegia and hemiparesis following cerebral infarction affecting left non-dominant side; I48.20 Chronic atrial fibrillation, unspecified; I24.8 Other forms of acute ischemic heart disease; I50.22 Chronic systolic (congestive) heart failure; I47.2 Ventricular tachycardia; J98.11 Atelectasis; Z66 Do not resuscitate; J44.9 Chronic obstructive pulmonary disease, unspecified; I11.0 Hypertensive heart disease with heart failure; I73.9 Peripheral vascular disease, unspecified; I25.5 Ischemic cardiomyopathy; Z92.21 Personal history of antineoplastic chemotherapy; Z92.3 Personal history of irradiation; I95.89 Other hypotension; I34.0 Nonrheumatic mitral (valve) insufficiency; Z79.01 Long term (current) use of anticoagulants; Z45.02 Encounter for adjustment and management of automatic implantable cardiac defibrillator; Z95.1 Presence of aortocoronary bypass graft; Z79.899 Other long term (current) drug therapy; Z95.810 Presence of automatic (implantable) cardiac defibrillator; Z87.891 Personal history of nicotine dependence

== ENCOUNTER 2019-05-29 08:53 | Inpatient (IN) | payer MEDICARE ==
[2019-05-29] VITALS (11 sets, daily range): BP systolic 101–120; BP diastolic 58–74; O2SAT 91–97
[~2019-05-29] VITALS: Ht 193 cm; Wt 88.6 kg
[~2019-05-29 08:53] MED LIST changes: +ALDA25TA2 PO; +AMBI10TA PO; +AMIO200T PO; +ASPI81TAEC PO; +AZIT50VL IV; +BISA10SU PR; +CEFT1INJ5 IV; +KLOR10TA76 PO; +LISI10TA4 PO; +MUCI600T31 PO; +RAME8TAB2 PO; +SENN-52 PO
[2019-05-29] MEDS: DOCUSATE SODIUM 100 MG CAP PO SCH ×2 (09:00→21:00)
[2019-05-29] MEDS: OMEPRAZOLE 20 MG CAP PO SCH (09:00)
[2019-05-29] MEDS ORDERED: MOM 30ML SUSPENSION UDC PO PRN (12:15)
[2019-05-29] MEDS ORDERED: MAALOX 30 ML SUSP *UDC PO PRN (12:15)
[2019-05-29] MEDS ORDERED: ACETAMINOPHEN TAB 650MG DOSE (2X325MG) PO PRN (12:15)
[2019-05-29] MEDS ORDERED: SLF 3 ML SYR IV PRN (12:30)
[2019-05-29] MEDS: SLF 3 ML SYR IV SCH ×2 (12:37→22:02)
[2019-05-29 12:56] LABS: HEMATOCRIT 44.7 % (42.0-52.0); MEAN CORPUSCULAR HEMOGLOBIN 28.5 pg (27.0-33.0); MEAN CORPUSCULAR HGB CONC 31.3 g/dl (32.0-36.5); MEAN CORPUSCULAR VOLUME 90.9 fl (80.0-96.0); PLATELET COUNT, AUTOMATED 208 10^3/uL (150-450); RED BLOOD COUNT 4.92 10^6/uL (4.30-6.10); WHITE BLOOD COUNT 8.4 10^3/uL (4.0-10.0)
[2019-05-29] MEDS ORDERED: SODIUM CHLORIDE 0.9% INJ 10 ML SYR IV PRN (13:15)
[2019-05-29 13:30] LABS: ALBUMIN 3.2 GM/DL (3.2-5.2); ALT/SGPT 39 U/L (12-78); BILIRUBIN,TOTAL 0.9 MG/DL (0.2-1.0); BLOOD UREA NITROGEN 17 MG/DL (7-18); CALCIUM LEVEL 9.3 MG/DL (8.8-10.2); CARBON DIOXIDE LEVEL 29 MEQ/L (21-32); CHLORIDE LEVEL 97 MEQ/L (98-107); GLOMERULAR FILTRATION RATE > 60.0 (>42); GLUCOSE, FASTING 117 MG/DL (70-100); POTASSIUM SERUM 4.5 MEQ/L (3.5-5.1); SODIUM LEVEL 135 MEQ/L (136-145); TOTAL PROTEIN 7.6 GM/DL (6.4-8.2)
[2019-05-29] MEDS ORDERED: AMIO200T PO (13:30)
[2019-05-29] MEDS ORDERED: SPIR-10 PO (13:30)
[2019-05-29] MEDS ORDERED: VITA200012 PO (13:30)
[2019-05-29] MEDS ORDERED: KEYT1INJ IV (13:32)
[2019-05-29] MEDS: AMIODARONE 200 MG TAB (PACERONE) PO SCH (15:02)
[2019-05-29] MEDS: SPIRONOLACTONE 25 MG TAB PO SCH (15:02)
--- NOTE | 2019-05-29 15:08 | HPEPDOC ---
General Date of Admission May 29, 2019 at 11:02 Date of Service: May 29, 2019 Chief Complaint The patient is a 69-year-old male admitted with a reason for visit of Acute Hypoxic Resp. Jennifer, Domingo, Covid R/O. Source: Patient, Old records Exam Limitations: Clinical conditions, Other Associated Symptoms: Cough, Shortness of breath History of Present Illness 69-year-old male with stage IIIB lung cancer, currently on keytruda, presents as a direct transfer from [facility] for hypoxic respiratory failure. Patient reports that symptoms began approximately 3 weeks ago. Over the past several weeks, he has had worsening shortness of breath and decreased exercise tolerance. Recently he has been undergoing multiple medical issues including recent IA 2 months prior. Patient states that on day of presentation, he was unable to catch his breath and felt chest was very tight. He experienced similar symptoms like this before in the past when he had significant pleural effusions which required drainage.Due to his symptoms, he went to [facility] for evaluation. While undergoing workup there, he was noted to have increased pulm onary vascular congestion and elevated BNP of greater than 6000. He was treated with IV Lasix and then transferred over to [facility] for further evaluation and management. Patient currently denies any fevers, chills, abdominal pain, chest pain, nausea, vomiting, leg swelling. He endorses and inability to lie flat. He also states that he has a worsening cough at nighttime compared to the mornings. He says cough is sometimes productive of white sputum. He denies any recent sick contacts or travel history to note areas of Covid. Patient was last seen by his oncologist one month prior and had been doing well at that time. Patient to be admitted to hospital service for further management and treatment. Home Medications Scheduled Amiodarone HCl (Amiodarone HCl) 200 Mg Tablet, 400 MG PO DAILY, (Reported) Carvedilol (Carvedilol) 6.25 Mg Tab, 6.25 MG PO BID, (Reported) Cholecalciferol (Vitamin D3) (D3-2000) 50 Mcg Capsule, 2,000 UNITS PO DAILY, (Reported) Furosemide (Furosemide) 40 Mg Tab, 40 MG PO DAILY, (Reported) Omeprazole Magnesium (Prilosec Otc) 20 Mg Tablet.dr, 10 MG PO DAILY, (Reported) Pembrolizumab (Keytruda) 100 Mg/4 Ml Vial, 1 DOSE IV ASDIRECTED, (Reported) patient gets infusion every 3 weeks, is scheduled for 05/30/19 but had to cancel, missed May 08 appointment per Franca (his ). Rivaroxaban (Xarelto) 20 Mg Tab, 20 MG PO QPM, (Reported) Rosuvastatin Calcium (Rosuvastatin Calcium) 40 Mg Tablet, 20 MG PO QPM, (Reported) Spironolactone (Spironolactone) 25 Mg Tablet, 25 MG PO QAM, (Reported) Scheduled PRN Acetaminophen (Acetaminophen) 500 Mg Tab, 1,000 MG PO TID PRN for PAIN / FEVER, (Reported) Allergies Coded Allergies: No Known Allergies (Unverified , 08/07/17) Past Medical History Medical History non small cell carcinoma, R lung, Stage IIIB CVA with residual L sided deficits CHF with reduced EF CAD s/p CABG Surgical History CABG femoral endarterectomy spine surgery AICD placement Family History Patient unable to recall Social History * Smoker: Denies, former Smoker, quit greater than 1 year Drugs: denies Recent Travel/Sick Contacts: Denies: Recent travel, Recent sick contacts Psychosocial History: No pertinent psych hx Patient lives with his A-FIB/[facility] A-FIB History Current/History of A-Fib/PAF?: Yes Current PO Anticoag Therapy: Yes Treatment Treatment ordered: Rivaroxaban Review of Systems Constitutional: Reports: Malaise, Weakness, Fatigue; Denies: Chills, Fever Eyes: Denies: Pain, Vision change ENT: Denies: Head Aches, Ear Pain, Dysphagia Skin: Denies: Rash, Lesions, Jaundice, Bruising Pulmonary: Reports: Dyspnea, Cough; Denies: Pleuritic Chest Pain Cardiovascular: Reports: Orthopnea, Paroxysmal Noc. Dyspnea; Denies: Chest Pain, Palpitations, Edema, Lt Headedness Gastrointestinal: Denies: Nausea, Vomiting, Abdominal Pain, Diarrhea, Constipation Genitourinary: Denies: Dysuria, Frequency Musculoskeletal: Reports: Back Pain Neurological: Reports: Weakness; Denies: Incoordination, Change in speech, Confusion, Seizures Psych: Reports: Mood Normal Physical Examination General Exam: Positive: Alert, Mild Distress, Other (cachectic appearing male who looks older than stated age. Chronically ill in appearance. To speak in 2-4 word sentences due to shortness of breath.) Eye Exam: Positive: PERRLA, Conjunctiva & lids normal, EOMI; Negative: Sclera icteric ENT Exam: Positive: Atraumatic, Mucous membr. moist/pink Neck Exam: Positive: Supple, JVD Chest Exam: Positive: Diminished, Other (bibasilar crackles noted in lower lung manning) Heart Exam: Positive: Rate Normal, Regular Rhythm, Normal S1, Normal S2, G allops Abdomen Exam: Positive: Normal bowel sounds, Soft; Negative: Tenderness, Hepatospenomegaly Extremity Exam: Positive: Other (left arm appears to be contracted unable to move due to his prior stroke); Negative: Clubbing, Cyanosis, Edema Skin Exam: Positive: Nl turgor and temperature; Negative: Rash, Breakdown Neuro Exam: Positive: Normal Tone, Cranial Nerves 3-12 NL Psych Exam: Positive: Mental status NL, Mood NL Vital Signs Vital Signs Date Time Temp Pulse Resp B/P (MAP) Pulse Ox O2 Delivery O2 Flow Rate FiO2 05/29/19 14:18 68 96 Nasal Cannula 2.0 05/29/19 11:04 96.7 20 101/58 (72) Laboratory Data Labs 24H Laboratory Tests 2 05/29/19 12:20: Coronavirus (COVID-19)(PCR) NEGATIVE 05/29/19 12:38: Nucleated Red Blood Cells % (auto) 0.0, Anion Gap 9, Glomerular Filtration Rate > 60.0, Lactic Acid Level 2.1*H, Calcium Level 9.3, Total Bilirubin 0.9, Aspartate Amino Transf (AST/SGOT) 31, Alanine Aminotransferase (ALT/SGPT) 39, Alkaline Phosphatase 133H, Total Protein 7.6, Albumin 3.2, Albumin/Globulin Ratio 0.73L CBC/BMP Laboratory Tests 05/29/19 12:38 Microbiology Microbiology 05/29/19 Respiratory Panel (PCR) - Final, Complete Assessment/Plan 69-year-old male with multiple medical comorbidities presents as a direct admission from [facility] for worsening short of breath and hypoxemic respiratory failure. Patient has multiple reasons why he could be hypoxemic including possible pleural effusions, worsening CHF exacerbation, pneumonia, worsening cancer. Labs do indicate possible heart failure as cause given his elevated BNP and pulmonary vascular congestion noted on report from the ER. Patient also is at risk for urias virus infection given his immunocompromise state and multiple visits to the hospital. We'll begin workup to find the cause continue diuresis for now. Plan / VTE VTE Prophylaxis Ordered?: No Plan Plan Hypoxemic respiratory failure likely multifactorial Patient noted to be saturating the low 90s on 2-3 L nasal cannula. Patient does not use home oxygen. Patient has advanced lung cancer, CHF, history of malignant pleural effusions. Likely cause of his worsening hypoxemia is multifactorial in nature. Respiratory panels negative and Covid testing is currently pending. - Follow up Covid 19 - isolation precautions with droplet/contact can be dismissed if negative test - Follow pro-calcitonin - Begin diuresing at 40 mg IV Lasix twice a day - Follow-up chest x-ray to see if patient has worsening effusions or infiltrates - Follow-up echocardiogram to assess EF - was approximately 20-30% to months prior the patient has been on maximal medical therapy - Hold off on antibiotic therapy for now - Follow up sputum cultures - Follow up blood cultures - drawn at prior hospital - Supplemental O2 to maintain saturation greater than 92% Stage IIIB lung cancer Patient on keytruda at this time. Follows with Dr. Choi of oncology. As per last oncology note, cancer had not Progressed on Most Recent PET Scan. Patient will require follow-up as outpatient. - Hold keytruda for now while inpt - Will consider oncology consult patient does not improve with diuresis CHF with reduced ejection fraction Recent history of IA Coronary artery disease status post CABG Chronic atrial fibrillation Patient may be an exacerbation given elevated proBNP as well as increasing pulmonary vascular congestion. - Continue with diuresis - Daily weights - 1.5 L fluid infection - Strict I's and O's - Repeat echocardiogram ordered - Continue with carvedilol, amiodarone, spironolactone - Continue statin - c/w xarelto CVA with left-sided residual deficits Patient has known chronic A. fib. Currently on xarelto. Patient has residual left-sided deficits. - c/w xarelto, statin - pt/ot eval Diet: Continue Current Activity: Bedrest Therapy: PT, OT Medications: Change to IV, Replete Electrolytes PO, Other Med: (start diuresis) Respiratory: Increase Oxygen Diagnostics: Check Labs, Repeat Labs in AM, TTE Advanced Directives: MOLST Form is available, Do Not Resuscitate (DNR), Do Not Intubate (DNI) ANTHONY CAT MD May 29, 2019 15:08
--- NOTE | 2019-05-29 16:13 | REP ---
CHEST, SINGLE VIEW: Single view of the chest is performed and compared to prior study of 03/24/2019. Heart and mediastinum are unchanged in appearance. Large right hilar mass is again noted, unchanged. There are multiple sternal wires again noted as well as a right MediPort catheter. There is a left pacemaker. Mild blunting of the right costophrenic angle suggests a small amount of right pleural fluid or thickening. Pulmonary vasculature appears increased, and there also appears to be increase in interstitial markings bilaterally suggesting possible interstitial edema, somewhat more so on the left than on the right. Electronically Signed by Matt Vallejo MD 05/29/2019 04:27 P
[2019-05-29] MEDS: RIVAROXABAN 20 MG TAB (XARELTO) PO SCH (16:36)
[2019-05-29] MEDS: FUROSEMIDE 40MG/4ML VIAL (J1940) IV SCH (16:53)
[2019-05-29] MEDS: ROSUVASTATIN 10 MG TAB (CRESTOR) PO SCH (21:00)
[2019-05-29] MEDS: CARVedilol 6.25 MG TAB PO SCH (21:00)
--- NOTE | 2019-05-29 23:30 | ECHO ---
DATE OF PROCEDURE: 05/29/2019 REFERRING PROVIDER: Dr. Asad Osborne PATIENT LOCATION: Room 3221. REASON FOR THE STUDY: Heart failure. 2D MEASUREMENTS: IVS: 1.1 cm LV: 6.6 cm LVPW: 1.1 cm LA: 4.7 cm Aorta: 4.6 cm IVC: 2.1 cm DOPPLER MEASUREMENTS: Peak velocity across the aortic valve: 0.84 m/s Peak velocity across the LVOT: 0.54 m/s Mitral E: 0.63 Maximum tricuspid valve velocity: 2.1 m/s 2D COMMENTS: 1. Moderately enlarged left ventricle with normal left ventricular wall thickness but a severely depressed global left ventricular systolic function. The estimated left ventricular systolic ejection fraction is 20%. 2. Mildly enlarged left atrium. The right atrium also appeared to be enlarged. The right ventricle appeared to be normal in size in limited views. 3. The atrial septum appeared to be normal without evidence of defect or shunt. 4. Moderately enlarged aortic root at 4.6 cm. 5. No pericardial effusion seen. 6. Mildly calcified aortic valve with normal leaflet excursion. Mildly calcified mitral annulus with normal anterior mitral valve leaflet motion. Normal tricuspid valve and pulmonic valve. The proximal pulmonary artery branches were not well visualized. 7. The inferior vena cava was mildly enlarged; central venous pressure might be elevated. DOPPLER: It detects mild mitral regurgitation and mild tricuspid regurgitation as well as mild pulmonic regurgitation. The calculated pulmonary artery systolic pressure appeared to be normal. Assessment of the left ventricular diastolic function was limited. IMPRESSION: 1. Severe global left ventricular systolic dysfunction with a dilated left ventricle. Assessment of the left ventricular diastolic function was limited. 2. Aortic valve sclerosis without stenosis or aortic regurgitation. 3. Mitral annulus calcification with mildly enlarged left atrium and mild mitral regurgitation. 4. Mild tricuspid regurgitation with a normal calculated pulmonary artery systolic pressure. The right atrium also appeared to be mildly enlarged. 5. Mild pulmonic regurgitation. 6. The inferior vena cava was dilated; central venous pressure is most likely elevated. 7. Most recent echocardiogram was in March of 2019 and, at that time, moderate mitral regurgitation was detected. 8. Pacemaker/automatic implantable cardioverter-defibrillator (AICD) wire artifacts noted in limited views. MTDD
[2019-05-30] VITALS (20 sets, daily range): BP systolic 103–133; BP diastolic 60–80; O2SAT 90–97
[2019-05-30] MEDS: SLF 3 ML SYR IV SCH ×3 (06:00→21:45)
[2019-05-30 06:47] LABS: HEMATOCRIT 38.8 % (42.0-52.0); HEMOGLOBIN 12.1 g/dl (13.5-17.5); MEAN CORPUSCULAR HEMOGLOBIN 27.9 pg (27.0-33.0); MEAN CORPUSCULAR HGB CONC 31.2 g/dl (32.0-36.5); MEAN CORPUSCULAR VOLUME 89.6 fl (80.0-96.0); PLATELET COUNT, AUTOMATED 195 10^3/uL (150-450); RED BLOOD COUNT 4.33 10^6/uL (4.30-6.10); WHITE BLOOD COUNT 9.6 10^3/uL (4.0-10.0)
[2019-05-30 07:08] LABS: BLOOD UREA NITROGEN 22 MG/DL (7-18); CARBON DIOXIDE LEVEL 35 MEQ/L (21-32); CHLORIDE LEVEL 97 MEQ/L (98-107); CREATININE FOR GFR 1.06 MG/DL (0.70-1.30); GLOMERULAR FILTRATION RATE > 60.0 (>42); GLUCOSE, FASTING 101 MG/DL (70-100); MAGNESIUM LEVEL 2.1 MG/DL (1.8-2.4); POTASSIUM SERUM 3.9 MEQ/L (3.5-5.1); SODIUM LEVEL 137 MEQ/L (136-145)
[2019-05-30] MEDS: AMIODARONE 200 MG TAB (PACERONE) PO SCH (09:23)
[2019-05-30] MEDS: DOCUSATE SODIUM 100 MG CAP PO SCH ×2 (09:23→21:43)
[2019-05-30] MEDS: SODIUM CHLORIDE 0.9% INJ 10 ML SYR IV SCH (09:23)
[2019-05-30] MEDS: FUROSEMIDE 40MG/4ML VIAL (J1940) IV SCH ×2 (09:23→17:37)
[2019-05-30] MEDS: OMEPRAZOLE 20 MG CAP PO SCH (09:23)
[2019-05-30] MEDS: CARVedilol 6.25 MG TAB PO SCH ×2 (09:23→21:44)
[2019-05-30] MEDS: SPIRONOLACTONE 25 MG TAB PO SCH (09:27)
--- NOTE | 2019-05-30 10:23 | IPNPDOC ---
Subjective Date Seen The patient was seen on 05/30/19. Subjective Chief Complaint/HPI Patient seen and examined at bedside this morning. Patient reports that he is breathing much better today than he was yesterday. He states that he had a good night when he was able to sleep. He denies any recent fevers, chills, shortness of breath, chest pain, abdominal pain, leg swelling, nausea, vomiting. Patient has no other complaints at this time. Bedside swallow was performed and patient has been cleared for mechanically soft diet with regular liquids. Patient was happy that he started eating again. Other systems 10 point review of systems is negative except for what is stated in the subjective. Objective Physical Examination General Exam: Positive: Alert, No Acute Distress (patient appears much more comfortable today. Speaking in full sentences.) Eye Exam: Positive: PERRLA, Conjunctiva & lids normal, EOMI; Negative: Sclera icteric ENT Exam: Positive: Atraumatic, Mucous membr. moist/pink Neck Exam: Positive: Supple, JVD Chest Exam: Positive: Normal air movement, Diminished, Other (bibasilar crackles noted in lower lung manning but appears to be less.); Negative: Rales, Rhonchi, Wheezing Heart Exam: Positive: Rate Normal, Regular Rhythm, Normal S1, Normal S2, Gallops Abdomen Exam: Positive: Normal bowel sounds, Soft; Negative: Tenderness, Hepatospenomegaly Extremity Exam: Positive: Other (left arm appears to be contracted unable to move due to his prior stroke); Negative: Clubbing, Cyanosis, Edema Skin Exam: Positive: Nl turgor and temperature; Negative: Rash, Breakdown Neuro Exam: Positive: Normal Speech, Normal Tone, Cranial Nerves 3-12 NL Psych Exam: Positive: Mental status NL, Mood NL, Oriented x 3 Assessment /Plan Assessment 69-year-old male with multiple medical comorbidities presents as a direct admission from [facility] for worsening short of breath and hypoxemic respiratory failure. Workup so far reveals the patient was fluid overloaded likely due to worsening heart failure. Chest x-ray showed pulmonary vascular congestion and echo showed a decreased EF of 20% which has been unchanged from prior echo 2 months prior. Patient responded well to diuretic therapy as he is not -1.7 L the past 24 hours. He is now saturating close to 95-97% on 2 L nasal cannula. Plan will be to titrate down and continue diuresis as tolerated. Plan/VTE VTE Prophylaxis Ordered?: No Plan Diet: Advance Activity: Continue Current, Advance, Encourage Ambulation Therapy: PT, OT Medications: Other Med: (continue with diuretics) Respiratory: Wean Oxygen Advance Directives: DNR Hypoxemic respiratory failure likely due to acute CHFrEF exacerbation Imaging studies show only vascular congestion which is consistent with CHF exacerbation. Echo shows a depressed EF of 20% which is unchanged from prior. Patient is Covid 19 negative. Low clinical suspicion for any sort of infection at this time. - Continue with IV Lasix 40 mg twice a day - Follow up sputum cultures - Follow up blood cultures - drawn at prior hospital - Supplemental O2 to maintain saturation greater than 92% - wean off as tolerated Stage IIIB lung cancer Patient on keytruda at this time. Follows with Dr. Choi of oncology. As per last oncology note, cancer had not Progressed on Most Recent PET Scan. Patient will require follow-up as outpatient. - Hold keytruda for now while inpt - Will consider oncology consult patient does not improve with diuresis CHF with reduced ejection fraction exacerbation Recent history of [place] Coronary artery disease status post CABG Chronic atrial fibrillation Patient may be an exacerbation given elevated proBNP as well as increasing pulmonary vascular congestion. - Continue with diuresis - Daily weights - 1.5 L fluid infection - Strict I's and O's - Continue with carvedilol, amiodarone, spironolactone - Continue statin - c/w xarelto CVA with left-sided residual deficits Patient has known chronic A. fib. Currently on xarelto. Patient has residual left-sided deficits. - c/w xarelto, statin - pt/ot eval VS, I&O, 24H, Fishbone Vital Signs/I&O Vital Signs Date Time Temp Pulse Resp B/P (MAP) Pulse Ox O2 Delivery O2 Flow Rate FiO2 05/30/19 09:23 70 127/80 05/30/19 09:00 97 Nasal Cannula 2.0 05/30/19 08:00 96.4 20 I&O- Last 24 Hours up to 6 AM 05/30/19 06:00 Intake Total 360 ml Output Total 2100 ml Balance -1740 ml Laboratory Data 24H LABS Laboratory Tests 2 05/29/19 12:20: Coronavirus (COVID-19)(PCR) NEGATIVE 05/29/19 12:38: Nucleated Red Blood Cells % (auto) 0.0, Anion Gap 9, Glomerular Filtration Rate > 60.0, Lactic Acid Level 2.1*H, Calcium Level 9.3, Total Bilirubin 0.9, Aspart ate Amino Transf (AST/SGOT) 31, Alanine Aminotransferase (ALT/SGPT) 39, Alkaline Phosphatase 133H, Total Protein 7.6, Albumin 3.2, Albumin/Globulin Ratio 0.73L 05/29/19 17:13: Lactic Acid Followup at 4 Hours 1.7 05/30/19 06:27: Nucleated Red Blood Cells % (auto) 0.0, Anion Gap 5L, Glomerular Filtration Rate > 60.0, Calcium Level 9.0, Magnesium Level 2.1 CBC/BMP Laboratory Tests 05/29/19 12:38 05/30/19 06:27 Microbiology Microbiology 05/29/19 Respiratory Panel (PCR) - Final, Complete ANTHONY CAT MD May 30, 2019 10:23
[2019-05-30] MEDS: RIVAROXABAN 20 MG TAB (XARELTO) PO SCH (17:37)
[2019-05-30] MEDS: ROSUVASTATIN 10 MG TAB (CRESTOR) PO SCH (21:44)
[2019-05-31] VITALS (20 sets, daily range): BP systolic 91–123; BP diastolic 57–70; O2SAT 89–97
[2019-05-31] MEDS: SLF 3 ML SYR IV SCH ×3 (04:56→21:33)
[2019-05-31] MEDS: SODIUM CHLORIDE 0.9% INJ 10 ML SYR IV SCH (05:38)
[2019-05-31 05:49] LABS: HEMATOCRIT 37.9 % (42.0-52.0); HEMOGLOBIN 11.7 g/dl (13.5-17.5); MEAN CORPUSCULAR HGB CONC 30.9 g/dl (32.0-36.5); MEAN CORPUSCULAR VOLUME 90.7 fl (80.0-96.0); PLATELET COUNT, AUTOMATED 171 10^3/uL (150-450); RED BLOOD COUNT 4.18 10^6/uL (4.30-6.10); WHITE BLOOD COUNT 8.4 10^3/uL (4.0-10.0)
[2019-05-31 06:10] LABS: BLOOD UREA NITROGEN 25 MG/DL (7-18); CALCIUM LEVEL 9.1 MG/DL (8.8-10.2); CARBON DIOXIDE LEVEL 37 MEQ/L (21-32); CHLORIDE LEVEL 96 MEQ/L (98-107); CREATININE FOR GFR 0.99 MG/DL (0.70-1.30); GLOMERULAR FILTRATION RATE > 60.0 (>42); GLUCOSE, FASTING 84 MG/DL (70-100); MAGNESIUM LEVEL 2.2 MG/DL (1.8-2.4); POTASSIUM SERUM 3.5 MEQ/L (3.5-5.1); SODIUM LEVEL 138 MEQ/L (136-145)
--- NOTE | 2019-05-31 08:36 | IPNPDOC ---
Subjective Date Seen The patient was seen on 05/31/19. Subjective Chief Complaint/HPI Patient seen and examined at bedside this morning. Patient appears to be much more alert and awake. Patient states that he is feeling remarkably improved compared to when he first came in. He states that he has some phlegm in his throat but otherwise has no complaints. He says his breathing is much more easy and natural. Patient denies any recent fevers, chills, shortness of breath, chest pain, abdominal pain, nausea, vomiting. Patient has no other complaints at this time. Other systems 10 point review of systems is negative except for what is stated above in the subjective Objective Physical Examination General Exam: Positive: Alert, No Acute Distress (patient appears much more comfortable today. Speaking in full sentences.) Eye Exam: Positive: PERRLA, Conjunctiva & lids normal, EOMI; Negative: Sclera icteric ENT Exam: Positive: Atraumatic, Mucous membr. moist/pink Neck Exam: Positive: Supple; Negative: JVD Chest Exam: Positive: Normal air movement, Diminished, Other (minimal bibasilar crackles noted); Negative: Rales, Rhonchi, Wheezing Heart Exam: Positive: Rate Normal, Regular Rhythm, Normal S1, Normal S2, Gallops Abdomen Exam: Positive: Normal bowel sounds, Soft; Negative: Tenderness, Hepatospenomegaly Extremity Exam: Positive: Other (left arm appears to be contracted unable to move due to his prior stroke); Negative: Clubbing, Cyanosis, Edema Skin Exam: Positive: Nl turgor and temperature; Negative: Rash, Breakdown Neuro Exam: Positive: Normal Speech, Normal Tone, Cranial Nerves 3-12 NL Psych Exam: Positive: Mental status NL, Mood NL, Oriented x 3 Other physical findings Fully catheter in place draining clear yellow urine Assessment /Plan Assessment 69-year-old male with multiple medical comorbidities presents as a direct admission from [facility] for worsening short of breath and hypoxemic respiratory failure 2/2 acute on chronic CHF exacerbation. Patient is diuresing well and was a net -2 L over the past 24 hours. Patient's breathing continues to improve although he still remains on 2 L nasal cannula saturating 95-97%. [place] catheter to remain while patient still diuresis at this time given copious amounts of urine. We'll continue with current treatment plan at this time. Plan/VTE VTE Prophylaxis Ordered?: No Plan Diet: Advance Activity: Continue Current, Advance, Encourage Ambulation Therapy: PT, OT Medications: Other Med: (continue with diuretics) Respiratory: Wean Oxygen Anticipated Discharge: Home, Home With Services, Sub Acute Rehab Advance Directives: DNR Hypoxemic respiratory failure likely due to acute CHFrEF exacerbation Imaging studies show only vascular congestion which is consistent with CHF exacerbation. Echo shows a depressed EF of 20% which is unchanged from prior. Patient is Covid 19 negative. Low clinical suspicion for any sort of infection at this time.\ - Continue with IV Lasix 40 mg twice a day - Follow up sputum cultures - Follow up blood cultures - drawn at prior hospital negative today - Supplemental O2 to maintain saturation greater than 92% - wean off as tolerated Stage IIIB lung cancer Patient on keytruda at this time. Follows with Dr. Choi of oncology. As per last oncology note, cancer had not Progressed on Most Recent PET Scan. Patient will require follow-up as outpatient. - Hold keytruda for now while inpt - Will consider oncology consult patient does not improve with diuresis CHF with reduced ejection fraction exacerbation Recent history of [place] Coronary artery disease status post CABG Chronic atrial fibrillation Patient continues to diurese well at this time. He is an net -4 L so far during this hospital admission. Will continue with current diuresis - Continue with diuresis - Daily weights - 1.5 L fluid infection - Strict I's and O's - Continue with carvedilol, amiodarone, spironolactone - Continue statin - c/w xarelto CVA with left-sided residual deficits Patient has known chronic A. fib. Currently on xarelto. Patient has residual left-sided deficits. - c/w xarelto, statin - pt/ot eval VS, I&O, 24H, Fishbone Vital Signs/I&O Vital Signs Date Time Temp Pulse Resp B/P (MAP) Pulse Ox O2 Delivery O2 Flow Rate FiO2 05/31/19 08:00 97.2 70 20 104/63 (77) 96 Nasal Cannula 1.0 I&O- Last 24 Hours up to 6 AM 05/31/19 06:00 Intake Total 900 ml Output Total 2450 ml Balance -1550 ml Laboratory Data 24H LABS Laboratory Tests 2 05/31/19 05:40: Nucleated Red Blood Cells % (auto) 0.0, Anion Gap 5L, Glomerular Filtration Rate > 60.0, Calcium Level 9.1, Magnesium Level 2.2 CBC/BMP Laboratory Tests 05/31/19 05:40 Microbiology Microbiology 05/29/19 Respiratory Panel (PCR) - Final, Complete ANTHONY CAT MD May 31, 2019 08:36
[2019-05-31] MEDS: CARVedilol 6.25 MG TAB PO SCH ×2 (09:13→21:00)
[2019-05-31] MEDS: DOCUSATE SODIUM 100 MG CAP PO SCH ×2 (09:13→20:40)
[2019-05-31] MEDS: OMEPRAZOLE 20 MG CAP PO SCH (09:13)
[2019-05-31] MEDS: AMIODARONE 200 MG TAB (PACERONE) PO SCH (09:13)
[2019-05-31] MEDS: SPIRONOLACTONE 25 MG TAB PO SCH (09:14)
[2019-05-31] MEDS: FUROSEMIDE 40MG/4ML VIAL (J1940) IV SCH ×2 (09:14→17:13)
[2019-05-31] MEDS ORDERED: VARIBAR PUDDING 40% w/v 230ML TUBE As Ordered ONE (11:40)
[2019-05-31] MEDS ORDERED: BARIUM SULFATE 700 MG TABLET (E-Z-DISK) As Ordered ONE (11:41)
[2019-05-31] MEDS ORDERED: VARIBAR NECTAR 40% w/v 240ML SUSP BTL As Ordered ONE (11:41)
[2019-05-31] MEDS ORDERED: E-Z-PAQUE 96% w/w SUSP 176GM BTL As Ordered ONE (11:41)
[2019-05-31] MEDS: RIVAROXABAN 20 MG TAB (XARELTO) PO SCH (18:33)
--- NOTE | 2019-05-31 19:30 | REP ---
COOKIE SWALLOW The procedure was performed under the direct supervision of Dr. Vallejo. The procedure was performed with Gayle Norton from speech pathology present. 5 ml aliquots of thin, pudding, mixed fruit, soft and solid consistency barium was administered as well as a barium pill. With thin and pudding consistency barium there is laryngeal penetration. A detailed report of this examination will be provided by speech pathology. 1.7 minutes of fluoroscopy time was utilized for this procedure. Electronically Signed by JEFFY Judeg 05/31/2019 03:58 P Electronically Signed by Matt Vallejo MD 05/31/2019 07:22 P
[2019-05-31] MEDS: RAMELTEON 8 MG TAB (ROZEREM) PO SCH (20:39)
[2019-05-31] MEDS: ROSUVASTATIN 10 MG TAB (CRESTOR) PO SCH (20:39)
[2019-06-01] MEDS: SLF 3 ML SYR IV SCH ×3 (05:22→21:06)
[2019-06-01 05:48] LABS: HEMATOCRIT 36.6 % (42.0-52.0); HEMOGLOBIN 11.6 g/dl (13.5-17.5); MEAN CORPUSCULAR HEMOGLOBIN 28.4 pg (27.0-33.0); MEAN CORPUSCULAR HGB CONC 31.7 g/dl (32.0-36.5); MEAN CORPUSCULAR VOLUME 89.5 fl (80.0-96.0); PLATELET COUNT, AUTOMATED 173 10^3/uL (150-450); RED BLOOD COUNT 4.09 10^6/uL (4.30-6.10); WHITE BLOOD COUNT 6.3 10^3/uL (4.0-10.0)
[2019-06-01 06:00] VITALS: BP 107/59
[2019-06-01 07:08] LABS: BLOOD UREA NITROGEN 23 MG/DL (7-18); CALCIUM LEVEL 8.6 MG/DL (8.8-10.2); CARBON DIOXIDE LEVEL 34 MEQ/L (21-32); CHLORIDE LEVEL 96 MEQ/L (98-107); GLOMERULAR FILTRATION RATE > 60.0 (>42); GLUCOSE, FASTING 81 MG/DL (70-100); MAGNESIUM LEVEL 2.2 MG/DL (1.8-2.4); POTASSIUM SERUM 3.4 MEQ/L (3.5-5.1); SODIUM LEVEL 138 MEQ/L (136-145)
[2019-06-01] MEDS: SODIUM CHLORIDE 0.9% INJ 10 ML SYR IV SCH (08:53)
[2019-06-01] MEDS: SPIRONOLACTONE 25 MG TAB PO SCH (08:54)
[2019-06-01] MEDS: DOCUSATE SODIUM 100 MG CAP PO SCH ×2 (08:54→20:09)
[2019-06-01] MEDS: OMEPRAZOLE 20 MG CAP PO SCH (08:54)
[2019-06-01] MEDS: CARVedilol 6.25 MG TAB PO SCH ×2 (08:54→20:07)
[2019-06-01] MEDS: AMIODARONE 200 MG TAB (PACERONE) PO SCH (08:54)
[2019-06-01] MEDS ORDERED: FUROSEMIDE 40MG/4ML VIAL (J1940) IV SCH (09:00)
--- NOTE | 2019-06-01 10:08 | IPNPDOC ---
Subjective Date Seen The patient was seen on 06/01/19. Subjective Chief Complaint/HPI Patient seen and examined at bedside this morning. Patient reports that he is feeling well and breathing better. He says that he did cough up some yellow sputum but otherwise denies any fevers, chills, shortness of breath, chest pain, nausea, vomiting, leg swelling. Patient had a speech and swallow eval yesterday which he said went fine. She has no other complaints at this time. Discussion was had about patient's current condition for an extended period of time. All questions were answered at bedside. Other systems 10 point review of systems was negative except for what stated above in the subjective Objective Physical Examination General Exam: Positive: Alert, No Acute Distress (patient appears much more comfortable today. Speaking in full sentences.) Eye Exam: Positive: PERRLA, Conjunctiva & lids normal, EOMI; Negative: Sclera icteric ENT Exam: Positive: Atraumatic, Mucous membr. moist/pink Neck Exam: Positive: Supple; Negative: JVD Chest Exam: Positive: Normal air movement, Diminished, Other (minimal bibasilar crackles noted); Negative: Rales, Rhonchi, Wheezing Heart Exam: Positive: Rate Normal, Regular Rhythm, Normal S1, Normal S2, Joyce ps Abdomen Exam: Positive: Normal bowel sounds, Soft; Negative: Tenderness, Hepatospenomegaly Extremity Exam: Positive: Other (left arm appears to be contracted unable to move due to his prior stroke); Negative: Clubbing, Cyanosis, Edema Skin Exam: Positive: Nl turgor and temperature; Negative: Rash, Breakdown Neuro Exam: Positive: Normal Speech, Normal Tone, Cranial Nerves 3-12 NL Psych Exam: Positive: Mental status NL, Mood NL, Oriented x 3 Assessment /Plan Assessment 69-year-old male with multiple medical comorbidities presents as a direct admission from [facility] for worsening short of breath and hypoxemic respiratory failure 2/2 acute on chronic CHF exacerbation. Patient's diuresis has slowed and appears to be clinically dry today. I believe patient is back and is euvolemic state. Workup Lasix down to 40 mg IV daily for now and reassess. 4 catheter to be pulled today and voiding felt to be had. Anticipate patient should be discharged within 24-48 hours pending his response to treatment. Plan/VTE VTE Prophylaxis Ordered?: No Plan Diet: Advance Activity: Continue Current, Advance, Encourage Ambulation Therapy: PT, OT Medications: Other Med: (Taper down diuretics) Respiratory: Wean Oxygen Anticipated Discharge: Home, Home With Services, Sub Acute Rehab Advance Directives: DNR Hypoxemic respiratory failure likely due to acute CHFrEF exacerbation Imaging studies show only vascular congestion which is consistent with CHF exacerbation. Echo shows a depressed EF of 20% which is unchanged from prior. Patient continues to diurese pretty well. Appears to be clinically euvolemic at this time. We'll start tapering down Lasix therapy -Decreased to IV Lasix once daily - Follow up sputum cultures - Follow up blood cultures - drawn at prior hospital negative today - Supplemental O2 to maintain saturation greater than 92% - wean off as tolerated Stage IIIB lung cancer Patient on keytruda at this time. Follows with Dr. Choi of oncology. As per last oncology note, cancer had not Progressed on Most Recent PET Scan. Patient will require follow-up as outpatient. - Hold keytruda for now while inpt - Will consider oncology consult patient does not improve with diuresis CHF with reduced ejection fraction exacerbation Recent history of [place] Coronary artery disease status post CABG Chronic atrial fibrillation Patient continues to diurese well at this time. He is an net -4 L so far during this hospital admission. Will begin to taper down diuretics given his euvolemic state -Lasix IV 40 mg daily - Daily weights - 1.5 L fluid infection - Strict I's and O's - Continue with carvedilol, amiodarone, spironolactone - Continue statin - c/w xarelto CVA with left-sided residual deficits Patient has known chronic A. fib. Currently on xarelto. Patient has residual left-sided deficits. Patient has been participating well with physical therapy. We'll continue to monitor - c/w xarelto, statin -Continue with aggressive physical therapy VS, I&O, 24H, Fishbone Vital Signs/I&O Vital Signs Date Time Temp Pulse Resp B/P (MAP) Pulse Ox O2 Delivery O2 Flow Rate FiO2 06/01/19 08:54 72 108/58 06/01/19 06:00 97.2 17 Room Air 05/31/19 22:00 93 05/31/19 21:00 1.0 I&O- Last 24 Hours up to 6 AM 06/01/19 05:59 Intake Total 780 ml Output Total 1350 ml Balance -570 ml Laboratory Data 24H LABS Laboratory Tests 2 06/01/19 05:30: Nucleated Red Blood Cells % (auto) 0.0, Anion Gap 8, Glomerular Filtration Rate > 60.0, Calcium Level 8.6L, Magnesium Level 2.2 CBC/BMP Laboratory Tests 06/01/19 05:30 Microbiology Microbiology 05/29/19 Respiratory Panel (PCR) - Final, Complete ANTHONY CAT MD Jun 01, 2019 10:08
[2019-06-01] MEDS ORDERED: POTASSIUM CHLORIDE 10 MEQ SR TABLET PO ONE (12:00)
[2019-06-01 14:00] VITALS: BP 111/71
[2019-06-01] MEDS: RIVAROXABAN 20 MG TAB (XARELTO) PO SCH (18:45)
[2019-06-01] MEDS: ROSUVASTATIN 10 MG TAB (CRESTOR) PO SCH (20:09)
[2019-06-01] MEDS: RAMELTEON 8 MG TAB (ROZEREM) PO SCH (20:09)
[2019-06-01 21:00] VITALS: O2SAT 93
[2019-06-01 22:00] VITALS: BP 90/58
[2019-06-02 05:17] VITALS: BP 80/50
[2019-06-02] MEDS: SLF 3 ML SYR IV SCH ×3 (05:18→21:38)
[2019-06-02] MEDS ORDERED: NS 500 ML IV ONE ×2 (05:45→06:30)
[2019-06-02 06:17] VITALS: BP 90/54
[2019-06-02 06:34] LABS: BLOOD UREA NITROGEN 19 MG/DL (7-18); CALCIUM LEVEL 9.3 MG/DL (8.8-10.2); CARBON DIOXIDE LEVEL 35 MEQ/L (21-32); CHLORIDE LEVEL 98 MEQ/L (98-107); CREATININE FOR GFR 0.89 MG/DL (0.70-1.30); GLOMERULAR FILTRATION RATE > 60.0 (>42); GLUCOSE, FASTING 88 MG/DL (70-100); MAGNESIUM LEVEL 2.2 MG/DL (1.8-2.4); POTASSIUM SERUM 3.9 MEQ/L (3.5-5.1); SODIUM LEVEL 137 MEQ/L (136-145)
[2019-06-02 07:30] VITALS: BP 88/46
[2019-06-02] MEDS: CARVedilol 6.25 MG TAB PO SCH ×2 (09:00→21:00)
[2019-06-02] MEDS: SODIUM CHLORIDE 0.9% INJ 10 ML SYR IV SCH (09:00)
[2019-06-02] MEDS: DOCUSATE SODIUM 100 MG CAP PO SCH ×2 (09:36→21:31)
[2019-06-02] MEDS: OMEPRAZOLE 20 MG CAP PO SCH (09:36)
[2019-06-02] MEDS: AMIODARONE 200 MG TAB (PACERONE) PO SCH (09:36)
[2019-06-02] MEDS: SPIRONOLACTONE 25 MG TAB PO SCH (09:36)
[2019-06-02 14:00] VITALS: BP 104/66
--- NOTE | 2019-06-02 14:28 | IPNPDOC ---
Subjective Date Seen The patient was seen on 06/02/19. Subjective Chief Complaint/HPI Patient seen and examined at bedside this morning. As per overnight staff, patient was found to be hypotensive this morning was given 500 mL bolus 2. Patient reports he was a symptomatically this time. He states that he is breathing better and that he is feeling well. Patient was wondering when he could go home. He denies any recent fevers, chills, shortness of breath, chest pain, abdominal pain, nausea, vomiting. Patient's care plan was discussed with him at length. Patient understands that he will get PT eval tomorrow and once as complete and patient remains in good health, he can be discharged. No other complaint at this time. Other systems 10 point review of systems is negative except for what stated above in the subjective Objective Physical Examination General Exam: Positive: Alert, No Acute Distress (patient appears much more comfortable today. Speaking in full sentences.) Eye Exam: Positive: PERRLA, Conjunctiva & lids normal, EOMI; Negative: Sclera icteric ENT Exam: Positive: Atraumatic, Mucous membr. moist/pink Neck Exam: Positive: Supple; Negative: JVD Chest Exam: Positive: Normal air movement, Diminished, Other (minimal bibasilar crackles noted); Negative: Rales, Rhonchi, Wheezing Heart Exam: Positive: Rate Normal, Regular Rhythm, Normal S1, Normal S2, Gallops Abdomen Exam: Positive: Normal bowel sounds, Soft; Negative: Tenderness, Hepatospenomegaly Extremity Exam: Positive: Other (left arm appears to be contracted unable to move due to his prior stroke); Negative: Clubbing, Cyanosis, Edema Skin Exam: Positive: Nl turgor and temperature; Negative: Rash, Breakdown Neuro Exam: Positive: Normal Speech, Normal Tone, Cranial Nerves 3-12 NL Psych Exam: Positive: Mental status NL, Mood NL, Oriented x 3 Assessment /Plan Assessment 69-year-old male with multiple medical comorbidities presents as a direct admission from [facility] for worsening short of breath and hypoxemic respiratory failure 2/2 acute on chronic CHF exacerbation. Patient was found to be hypotensive this morning which required 1 L and fluid boluses. he was asymptomatic and his blood pressure has improved without further intervention. Diuretics were held today but will resume his home by mouth dosing starting tomorrow. Patient appears clinically euvolemic at this time. Patient will need PT eval to ensure that he can go home safely. Anticipate discharge in the next 24 to 48 hrs. Plan/VTE VTE Prophylaxis Ordered?: Yes Plan Diet: Advance Activity: Continue Current, Advance, Encourage Ambulation Therapy: PT, OT Medications: Other Med: (Taper down diuretics) Respiratory: Wean Oxygen Anticipated Discharge: Home, Home With Services, Sub Acute Rehab Advance Directives: DNR Hypoxemic respiratory failure likely due to acute CHFrEF exacerbation Imaging studies show only vascular congestion which is consistent with CHF exacerbation. Echo shows a depressed EF of 20% which is unchanged from prior. Patient found to be hypotensive this morning which required 1 L and fluid boluses. Currently normotensive at this time. Diuretics were held today. - holding Lasix dose today and will resume home by mouth dose tomorrow - Follow up sputum cultures - Follow up blood cultures - drawn at prior hospital negative today - Supplemental O2 to maintain saturation greater than 92% - wean off as tolerated Stage IIIB lung cancer Patient on keytruda at this time. Follows with Dr. Choi of oncology. As per last oncology note, cancer had not Progressed on Most Recent PET Scan. Patient will require follow-up as outpatient. - Hold keytruda for now while inpt - Will consider oncology consult patient does not improve with diuresis CHF with reduced ejection fraction exacerbation Recent history of [place] Coronary artery disease status post CABG Chronic atrial fibrillation Patient continues to diurese well at this time. He is an net -4 L so far during this hospital admission. Will begin to taper down diuretics given his euvolemic state - Resume home Lasix dosing starting tomorrow - Daily weights - 1.5 L fluid infection - Strict I's and O's - Continue with carvedilol, amiodarone, spironolactone - Continue statin - c/w xarelto CVA with left-sided residual deficits Patient has known chronic A. fib. Currently on xarelto. Patient has residual left-sided deficits. Patient has been participating well with physical therapy. We'll continue to monitor - c/w xarelto, statin -Continue with aggressive physical therapy VS, I&O, 24H, Fishbone Vital Signs/I&O Vital Signs Date Time Temp Pulse Resp B/P (MAP) Pulse Ox O2 Delivery O2 Flow Rate FiO2 06/02/19 12:05 95 Nasal Cannula 2.0 06/02/19 09:00 70 106/68 06/02/19 06:00 97.8 18 I&O- Last 24 Hours up to 6 AM 06/02/19 05:59 Intake Total 930 ml Output Total 750 ml Balance 180 ml Laboratory Data 24H LABS Laboratory Tests 2 06/02/19 05:48: Anion Gap 4L, Glomerular Filtration Rate > 60.0, Calcium Level 9.3, Magnesium Level 2.2 CBC/BMP Laboratory Tests 06/02/19 05:48 Microbiology Microbiology 05/29/19 Respiratory Panel (PCR) - Final, Complete ANTHONY CAT MD Jun 02, 2019 14:28
[2019-06-02] MEDS: RIVAROXABAN 20 MG TAB (XARELTO) PO SCH (18:10)
[2019-06-02] MEDS: ROSUVASTATIN 10 MG TAB (CRESTOR) PO SCH (21:31)
[2019-06-02] MEDS: RAMELTEON 8 MG TAB (ROZEREM) PO SCH (21:32)
[2019-06-02 22:00] VITALS: BP 98/61
[2019-06-02 23:55] LABS: AMORPHOUS SEDIMENT SMALL (NEGATIVE); APPEARANCE, URINE CLOUDY (CLEAR); BACTERIA, URINE AUTO NEGATIVE (NEGATIVE); BILIRUBIN, URINE AUTO NEGATIVE (NEGATIVE); BLOOD, URINE BLOOD 2+ (NEGATIVE); COLOR, URINE AMBER (YELLOW); GLUCOSE, URINE (UA) AUTO NEGATIVE (NEGATIVE); KETONE, URINE AUTO NEGATIVE (NEGATIVE); LEUKOCYTE ESTERASE, URINE AUTO NEGATIVE (NEGATIVE); NITRITE, URINE AUTO NEGATIVE (NEGATIVE); PROTEIN, URINE AUTO 1+ mg/dL (NEGATIVE); RBC, URINE AUTO 109 /HPF (0-3); SPECIFIC GRAVITY URINE AUTO 1.021 (1.002-1.035); SQUAMOUS EPITHELIAL CELL UR AU 0 /HPF (0-6); WBC, URINE AUTO 1 /HPF (0-3)
[2019-06-03 06:00] VITALS: BP 98/63
[2019-06-03] MEDS: SLF 3 ML SYR IV SCH (06:07)
[2019-06-03 06:38] LABS: BLOOD UREA NITROGEN 16 MG/DL (7-18); CALCIUM LEVEL 8.8 MG/DL (8.8-10.2); CARBON DIOXIDE LEVEL 32 MEQ/L (21-32); CHLORIDE LEVEL 101 MEQ/L (98-107); GLOMERULAR FILTRATION RATE > 60.0 (>42); GLUCOSE, FASTING 85 MG/DL (70-100); MAGNESIUM LEVEL 2.3 MG/DL (1.8-2.4); SODIUM LEVEL 137 MEQ/L (136-145)
[2019-06-03 09:00] VITALS: BP 99/63
[2019-06-03] MEDS: CARVedilol 6.25 MG TAB PO SCH ×2 (09:00→09:49)
[2019-06-03] MEDS: SODIUM CHLORIDE 0.9% INJ 10 ML SYR IV SCH (09:00)
[2019-06-03] MEDS ORDERED: FUROSEMIDE 40 MG TAB PO SCH (09:00)
[2019-06-03] MEDS: SPIRONOLACTONE 25 MG TAB PO SCH (09:46)
[2019-06-03] MEDS: AMIODARONE 200 MG TAB (PACERONE) PO SCH (09:47)
[2019-06-03] MEDS: DOCUSATE SODIUM 100 MG CAP PO SCH (09:47)
[2019-06-03] MEDS: OMEPRAZOLE 20 MG CAP PO SCH (09:47)
--- NOTE | 2019-06-03 09:56 | DS.PDOC ---
Discharge Summary General Date of Admission May 29, 2019 at 11:02 Date of Discharge 06/03/19 Discharge Summary PROCEDURES PERFORMED DURING STAY: None. ADMITTING DIAGNOSES: 1. Fluid overload likely due to CHF exacerbation. DISCHARGE DIAGNOSES: 1. Acute on chronic systolic CHF exacerbation. COMPLICATIONS/CHIEF COMPLAINT: Acute Hypoxic Resp. Failur, Pna, Covid R/O. HISTORY OF PRESENT ILLNESS: 69-year-old male with stage IIIB lung cancer, currently on keytruda, presents as a direct transfer from [facility] for hypoxic respiratory failure. Patient reports that symptoms began approximately 3 weeks ago. Over the past several weeks, he has had worsening shortness of breath and decreased exercise tolerance. Recently he has been undergoing multiple medical issues including recent PA 2 months prior. Patient states that on day of presentation, he was unable to catch his breath and felt chest was very tight. He experienced similar symptoms like this before in the past when he had significant pleural effusions which required drainage.Due to his symptoms, he went to [facility] for evaluation. While undergoing workup there, he was noted to have increased pulmonary vascular congestion and elevated BNP of greater than 6000. He was treated with IV Lasix and then transferred over to [facility] for further evaluation and management. Patient currently denies any fevers, chills, abdominal pain, chest pain, nausea, vomiting, leg swelling. He endorses and inability to lie flat. He also states that he has a worsening cough at nighttime compared to the mornings. He says cough is sometimes productive of white sputum. He denies any recent sick contacts or travel history to note areas of Covid. Patient was last seen by his oncologist one month prior and had been doing well at that time. Patient to be admitted to hospital service for further management and treatment.. HOSPITAL COURSE: Patient was admitted to the medical floor for further evaluation and management. Patient was found to be in a profoundly fluid overload state based on labs and imaging. Patient was started on IV diuresis and patient diuresed well. Approximately 6 plus liters lost during patient's aggress umesh diuresis and he felt much better. Oxygenation requirements went down and is now currently saturating as baseline. Patient was also evaluated by speech pathologist due to concern for possible aspiration risk. Patient underwent's fluoroscopic studies which did reveal some oropharyngeal dysfunction. Specific diet instructions were given and patient was able to tolerate his diet well. PT evaluated the patient and he was able to ambulate without difficulty. Patient is now medically stable for discharge at this time. Discharged back on his current home dose of Lasix and is instructed to be wary of his fluid intake as well as type of fluids he is drinking.. DISCHARGE MEDICATIONS: Please see below. ALLERGIES: Please see below. PHYSICAL EXAMINATION ON DISCHARGE: General Exam: Positive: Alert, No Acute Distress (patient appears much more comfortable today. Speaking in full sentences.) Eye Exam: Positive: PERRLA, Conjunctiva & lids normal, EOMI; Negative: Sclera icteric ENT Exam: Positive: Atraumatic, Mucous membr. moist/pink Neck Exam: Positive: Supple; Negative: JVD Chest Exam: Positive: Normal air movement, Diminished, Other (minimal bibasilar crackles noted); Negative: Rales, Rhonchi, Wheezing Heart Exam: Positive: Rate Normal, Regular Rhythm, Normal S1, Normal S2, Gallops Abdomen Exam: Positive: Normal bowel sounds, Soft; Negative: Tenderness, Hepatospenomegaly Extremity Exam: Positive: Other (left arm appears to be contracted unable to move due to his prior stroke); Negative: Clubbing, Cyanosis, Edema Skin Exam: Positive: Nl turgor and temperature; Negative: Rash, Breakdown Neuro Exam: Positive: Normal Speech, Normal Tone, Cranial Nerves 3-12 NL Psych Exam: Positive: Mental status NL, Mood NL, Oriented x 3 LABORATORY DATA: Please see below. IMAGING: CXR - Heart and mediastinum are unchanged in appearance. Large right hilar mass is again noted, unchanged. There are multiple sternal wires again noted as well as a right MediPort catheter. There is a left pacemaker. Mild blunting of the right costophrenic angle suggests a small amount of right pleural fluid or thickening. Pulmonary vasculature appears increased, and there also appears to be increase in interstitial markings bilaterally suggesting possible interstitial edema, somewhat more so on the left than on the right. Echocardiogram - IMPRESSION: 1. Severe global left ventricular systolic dysfunction with a dilated left ventricle. Assessment of the left ventricular diastolic function was limited. 2. Aortic valve sclerosis without stenosis or aortic regurgitation. 3. Mitral annulus calcification with mildly enlarged left atrium and mild mitral regurgitation. 4. Mild tricuspid regurgitation with a normal calculated pulmonary artery systolic pressure. The right atrium also appeared to be mildly enlarged. 5. Mild pulmonic regurgitation. 6. The inferior vena cava was dilated; central venous pressure is most likely elevated. 7. Most recent echocardiogram was in March of 2019 and, at that time, moderate mitral regurgitation was detected. 8. Pacemaker/automatic implantable cardioverter-defibrillator (AICD) wire artifacts noted in limited views. PROGNOSIS: Guarded but optimistic ACTIVITY: As tolerated. DIET: 1.5 L fluid restriction, low sodium diet DISCHARGE PLAN: Medically stable for discharge home DISCHARGE INSTRUCTIONS: 1. Please follow-up with her PCP within the next 5-7 days. 2. If you feel yourself getting fluid overloaded and having difficulty breathing, please take an additional Lasix dose at that time. If symptoms did not resolve, please go to the ER or follow up immediately with your PCP. 3. He will not be discharged on any new medications.. ITEMS TO FOLLOWUP ON ON OUTPATIENT: 1. Patient's weight and respiratory status. DISCHARGE CONDITION: Medically stable for discharge. TIME SPENT ON DISCHARGE: 25 minutes Vital Signs/I&Os Vital Signs Date Time Temp Pulse Resp B/P (MAP) Pulse Ox O2 Delivery O2 Flow Rate FiO2 06/03/19 06:00 98.2 70 17 98/63 (75) 97 Room Air 06/02/19 22:30 0.5 I&O- Last 24 Hours up to 6 AM 06/03/19 06:00 Intake Total 2110 ml Output Total 450 ml Balance 1660 ml Laboratory Data Labs 24H Laboratory Tests 2 06/02/19 23:42: Urine Color MIREYA, Urine Appearance CLOUDYH, Urine pH 7.0, Urine Specific [place] 1.021, Urine Protein 1+H, Urine Glucose (Auto)(UA) NEGATIVE, Urine Ketones (Auto) NEGATIVE, Urine Blood 2+H, Urine Nitrite NEGATIVE, Urine Bilirubin NEGATIVE, Urine Urobilinogen 4.0H, Urine Leukocyte Esterase (Auto) NEGATIVE, Urine WBC (Auto) 1, Urine RBC (Auto) 109H, Urine Hyaline Casts (Auto) 0, Urine Bacteria (Auto) NEGATIVE, Urine Squamous Epithelial Cells 0, Urine Amorphous Sediment (Auto) SMALLH, Urine Sperm (Auto) 06/03/19 05:45: Anion Gap 4L, Glomerular Filtration Rate > 60.0, Calcium Level 8.8, Magnesium Level 2.3 CBC/BMP Laboratory Tests 06/03/19 05:45 Microbiology Microbiology 05/29/19 Respiratory Panel (PCR) - Final, Complete Discharge Medications Scheduled Amiodarone HCl (Amiodarone HCl) 200 Mg Tablet, 400 MG PO DAILY, (Reported) Carvedilol (Carvedilol) 6.25 Mg Tab, 6.25 MG PO BID, (Reported) Cholecalciferol (Vitamin D3) (D3-2000) 50 Mcg Capsule, 2,000 UNITS PO DAILY, (Reported) Furosemide (Furosemide) 40 Mg Tab, 40 MG PO DAILY, (Reported) Omeprazole Magnesium (Prilosec Otc) 20 Mg Tablet.dr, 10 MG PO DAILY, (Reported) Pembrolizumab (Keytruda) 100 Mg/4 Ml Vial, 1 DOSE IV ASDIRECTED, (Reported) patient gets infusion every 3 weeks, is scheduled for 05/30/19 but had to cancel, missed May 08 appointment per Franca (his ). Rivaroxaban (Xarelto) 20 Mg Tab, 20 MG PO QPM, (Reported) Rosuvastatin Calcium (Rosuvastatin Calcium) 40 Mg Tablet, 20 MG PO QPM, (Reported) Spironolactone (Spironolactone) 25 Mg Tablet, 25 MG PO QAM, (Reported) Scheduled PRN Acetaminophen (Acetaminophen) 500 Mg Tab, 1,000 MG PO TID PRN for PAIN / FEVER, (Reported) Allergies Coded Allergies: No Known Allergies (Unverified , 08/07/17) ANTHONY CAT MD Jun 03, 2019 09:55
[2019-06-03] MEDS ORDERED: diphenhydrAMINE CREAM 30GM TOP ONE (12:00)
== END 2019-06-03 13:58 | disposition home or self-care (01) | DRG 291 ==
LOC: M PCU 11:02 → M MSPAV 05-31 16:34
PROVIDERS: ADMIT Internal Medicine; ATTEND Internal Medicine
DX: I50.33 Acute on chronic diastolic (congestive) heart failure (principal); J96.01 Acute respiratory failure with hypoxia; C34.91 Malignant neoplasm of unspecified part of right bronchus or lung; I69.354 Hemiplegia and hemiparesis following cerebral infarction affecting left non-dominant side; I48.20 Chronic atrial fibrillation, unspecified; I25.10 Atherosclerotic heart disease of native coronary artery without angina pectoris; I95.9 Hypotension, unspecified; I25.2 Old myocardial infarction; Z66 Do not resuscitate; Z95.810 Presence of automatic (implantable) cardiac defibrillator; Z95.1 Presence of aortocoronary bypass graft; Z79.01 Long term (current) use of anticoagulants; Z79.899 Other long term (current) drug therapy; Z87.891 Personal history of nicotine dependence

== ENCOUNTER → 2019-07-19 | Outpatient (CLI) | payer MEDICARE ==
[~2019-07-19] MED LIST changes: +KEYT1INJ IV; +SPIR-10 PO; +VITA200012 PO
--- NOTE | 2019-07-20 11:20 | REP ---
CHEST, TWO VIEWS: Two views of the chest are performed and compared to prior studies 05/29/2019 and 03/24/2019. Right hilar mass is again noted, possibly mildly decreased in size. There is right pleural fluid, which appears similar to the prior study, with mild right base parenchymal opacity. There appears to be mild herniation of lung laterally in the right lower hemithorax. Left lung infiltrates are improved with mild residual. Multiple sternal wires are again noted as well as a pacemaker. IMPRESSION: Right hilar mass may have mildly decreased in size. Right pleural fluid again noted, appearing similar to the prior study. There appears to be mild herniation of lung laterally in the right lower hemithorax. There are mild left lung infiltrates, which have improved since the prior study. Right central venous catheter is again noted. Electronically Signed by Matt Vallejo MD 07/23/2019 06:57 P
== END ==
LOC: M RAD 11:11
PROVIDERS: ATTEND Specialist
DX: C34.90 Malignant neoplasm of unspecified part of unspecified bronchus or lung (principal)

== ENCOUNTER → 2019-07-22 | Outpatient (CLI) | payer MEDICARE ==
--- NOTE | 2019-07-22 14:53 | REP ---
CHEST X-RAY: Two views. HISTORY: The patient is scheduled for ultrasound-guided thoracentesis. Pre-procedure imaging. Comparison study July 19, 2019. FINDINGS: There is a right hilar mass lesion again noted. There is blunting of the right lateral pleural angle. There is some linear fibrosis in the right apex and pleuroparenchymal thickening is seen on the right. There is no evidence of pneumothorax on inspiration or expiration films. Prior median sternotomy wires and pacemaker leads are again noted unchanged. IMPRESSION: No evidence of pneumothorax on pre-procedure imaging. There is right-sided pleural effusion with areas of pleuroparenchymal fibrosis and a large right hilar mass effect. Electronically Signed by Chris Conklin MD 07/22/2019 03:00 P
--- NOTE | 2019-07-22 15:28 | REP ---
CHEST X-RAY: TWO VIEWS. HISTORY: Post thoracentesis imaging. Comparison study is from pre-procedure chest x-ray on this date. FINDINGS: The right pleural effusion is much improved. There is no evidence of pneumothorax or other complication. A right-sided [id number] catheter is seen. Pacemaker leads are again noted. A right hilar mass effect is again noted. IMPRESSION: Improved right pleural effusion. No complication is identified. Electronically Signed by Chris Conklin MD 07/22/2019 06:16 P
[2019-07-22 16:45] VITALS: BP 135/68
--- NOTE | 2019-07-22 18:28 | REP ---
ULTRASOUND-GUIDED RIGHT THORACENTESIS The procedure was performed under the direct supervision of Dr. Conklin. The risks and benefits of the procedure were explained to the patient and informed consent was obtained. The right pleural effusion was localized using ultrasound guidance. The skin was prepped and draped in a sterile fashion. 1% lidocaine was used as a local anesthetic. Using ultrasound guidance an 8-Italian multi side-hole catheter was inserted using trocar technique. 2080 ml of cabrera colored fluid was withdrawn and discarded. The patient tolerated the procedure well and there were no immediate complications. After the appropriate amount of monitored convalescence the patient was discharged from the department. Electronically Signed by JEFFY Judge 07/22/2019 03:30 P Electronically Signed by Chris Conklin MD 07/22/2019 06:19 P
== END ==
LOC: M IRPRO 13:00
PROVIDERS: ATTEND Specialist
DX: J90 Pleural effusion, not elsewhere classified (principal); C34.91 Malignant neoplasm of unspecified part of right bronchus or lung

== ENCOUNTER → 2019-08-06 | Outpatient (CLI) | payer MEDICARE ==
[~2019-08-06] MED LIST changes: +ISOVUE-370 76% 100ML VIAL As Ordered ONE
--- NOTE | 2019-08-06 08:36 | REP ---
Clinical: Lung cancer. Restaging. Knee: Axial contrast enhanced images from the thoracic inlet to the upper abdomen with coronal and sagittal re-formations using 75 ml Isovue 370 intravenous contrast material. Comparison: 03/15/2019. Findings: A moderate right pleural effusion is identified along with consolidation/collapse of the right upper lobe secondary to intrinsic obstruction or extrinsic compression of the proximal right upper lobe bronchus. A posterior right infrahilar mass measuring 3.1 cm (image 55) is also appreciated. Small irregular patchy infiltrates in the aerated right lower lobe and scattered within the left upper lobe and left lower lobe are identified which are nonspecific but appears somewhat improved as compared to prior examination. No obvious significant mediastinal adenopathy. Mediastinum demonstrates stable atherosclerotic changes to the thoracic aorta and coronary arteries without aortic aneurysm. Cardiomegaly is appreciated without pericardial effusion. Limited upper abdomen demonstrates normal bilateral adrenal glands. Surrounding musculoskeletal structures demonstrate age-related degenerative changes. Impression: 1. Right-sided changes are similar to prior examination although the identified right posterior infrahilar mass on current examination appears somewhat more obvious due to slight decrease in the surrounding pleural effusion. 2. Patchy scattered ill-defined infiltrates noted on prior examination bilaterally appears slightly improved. Electronically Signed by Abiodun Hendricks MD 08/06/2019 08:28 A
== END ==
LOC: M RAD 07:19
PROVIDERS: ATTEND Specialist
DX: C34.91 Malignant neoplasm of unspecified part of right bronchus or lung (principal)
CPT/HCPCS: 71260; Q9967